=== PATIENT | female | born 1950 | race Caucasian/White ===

== ENCOUNTER → 2016-09-04 | Outpatient (CLI) | payer BC ==
[~2016-09-04] MED LIST: ALBUAER2 INH; CALC500C3 PO; CLR10 PO; EFFSR150 PO; GABA-113 PO; GFNSR600 PO; LEVO200T PO; LISI-725 PO; MOME50SP5; MULT-506 PO; OMEG10007 PO; PRLSR20 PO; SIMV40TA2 PO; SNG10 PO; SODI5OIN4 OPB; ZNTT/150 PO
[2016-09-04 17:42] LABS: ALT/SGPT 29 U/L (12-78); BLOOD UREA NITROGEN 18 mg/dl (7-18); BUN/CREATININE RATIO 23.3 (10-20); CALCIUM 9.5 mg/dl (8.5-10.1); CARBON DIOXIDE 31 mmol/L (21-32); CHLORIDE 100 mmol/L (98-107); CHOLESTEROL 162 mg/dl (0-200); CREATININE 0.75 mg/dl (0.60-1.20); GLUCOSE 96 mg/dl (70-99); POTASSIUM 3.8 mmol/L (3.5-5.1); SODIUM 140 mmol/L (136-145)
[2016-09-04 17:53] LABS: ALB/GLOB RATIO 0.9 (0.9-2); ALKALINE PHOSPHATASE 110 U/L (45-117); AST/SGOT 24 U/L (15-37); CHOLESTEROL/HDL RATIO 3.3; HDL CHOLESTEROL 49 mg/dl; LDL CHOLESTEROL CALCULATED 93 mg/dl; THYROID STIMULATING HORMONE 0.149 uIu/ml (0.300-4.500); TRIGLYCERIDES 102 mg/dl (0-150); VERY LOW DENSITY LIPOPROT CALC 20 mg/dl
== END | disposition home or self-care (01) ==
LOC: C.LABPVFM 10:53
PROVIDERS: ATTEND Family Medicine
DX: I10 Essential (primary) hypertension (principal); E78.00 Pure hypercholesterolemia, unspecified; E03.9 Hypothyroidism, unspecified; F32.9 Major depressive disorder, single episode, unspecified; R74.8 Abnormal levels of other serum enzymes; R73.9 Hyperglycemia, unspecified

== ENCOUNTER → 2017-04-23 | Outpatient (CLI) | payer BC ==
[2017-04-23 17:54] LABS: ALT/SGPT 31 U/L (12-78); AST/SGOT 26 U/L (15-37); BLOOD UREA NITROGEN 15 mg/dl (7-18); BUN/CREATININE RATIO 19.4 (10-20); CARBON DIOXIDE 35 mmol/L (21-32); CHLORIDE 99 mmol/L (98-107); CREATININE 0.75 mg/dl (0.60-1.20); GLUCOSE 96 mg/dl (70-99); POTASSIUM 3.9 mmol/L (3.5-5.1); SODIUM 137 mmol/L (136-145)
[2017-04-23 18:05] LABS: ALB/GLOB RATIO 0.9 (0.9-2); ALKALINE PHOSPHATASE 107 U/L (45-117); CHOLESTEROL 169 mg/dl (0-200); CHOLESTEROL/HDL RATIO 3.4; HDL CHOLESTEROL 49 mg/dl; LDL CHOLESTEROL CALCULATED 96 mg/dl; TRIGLYCERIDES 121 mg/dl (0-150); VERY LOW DENSITY LIPOPROT CALC 24 mg/dl
[2017-04-23 18:44] LABS: ESTIMATED AVERAGE GLUCOSE 128 mg/dl; HA1C FLAG Normal (Normal)
== END | disposition home or self-care (01) ==
LOC: C.LABPVFM 11:46
PROVIDERS: ATTEND Family Medicine
DX: I10 Essential (primary) hypertension (principal); R73.01 Impaired fasting glucose; E78.00 Pure hypercholesterolemia, unspecified; E03.9 Hypothyroidism, unspecified

== ENCOUNTER → 2017-05-19 | Outpatient (CLI) | payer BC ==
--- NOTE | 2017-05-19 10:49 | DIAGNOSTIC IMAGING REPORT ---
R RIBS UNILATERAL WITH PA CHEST CLINICAL HISTORY: 66 years-old Female presenting with RIB PAIN ON RT SIDE. TECHNIQUE: Frontal and oblique views of the right ribs and PA view of the chest were obtained. COMPARISON: None. FINDINGS: Atherosclerosis of aortic arch. Cardiac silhouette normal in size. Lungs and pleural spaces clear. Degenerative changes of the spine. Minimal cortical discontinuity of the lateral right seventh rib suggesting acute fracture. IMPRESSION: Findings concerning for acute fracture of the right lateral seventh rib. Electronically signed by: Mario Rubio M.D. 05/19/2017 10:48 AM Dictated Date/Time: 05/19/2017 10:46 AM
== END | disposition home or self-care (01) ==
LOC: C.RADPV 10:16
PROVIDERS: ATTEND Family Medicine
DX: R07.81 Pleurodynia (principal)

== ENCOUNTER → 2017-07-16 | Outpatient (CLI) | payer BC ==
--- NOTE | 2017-07-16 14:35 | MAMMOGRAPHY REPORT ---
BILATERAL DIGITAL SCREENING MAMMOGRAM WITH CAD: 07/16/2017 CLINICAL HISTORY: Routine screening. Patient has no complaints. TECHNIQUE: Current study was also evaluated with a Computer Aided Detection (CAD) system. Bilateral CC and MLO views were obtained. COMPARISON: Comparison is made to exams dated: 07/15/2016 mammogram, 07/10/2015 mammogram, 4 mammogram, 07/05/2013 mammogram, 07/01/2012 mammogram, and 06/17/2011 mammogram - [facility]. BREAST COMPOSITION: There are scattered areas of fibroglandular density in both breasts. FINDINGS: No suspicious masses, calcifications, or areas of architectural distortion are noted in ei ther breast. There has been no significant interval change compared to prior exams. IMPRESSION: ACR BI-RADS CATEGORY 1: NEGATIVE There is no mammographic evidence of malignancy. A 1 year screening mammogram is recommended. The pa tient will receive written notification of the results. Approximately 10% of breast cancers are not detected with mammography. A negative mammographic report should not delay biopsy if a clinically suggestive mass is present. Subha Ruiz M.D. /:07/16/2017 11:38:39 Forging Operator: Mary WAHL)(Jeff), [facility] letter sent: Normal 1/2 BI-RADS Code: ACR BI-RADS Category 1: Negative
== END | disposition home or self-care (01) ==
LOC: C.MAMM 10:50
PROVIDERS: ATTEND Obstetrics & Gynecology
DX: Z12.31 Encounter for screening mammogram for malignant neoplasm of breast (principal)

== ENCOUNTER 2019-01-31 08:19 | Inpatient (IN) ==
--- NOTE | 2019-01-28 08:46 | Anesthesiology Consultation ---
Date of Service January 28, 2019 Assessment & Plan (1) Encounter for pre-operative examination: Wound clinic clearance 01/20/2019: Regarding venous stasis ulcers of both lower extremities: "The patient's wound has remained healed...She has been cleared to have her shoulder surgery." CHECK BSG AM DOS CHECK BMP AM DOS Chart Review Chart Review: Acceptable Risk for Surgery (pending BMP results AM DOS) and Patient NOT seen in Pre Admission Testing History Surgery Operation Date: 01/31/19 12:40 Proposed Procedures p Left Shoulder Arthroscopy with Rotator Cuff Repair, Subacromial Decompression, Distal Clavicle Excision - Raoul Trevizo MD Height/Weight Height: 5 ft 2 in Weight: 120.202 kg Allergies Allergy/AdvReac Type Severity Reaction Status Date / Time acetaminophen Allergy Mild RASH Verified 01/28/19 07:01 codeine Allergy Mild RASH Verified 01/28/19 07:01 Sulfa (Sulfonamide Allergy Mild RASH Verified 01/28/19 07:01 Antibiotics) sulfamethoxazole Allergy Mild RASH Verified 01/28/19 07:01 trimethoprim Allergy Mild RASH Verified 01/28/19 07:01 Medications Home Medications Medication Instructions Recorded Confirmed Last Taken albuterol sulfate HFA 90 2 puffs INH QID PRN 10/25/18 01/28/19 Unknown mcg/actuation aerosol inhaler calcium carbonate 200 mg calcium 1,000 mg PO QAM tab 10/25/18 01/28/19 Unknown (500 mg) chewable tablet geriatric multivit with iron and 1 tab PO QAM 10/25/18 01/28/19 Unknown minerals tablet levothyroxine 200 mcg tablet 200 mcg PO QAM 10/25/18 01/28/19 Unknown lisinopril 20 mg tablet 10 mg PO QAM 10/25/18 01/28/19 Unknown loratadine 10 mg tablet 10 mg PO QAM 10/25/18 01/28/19 Unknown mometasone 50 mcg/actuation nasal 2 sprays INTNAS DAILY 10/25/18 01/28/19 Unknown spray montelukast 10 mg tablet 10 mg PO QPM 10/25/18 01/28/19 Unknown omega-3 fatty acids 1,000 mg 1,000 mg PO QAM 10/25/18 01/28/19 Unknown capsule omeprazole 20 mg capsule,delayed 20 mg PO QPM 10/25/18 01/28/19 Unknown release ranitidine 150 mg tablet 150 mg PO 10/25/18 01/28/19 Unknown simvastatin 40 mg tablet 40 mg PO 10/25/18 01/28/19 Unknown sodium chloride 5 % eye ointment 1 appln OP 10/25/18 01/28/19 Unknown venlafaxine ER 150 mg 150 mg PO QA 10/25/18 01/28/19 Unknown capsule,extended release 24 hr calcium carbonate [Tums] 200 mg PO QA 01/28/19 01/28/19 Unknown hydrochlorothiazide 25 mg PO QA 01/28/19 01/28/19 Unknown metoprolol succinate 25 mg PO QA 01/28/19 01/28/19 Unknown solifenacin [Vesicare] 5 mg PO QPM 01/28/19 01/28/19 Unknown Past Medical History Medical History HTN (hypertension) (Acute) Hypothyroidism (Acute) Idiopathic peripheral neuropathy (Acute) Chronic venous insufficiency Depression Diabetes mellitus, type 2 diet controlled Fatty liver GERD (gastroesophageal reflux disease) History of left breast cancer s/p lumpectomy + tamoxifen x 5 years Hyperlipidemia Macular degeneration Osteoarthritis Seasonal allergies TMJ click Urinary incontinence Past Family History Family History Brother Family history of diabetes mellitus Past Surgical History Surgical History History of colonoscopy History of lumpectomy of left breast History of nasal surgery History of partial hysterectomy Social History Smoking Status: Never smoker Do You Dip or Chew Tobacco: No Hx Alcohol Use: No Hx Substance Use: No substance use type: does not use Testing Laboratory Results 01/25/19 WBC: 9.11 H/H: 14.3/41.6 PLATELETS: 302 A1C: 6.5% Electrocardiogram Date: 01/25/19 Findings: + ST @ (106) Left axis deviation. Minimal voltage criteria for LVH, maybe normal variant. Cannot rule out anterior infarct, age undetermined. Compared with EKG of 04/14/2008, nonspecific T wave abnormality has replaced inverted T waves in inferior leads. Chest X-Ray Date: 01/25/19 Findings: + NAD FINDINGS: Cardiomediastinal and hilar silhouettes are unchanged. Mild right hemidiaphragm elevation appears stable. Calcification the thoracic aortic arch. No pneumothorax, pleural effusion, focal airspace consolidation or overt pulmonary edema. Degenerative changes are seen about the shoulders and spine. IMPRESSION: No acute process. Stress Test Date: 12/24/17 Type: exercise Resting EF: 55-60% Negative exercise stress echocardiogram for ischemia at greater than 100% MPHR. The patient complained of no exercise-induced chest pain. Baseline ec hocardiogram notes normal left ventricular function. Mild tricuspid regurgitation.
--- NOTE | 2019-01-30 20:16 | History and Physical Report ---
DATE OF ADMISSION: 01/31/2019 CHIEF COMPLAINT: Left shoulder pain and weakness after a fall. HISTORY OF PRESENT ILLNESS: This is a 68-year-old female patient of Dr. Gomes who sustained a fall at home and injured her left shoulder. After failure of conservative treatment. An MRI confirmed that she had a rotator cuff tear, impingement and bursitis. The patient elected to proceed with a left shoulder arthroscopic rotator cuff repair and subacromial decompression. PAST MEDICAL HISTORY: Hypertension, hypercholesterolemia, irregular heartbeat, asthma, hypothyroidism, rheumatoid arthritis, TMJ, sciatica, acid reflux and obesity. SOCIAL HISTORY: Nonsmoker, nondrinker. PAST SURGICAL HISTORY: Nasal surgery, partial hysterectomy. FAMILY HISTORY: Noncontributory. REVIEW OF SYSTEMS: Chronic left shoulder pain and weakness, status post a fall; otherwise, denies any shortness of breath, chest pain, nausea, vomiting or any other joint complaints. MEDICATIONS: 1. Centrum Silver daily. 2. Claritin 10 mg daily. 3. Fish oil daily. 4. Hydrochlorothiazide 25 mg daily. 5. Levoxyl 150 mcg daily. 6. Metoprolol 25 mg daily. 7. Nasonex 2 sprays in each nostril twice daily. 8. Singulair 10 mg daily. 9. Iftikhar ophthalmic ointment to eyes at bedtime daily. 10. Omeprazole 20 mg daily. 11. ProAir HFA 108 mcg inhalation 2 puffs by mouth every 4 hours as needed. 12. Ranitidine 150 mg daily. 13. Simvastatin 40 mg daily. 14. Tums daily. 15. Venlafaxine 150 mg daily. 16. VESIcare 5 mg daily. ALLERGIES: TYLENOL WITH CODEINE, SEPTRA, AND SEASONAL ALLERGIES. PHYSICAL EXAMINATION: GENERAL: Well-developed, well-nourished 58-year-old female in no acute distress. She is alert and oriented x3 and pleasant. HEENT: Normocephalic, atraumatic. Extraocular motions are intact. Pupils are equal and reactive to light. HEART: Tachycardic at 100 today in the office. No murmurs. LUNGS: Clear. ABDOMEN: Soft, nontender, bowel sounds are present. EXTREMITIES: Left shoulder reveals active range of motion of 0-110, passively to 180. She has crepitation with range of motioning. She has 3/5 strength globally with pain. NEUROLOGIC: Neurovascularly, she is intact in her left upper extremity. DIAGNOSES: Left shoulder rotator cuff tear and impingement. She has a history of hypertension, hypercholesterolemia, irregular heartbeat, asthma, hypothyroidism, rheumatoid arthritis, temporomandibular joint sciatica, acid reflux, obesity. PLAN: The patient was advised of her diagnosis. Indications, risks, benefits, postop course have all been reviewed. The patient wished to proceed with a left shoulder arthroscopic rotator cuff repair and subacromial decompression. Necessary consent forms, preoperative testing and clearances will be obtained.
[~2019-01-31 08:19] MED LIST changes: -ALBUAER2 INH; -CALC500C3 PO; +CEFAZOLIN 3000MG 65 ML IV SCH; -CLR10 PO; +DEXAMETHASONE SOD INJ 4 MG/ML VIAL ONE; -EFFSR150 PO; +EPINEPHrine INJ 1 MG/ML AMP ONE; -GABA-113 PO; -GFNSR600 PO; -LEVO200T PO; +LIDOCAINE HCL 2% 2 ML VIAL/AMP(20MG/ML) INFIL ONE; -LISI-725 PO; +LR 15ML/HR IV SCH; +MIDAZOLAM HCL 1 MG/ML 2ML VIAL ONE; -MOME50SP5; -MULT-506 PO; -OMEG10007 PO; -PRLSR20 PO; +PROPOFOL IV EMULSION 10 MG/ML 20 ML VIAL IV ONE; +ROPIVACAINE 0.5% 5 MG/ML 30 ML VIAL ONE; -SIMV40TA2 PO; -SNG10 PO; -SODI5OIN4 OPB; +SUCCINYLCHOLINE CHLORIDE 20 MG/ML 10 ML VIAL ONE; -ZNTT/150 PO; +fentaNYL citrate 100 MCG/2 ML VIAL ONE
[2019-01-31] MEDS ORDERED: EpINEphrine HCL INJ 1 MG/ML 1ML SYRINGE ONE ×2 (08:50→12:28)
[2019-01-31 09:36] LABS: BUN Creatinine Ratio 20.6 (10-20); Calcium 9.8 mg/dl (8.5-10.1); Creatinine Clr Calc Pharmacy 77.5 ml/min; Est GFR (African American) 77.2; Est GFR (Non-African American) 66.6; Potassium 3.7 mmol/L (3.5-5.1)
--- NOTE | 2019-01-31 09:49 | History & Physical Bridge Note ---
Date of Service January 31, 2019 History & Physical Bridge Note I have examined the patient, reviewed the History & Physical and in the interval since the performance of the History & Physical I have noted the following changes of clinical significance: no changes noted
[2019-01-31] MEDS ORDERED: PHENYLEPHRINE HCL 10 MG/ML VIAL ONE ×2 (10:30→10:46)
[2019-01-31] MEDS ORDERED: ePHEDrine sulfate 50 MG/ML AMP ONE (10:30)
[2019-01-31] MEDS ORDERED: PROPOFOL IV EMULSION 10 MG/ML 20 ML VIAL IV ONE ×2 (11:34)
[2019-01-31] MEDS ORDERED: OXYCODONE/ACETAMINOPHEN 5mg/325mg TAB PO PRN ×2 (13:27)
--- NOTE | 2019-01-31 13:31 | Post Operative Brief Note ---
Immediate Post Op Note v1 Date of Surgery January 31, 2019 Pre & Post Diagnosis Operation Date: 01/31/19 11:00 Pre-Op Diagnosis: Chronic posttraumatic rotator cuff tear subacromial impingement and AC joint arthritis morbid obesity BMI 50.1 Post-Op Diagnosis: Chronic posttraumatic rotator cuff tear subacromial impingement AC joint arthritis and glenohumeral arthritis and subsynovial biceps tendon morbid obesity BMI 50.1 Procedure Operation Date: 01/31/19 11:00 Actual Procedures p Left Shoulder Arthroscopy with Rotator Cuff Repair, Rotator Cuff glenohumeral joint and bursal debridement, Subacromial Decompression, Distal Clavicle Excision(Left) - Raoul Trevizo MD Surgeon Raoul Trevizo MD Apartment Leasing Consultant Dickson WHITFIELD Estimated Blood Loss 15 Findings See Below Same as postop diagnosis with weight 5 foot 2 inch 124.3 kg with BMI 50.1 Specimens None Anesthesia Type General Regional Complications none Disposition Accompanied Patient To Recovery: No Disposition: Recovery Room Overlapping Procedure I was immediately available: during the entire case.
[2019-01-31] MEDS ORDERED: HYDROmorphone INJ 1 MG/ML SYRINGE IV PRN (13:48)
[2019-01-31] MEDS ORDERED: ePHEDrine sulfate 50 MG/ML AMP IV PRN (13:48)
[2019-01-31] MEDS ORDERED: LABETALOL HCL IV 5 MG/ML 20ML IV PRN (13:48)
[2019-01-31] MEDS ORDERED: FLUMAZENIL 0.1 MG/1 ML 10 ML VIAL IV PRN (13:48)
[2019-01-31] MEDS ORDERED: ATROPINE SULFATE 0.1 MG/ML 10ML SYR IV PRN (13:48)
[2019-01-31] MEDS ORDERED: ONDANSETRON INJ 2 MG/ML 2 ML VIAL IV PRN ×2 (13:48→17:59)
[2019-01-31] MEDS ORDERED: NALOXONE HCL 0.4 MG/1 ML VIAL/CARP IV PRN (13:48)
[2019-01-31] MEDS ORDERED: PROMETHAZINE HCL 12.5 MG in SODIUM CHLORIDE 0.9% 50 ML IV PRN (13:48)
--- NOTE | 2019-01-31 14:17 | Anesthesiology Progress Note ---
Date of Service January 31, 2019 Anesthesia Post Procedure Vital Signs Vital Signs: Temp Pulse Resp BP Pulse Ox 01/31/19 14:10 36.4 C L 105 H 18 136/73 98 01/31/19 14:00 36.4 C L 107 H 24 113/77 95 01/31/19 13:50 36.2 C L 107 H 20 110/76 99 01/31/19 13:40 36.2 C L 108 H 26 H 134/85 92 01/31/19 13:30 36.2 C L 112 H 14 122/87 96 01/31/19 09:01 37.1 C 102 H 20 170/71 H 95 Transfer of Care Handoff Completed per policy Notes Mental Status: alert / awake / arousable Patient Amnestic to Procedure: Yes Nausea / Vomiting: adequately controlled Pain: adequately controlled Airway Patency, RR, SpO2: stable & adequate BP & HR: stable & adequate Hydration State: stable & adequate Anesthetic Complications: no major complications apparent
--- NOTE | 2019-01-31 15:53 | Operative Report ---
Post Operative Report Pre & Post Diagnosis Operation Date: 01/31/19 11:00 Pre-Op Diagnosis: Posttraumatic rotator cuff tear, subacromial impingement, AC joint arthritis, morbid obesity BMI 50.1 Post-Op Diagnosis: Same, glenohumeral osteoarthritis, chronic subacromial bursitis, impingement from AC joint with advanced AC joint arthritis. Procedure Operation Date: 01/31/19 11:00 Actual Procedures p Left Shoulder Arthroscopy with Rotator Cuff Repair, Rotator Cuff ,glenohumeral joint and bursal debridement, Subacromial Decompression, Distal Clavicle Excision(Left), increased difficulty secondary to morbid obesity BMI 50.1- Raoul Trevizo MD Surgeon Raoul Trevizo MD Yard Goods Salesperson Dickson WHITFIELD Estimated Blood Loss 15 Findings Consistent with Post-Op Diagnosis Specimens None Drains None Anesthesia Type General Regional Complications none Disposition Accompanied Patient To Recovery: No Disposition: Recovery Room Indications 68-year-old female with history of a fall chronic pain weakness disability no relief over time with conservative measures x-rays and MRI demonstrates she is hypertrophic AC joint arthritis with a subchondral cyst in the superior lateral AC joint. She probably has impingement. She has type II acromion on outlet view. There is small anterior acromial spur extending into the CA ligament. There is a very large rotator cuff tear with rotator cuff tendinopathy including supraspinatus and infraspinatus tendons. Description of Procedure The patient was to the operating room anesthetized under regional block and general anesthesia. The patient was positioned on the operating table in the 70 beachchair position. All of the other extremities were well-padded. The left upper extremity was prepped and draped in the usual sterile fashion. Examination demonstrated she had an obese arm obese shoulder body in general was obese. But some increased difficulty positioning her due to her obesity. she did have a flexible shoulder with good range of motion. Arthroscopy of the left shoulder was performed via anterior and posterior arthroscopy portals. Posterior portal was placed in the soft spot and the anterior portal was placed in the rotator interval. Subsequent portals included lateral subacromial working portal superior lateral anterior and posterior placed incisions for suture anchor placement. The following findings were noted: In the glenoid joint she had a central area of wear with grade 3 wear and delamination of the superficial articular surface. Is also grade 3 fraying of the articular surface underlying the anterior rotator cuff and biceps superiorly. The subscapularis tendon was intact the biceps tendon was partially subsynovial. The rotator cuff and a large U-shaped tear with about 50% to 70% retraction to the glenoid at least. The tear extended into the infraspinatus and there was some thin bursal tissue bridging the infraspinatus to the posterior humeral head but there is no attachment of this to the bone and this was consistent with chronic scarred bursal tissue. Patient had a complete supraspinatus and infraspinatus tear off bone. The teres minor was intact. There was chronic thickened subacromial bursitis and clearly the patient had grade 4 osteoarthritis in the AC joint with low-lying distal clavicle and spurs at the acromial facet causing impingement. Biceps anchor was still intact and biceps tendon itself looked normal. The labrum was intact circumferentially without tears. The glenoid articular surface was normal. Attention was first taken to debriding the humeral articular surface of the glenoid removing all delaminated flaps and shaving down the frayed area of grade 3 wear on the superior aspect of the head. He is a radio frequency ablator to release the synovium so that we could do a capsule release underlying the rotator cuff and off the base of the coracoid rotator interval area. This helped mobilize the retracted rotator cuff tear well. The edge of the rotator cuff undersurface of the rotator cuff was debrided with a resector blade. The footprint of the supraspinatus and infraspinous debrided down to bone taking care not to decorticate any bone. The thickened bursa was resected with the 4.5 resector blade. The bursa and periosteum on the undersurface of the acromion was ablated with the radiofrequency ablator and the CA ligament was released off the anterior acromion. The CA ligament was debrided back. A 5.5 bur was used to plane down the acromion to type I flat shape. A radio frequency ablator was used to ablate the undersurface of 1 cm of the distal clavicle ablating the inferior capsule. This exposed the spurs on the undersurface of the clavicle. A 5.5 bur was used to resect 1 cm distal clavicle using the ken through both the lateral and anterior portal. The superior and posterior capsule was preserved for stability. The rotator cuff was then repaired using 2 ultra braid tapes as ripstop suture technique 1 through the supraspinatus 1 through the infraspinatus placed in inverted mattress fashion. And 2 triple loaded Helicoil [employer]hew suture anchors were placed in the lateral footprint of the supraspinatus and infraspinatus and a 3 sutures were placed in simple fashion around the ripstop technique suture using Expresso suture passer. Sutures were tied with A [place] sliding locking knot with 3 reversed half hitches and alternating posts. The tails of the tapes were placed into 5.5 footprint anchors anteriorly and posteriorly laterally. The repair was secure with the arm to side with rotation no impingement. The portal sites were closed with interrupted nylon sutures. Sterile dressings were applied and a sling immobilizer. There was clearly increased level difficulty throughout the procedure due to her morbid obesity BMI 50.1 with patient being 5foot to 124.33 kg. The patient tolerated the procedure well. My physician food and beverage assistant Dickson WHITFIELD, assisted in arm positioning, instrument management, suture management when indicated, incision closure, sling application, and will participate in the postoperative care of the patient. I attest to the content of the Intraoperative Record and any orders documented therein. Any exceptions are noted below.
--- NOTE | 2019-01-31 17:49 | Anesthesiology Progress Note ---
Date of Service January 31, 2019 Subjective Called by nurse for pt in SDS c/o right sided chest pain. Decision was made earlier to admit pt for observation and supplemental oxygen because of marginal SaO2 level. SaO2 currently mid 90's on 2 l/m NC. Mild tachycardia noted, vital signs otherwise wnl. At this time pt c/o pain at right breast. Moderate in severity, tender to touch. 12-lead EKG done, unchanged from previous. Symptom is likely related to positioning and can be expected to improve spontaneously. Reassurance offered. Physical Exam Vital Signs: Last Vital Signs Temp 36.3 C L 01/31/19 17:11 Pulse 108 H 01/31/19 17:11 Resp 16 01/31/19 17:11 BP 127/84 01/31/19 17:11 Pulse Ox 94 01/31/19 17:11 Results & Data Medications Administered Lactated Ringer's (Lr) 1,000 mls @ 15 mls/hr IV .Q24H NURYS Stop: 02/01/19 05:59 Last Infusion: 01/31/19 10:09 Dose: 0 mls/hr Documented by: [id number] Admin: 01/31/19 09:20 Dose: 15 mls/hr Documented by: [id number] Cefazolin Sodium (Ancef 3000mg) 65 mls @ 130 mls/hr IV PREOP NURYS; Protocol Stop: 01/31/19 18:00 Last Admin: 01/31/19 10:22 Dose: 130 mls/hr Documented by: [id number] Oxycodone/Acetaminophen (Percocet 5mg/325mg) 1 tab PO Q4H PRN PRN Reason: Pain(scale 1-5) Stop: 02/01/19 13:26 Last Admin: 01/31/19 14:49 Dose: 1 tab Documented by: [id number]
[2019-01-31] MEDS ORDERED: ALBUTEROL HFA 8 GM INHALER INH PRN (17:59)
[2019-01-31] MEDS ORDERED: ZOLPIDEM TARTRATE 5 MG TAB PO PRN (17:59)
[2019-01-31] MEDS ORDERED: SODIUM CHLORIDE 0.9% 1000ML 1,000 ML IV SCH (17:59)
[2019-01-31] MEDS ORDERED: ACETAMINOPHEN 325 MG TAB PO PRN (17:59)
[2019-01-31] MEDS: SIMVASTATIN 40 MG TAB PO SCH (20:56)
[2019-01-31] MEDS: SODIUM CHLORIDE 5% (MURO) OP OINT 3.5 GM TUBE OP SCH (20:56)
[2019-01-31] MEDS: PANTOprazole 40 MG TAB PO SCH (20:57)
[2019-01-31] MEDS: MONTELUKAST SODIUM 10 MG TABLET PO SCH (20:57)
[2019-01-31] MEDS ORDERED: SOLIFENACIN 5 MG PO SCH (21:00)
[2019-02-01] MEDS: OXYCODONE/ACETAMINOPHEN 5mg/325mg TAB PO PRN ×3 (00:42→22:53)
[2019-02-01] MEDS: LEVOTHYROXINE SODIUM 150 MCG TABLET PO SCH (05:40)
[2019-02-01] MEDS: HYDROmorphone INJ 0.5 MG/0.5 ML SYR IV PRN ×3 (06:08→16:29)
[2019-02-01] MEDS: FLUTICASONE PROPIONATE NA SPR 16 GM BTL NAE SCH (08:18)
[2019-02-01] MEDS: LORATADINE 10 MG TAB PO SCH (08:19)
[2019-02-01] MEDS: METOPROLOL SUCC 25MG EXT REL TAB PO SCH (08:19)
[2019-02-01] MEDS: LISINOPRIL 10 MG TAB PO SCH (08:20)
[2019-02-01] MEDS: CALCIUM CARBONATE 500 MG CHEWABLE TAB PO SCH ×2 (08:20→08:21)
[2019-02-01] MEDS: VENLAFAXINE HCL XR 150 MG CAPXR PO SCH (08:21)
[2019-02-01] MEDS: CEROVITE ADV FORMULA TAB PO SCH (08:21)
[2019-02-01] MEDS: hydroCHLOROthiazide 25 MG TAB PO SCH (08:21)
--- NOTE | 2019-02-01 08:59 | XRay Report ---
XR chest 1V portable CLINICAL HISTORY: Hypoxia. COMPARISON STUDY: Chest radiograph January 25, 2019. FINDINGS: There is no pneumothorax or pleural effusion. Linear bilateral opacities favor atelectasis. There is no evidence for pulmonary edema. Cardiac size is within normal limits. IMPRESSION: 1. No acute cardiopulmonary findings. 2. Linear bilateral opacities suggestive of atelectasis. Electronically signed by: Seun Whitley M.D. 02/01/2019 8:58 AM
[2019-02-01] MEDS: ALBUT/IPRATROP 3MG/0.5MG NEB 3 ML VIAL NEB SCH ×4 (09:00→19:32)
--- NOTE | 2019-02-01 09:06 | Anesthesiology Progress Note ---
Date of Service February 01, 2019 Patient is stable;sitting up in bed, receiving a nebulizer breathing TX.Pt states she has been up and ambulating; She is expecting to be discharged today. Physical Exam Vital Signs: Last Vital Signs Temp 36.6 C 02/01/19 07:28 Pulse 106 H 02/01/19 09:00 Resp 20 02/01/19 09:00 BP 129/76 02/01/19 07:28 Pulse Ox 96 02/01/19 09:00 Results & Data Medications Administered Albuterol (Duoneb) 3 ml NEB QIDR [facility] Stop: 03/03/19 08:44 Last Admin: 02/01/19 09:00 Dose: 3 ml Documented by: [id number] Calcium Carbonate (Tums) 500 mg PO [facility] Stop: 03/03/19 08:59 Last Admin: 02/01/19 08:21 Dose: 500 mg Documented by: [id number] Calcium Carbonate (Tums) 1,000 mg PO [facility] Stop: 03/03/19 08:59 Last Admin: 02/01/19 08:20 Dose: 1,000 mg Documented by: [id number] Fluticasone Propionate (Flonase) 2 sprays [place]ON DAILY [facility] Stop: 03/03/19 08:59 Last Admin: 02/01/19 08:18 Dose: 2 sprays Documented by: [id number] Hydrochlorothiazide (Hctz) 25 mg PO [facility] Stop: 03/03/19 08:59 Last Admin: 02/01/19 08:21 Dose: 25 mg Documented by: [id number] Hydromorphone HCl (Dilaudid) 0.5 mg IV Q3H PRN PRN Reason: Pain Stop: 02/14/19 17:58 Last Admin: 02/01/19 06:29 Dose: 0.5 mg Documented by: [id number] [facility] Stop: 03/03/19 06:29 Last Admin: 02/01/19 05:40 Dose: 150 mcg Documented by: [id number] Lisinopril (Zestril) 10 mg PO [facility] Stop: 03/03/19 08:59 Last Admin: 02/01/19 08:20 Dose: 10 mg Documented by: [id number] Loratadine (Claritin) 10 mg PO [facility] Stop: 03/03/19 08:59 Last Admin: 02/01/19 08:19 Dose: 10 mg Documented by: [id number] Metoprolol Succinate (Toprol Xl) [facility] Stop: 03/03/19 08:59 Last Admin: 02/01/19 08:19 Dose: 25 mg Documented by: [id number] Miscellaneous (Order Awaiting Action) 1 ea N/A QS [facility] Stop: 03/03/19 00:00 Last Admin: 02/01/19 08:17 Dose: Not Given Documented by: [id number] Admin: 01/31/19 23:39 Dose: Not Given Documented by: [id number] Montelukast Sodium (Singulair) 10 mg PO QPM [facility] Stop: 03/02/19 20:59 Last Admin: 01/31/19 20:57 Dose: 10 mg Documented by: [id number] Multivitamins/Minerals (Multivitamin W/ Minerals Tab) 1 tab PO [facility] Stop: 03/03/19 08:59 Last Admin: 02/01/19 08:21 Dose: 1 tab Documented by: [id number] Oxycodone/Acetaminophen (Percocet 5mg/325mg) 1 - 2 tab PO Q4H PRN PRN Reason: Pain Stop: 02/14/19 17:58 Last Admin: 02/01/19 05:40 Dose: 2 tab Documented by: [id number] Admin: 02/01/19 00:42 Dose: 2 tab Documented by: [id number] Pantoprazole Sodium (Protonix) 40 mg PO QPM [facility] Stop: 03/02/19 20:59 Last Admin: 01/31/19 20:57 Dose: 40 mg Documented by: [id number] Ranitidine HCl (Zantac) 150 mg PO [facility] Stop: 03/02/19 20:59 Last Admin: 01/31/19 20:56 Dose: 150 mg Documented by: [id number] Simvastatin (Zocor) 40 mg PO [facility] Stop: 03/02/19 20:59 Last Admin: 01/31/19 20:56 Dose: 40 mg Documented by: [id number] Sodium Chloride (Iftikhar 128 Oph) 1 appln OP [facility] Stop: 03/02/19 20:59 Last Admin: 01/31/19 20:56 Dose: 1 appln Documented by: [id number] Venlafaxine HCl (Effexor Extended Release) 150 mg PO QAM [facility] Stop: 03/03/19 08:59 Last Admin: 02/01/19 08:21 Dose: 150 mg Documented by: [id number]
--- NOTE | 2019-02-01 09:08 | Anesthesiology Progress Note ---
Date of Service February 01, 2019 Anesthesia Post Procedure Vital Signs Vital Signs: Temp Pulse Pulse Pulse Resp BP Pulse Ox 02/01/19 09:00 106 H 20 96 02/01/19 07:29 105 H 20 93 02/01/19 07:28 36.6 C 107 H 22 129/76 77 L 02/01/19 06:06 92 02/01/19 03:01 36.7 C 102 H 18 133/68 95 01/31/19 23:26 36.6 C 100 H 18 112/62 91 01/31/19 19:41 36.6 C 111 H 18 112/68 92 01/31/19 17:45 36.6 C 110 H 16 164/96 H 93 01/31/19 17:11 36.3 C L 108 H 16 127/84 94 01/31/19 16:25 93 01/31/19 16:15 36.2 C L 109 H 14 114/82 88 L 01/31/19 15:42 94 01/31/19 15:40 86 L 01/31/19 15:24 107 H 16 120/61 93 01/31/19 14:54 110 H 16 130/75 93 01/31/19 14:24 36.4 C L 108 H 16 141/90 H 93 01/31/19 14:10 36.4 C L 105 H 18 136/73 98 01/31/19 14:00 36.4 C L 107 H 24 113/77 95 01/31/19 13:50 36.2 C L 107 H 20 110/76 99 01/31/19 13:40 36.2 C L 108 H 26 H 134/85 92 01/31/19 13:30 36.2 C L 112 H 14 122/87 96 Pain Intensity Left Shoulder: Pain Intensity: 8 Notes Mental Status: alert / awake / arousable Patient Amnestic to Procedure: Yes Nausea / Vomiting: adequately controlled Pain: improving with treatment Airway Patency, RR, SpO2: stable & adequate BP & HR: stable & adequate Hydration State: stable & adequate Anesthetic Complications: no major complications apparent
[2019-02-01 09:32] LABS: Eosinophils # (auto) 0.01 K/uL (0-0.5); Eosinophils % (auto) 0.1 %; Hematocrit (blood only) 36.1 % (37-47); Immature Granulocytes # (auto) 0.02 K/uL (0.00-0.02); Immature Granulocytes % (auto) 0.2 %; Lymphocytes # (auto) 1.42 K/uL (1.2-3.4); Lymphocytes % (auto) 14.4 %; Mean Corpuscular Hgb Conc 33.2 g/dL (32-36); Mean Corpuscular Volume 91.9 fL (80-100); Mean Platelet Volume 9.1 fL (7.4-10.4); Monocytes % (auto) 8.1 %; Neutrophils % (auto) 77.2 %; Platelet Count 222 K/uL (130-400); RDW Coefficient of Variation 12.9 % (11.5-14.5); RDW Standard Deviation 43.1 fL (36.4-46.3); Red Blood Count 3.93 M/uL (4.2-5.4); White Blood Count 9.85 K/uL (4.8-10.8)
[2019-02-01 10:08] LABS: Est GFR (African American) 90.4; Potassium 3.7 mmol/L (3.5-5.1)
[2019-02-01 10:09] LABS: Albumin Globulin Ratio 0.8 (0.9-2); Albumin Level 2.9 gm/dl (3.4-5.0); BUN Creatinine Ratio 14.8 (10-20); Bilirubin,Total 0.3 mg/dl (0.2-1); Calcium 7.7 mg/dl (8.5-10.1); Creatinine Clr Calc Pharmacy 88.2 ml/min; Globulin 3.6 gm/dl (2.5-4.0); Total Protein 6.5 gm/dl (6.4-8.2)
--- NOTE | 2019-02-01 12:32 | Orthopedic Progress Note ---
Date of Service February 01, 2019 Assessment & Plan (1) Rotator cuff tear arthropathy of left shoulder: POD #1, Left shoulder RCR. No PT, may loosen sling to move elbow ONLY. Continue O2 protocol, improving. Encourage ambulation, improving. Pain control. Subjective POD #1, Still has not walked more than to the bathroom, has been improving per nursing, occas needs O2. States she lives alone but not interested in rehab. Denies, SOB, CP, N/V. States she is still very painful. Physical Exam Physical Exam: Left shoulder dressings c/d/i, no drainage. Sling in tact. Fingers mobile. A&Ox3 Results & Data Vital Signs (Past 12 Hours) Vital Signs Temp Pulse Resp BP Pulse Ox 02/01/19 11:19 36.7 C 94 H 18 138/73 99 02/01/19 11:11 93 H 18 91 02/01/19 11:08 95 H 91 02/01/19 10:19 92 H 93 02/01/19 10:00 94 H 95 02/01/19 09:00 106 H 20 96 02/01/19 07:29 105 H 20 93 02/01/19 07:28 36.6 C 107 H 22 129/76 77 L 02/01/19 06:06 92 02/01/19 03:01 36.7 C 102 H 18 133/68 95
[2019-02-01] MEDS ORDERED: GLUCAGON FOR INJ 1 MG VIAL SQ PRN (15:48)
[2019-02-01] MEDS ORDERED: CARBOHYDRATES FOR HYPOGLYCEMIA PO PRN (15:48)
[2019-02-01] MEDS ORDERED: GLUCOSE 40% GEL 15 GM TUBE PO PRN (15:48)
[2019-02-01] MEDS ORDERED: DEXTROSE 50% 50 ML SYRINGE IV PRN (15:48)
[2019-02-01] MEDS ORDERED: GLUCOSE 10 TABS/TUBE PO PRN (15:48)
[2019-02-01] MEDS ORDERED: POLYETHYLENE (MIRALAX) 17 GM PACK PO PRN (15:48)
--- NOTE | 2019-02-01 16:00 | Consultation ---
Date of Consultation February 01, 2019 Assessment & Plan (1) Acute respiratory failure with hypoxia: Patient with postoperative hypoxia likely related to atelectasis and morbid obesity. She has a long history of snoring and may also have a component of obstructive sleep apnea. She also does have a diagnosis of asthma and seems to have improved with her hypoxia after the addition of duo nebs and incentive spirometry. She is now weaned to room air -Continue duo nebs [id number] and as needed wheezing or shortness of breath -Check overnight pulse oximetry to see if will need nocturnal oxygen upon discharge -Continue aggressive incentive spirometry-reviewed with the patient today -Continue checking pulse ox routinely with vital signs -Encouraged weight loss (2) Rotator cuff tear arthropathy of left shoulder: Postoperative plan as per orthopedic surgery -Continue pain control with acetaminophen, IV Dilaudid as needed, and oxycodone/APAP as needed -Needs bowel regimen-added docusate 100 mg p.o. twice daily and MiraLAX 17 g once daily as needed (3) Hypothyroidism: There is no recent TSH in our laboratory system -Continue home dose of levothyroxine 150 mcg daily -Add TSH to morning labs today -Follow-up with PCP (4) HTN (hypertension): Blood pressures here are well controlled -Continue home HCTZ, lisinopril, and metoprolol succinate (5) Idiopathic peripheral neuropathy: Noted (6) Seasonal allergies: Continue nasal fluticasone, Claritin, and Singulair (7) Hyperlipidemia: Continue home simvastatin (8) Depression: Continue home venlafaxine (9) Diabetes mellitus, type 2: The patient was unaware of this diagnosis. Her preoperative hemoglobin A1c was 6.5% -Recommend starting on metformin upon discharge at 500 mg p.o. twice daily -Start Accu-Cheks with NovoLog supplemental insulin here -Consult diabetic nurse educator for counseling and to provide glucometer with teaching (10) GERD (gastroesophageal reflux disease): Continue ranitidine, pantoprazole (11) Urinary incontinence: Continue Vesicare upon return home (12) Fatty liver: Needs weight loss -Metformin will help with this (13) Chronic venous insufficiency: Has planned procedure with interventional cardiology for venous insufficiency (14) Obesity: BMI 50.1 -Highly recommended weight loss (15) Asthma: No wheezing or acute exacerbation currently, but was hypoxic earlier as above -Continue duo nebs [id number] -Return to home PRN albuterol inhaler as needed upon discharge -Continue Tahir (16) DVT prophylaxis: SCDs, ambulation Disposition-remain overnight for improved pain control Hospitalist service will continue to follow along-she may need nocturnal oxygen upon discharge depending on outcome of overnight oximetry test History of Present Illness Requesting Physician: Dr. Trevizo Reason for Consultation: Postop hypoxia Attending Physician: Raoul Trevizo MD History of Present Illness This patient is a 68-year-old female with a history of morbid obesity, OA, asthma, RA, TMJ, sciatica, GERD, HTN, HL, hypothyroidism who is here for a left rotator cuff repair that was performed on 01/31. After the procedure, she remained mildly hypoxic and was requiring 2 L of oxygen via nasal cannula. There is also a brief episode of right-sided chest pain that was felt to be musculoskeletal in nature and is now resolved. A repeat ECG performed by the anesthesiologist at that time was unchanged from prior. The patient has never required oxygen before. She is morbidly obese and says that her used to tell her that she snored all night long; she currently lives alone. She has never been tested for sleep apnea. After receiving duo nebs today and using her incentive spirometer, she has now been weaned off of oxygen and is on room air with adequate oxygenation. She denies any other symptoms at this time other than left-sided shoulder pain and constipation. Allergies Allergy/AdvReac Type Severity Reaction Status Date / Time codeine Allergy Mild RASH Verified 01/31/19 08:43 Sulfa (Sulfonamide Allergy Mild RASH Verified 01/31/19 08:43 Antibiotics) sulfamethoxazole Allergy Mild RASH Verified 01/31/19 08:43 trimethoprim Allergy Mild RASH Verified 01/31/19 08:43 Home Medications Home Medications Medication Instructions Recorded Confirmed Type albuterol sulfate HFA 90 2 puffs INH QID PRN 10/25/18 01/31/19 History mcg/actuation aerosol inhaler calcium carbonate 200 mg calcium 1,000 mg PO QAM tab 10/25/18 01/31/19 History (500 mg) chewable tablet geriatric multivit with iron and 1 tab PO QAM 10/25/18 01/31/19 History minerals tablet levothyroxine 200 mcg tablet 200 mcg PO QAM 10/25/18 01/31/19 History lisinopril 20 mg tablet 10 mg PO QAM 10/25/18 01/31/19 History loratadine 10 mg tablet 10 mg PO QAM 10/25/18 01/31/19 History mometasone 50 mcg/actuation nasal 2 sprays INTNAS DAILY 10/25/18 01/31/19 His tory spray montelukast 10 mg tablet 10 mg PO QPM 10/25/18 01/31/19 History omega-3 fatty acids 1,000 mg 1,000 mg PO QAM 10/25/18 01/31/19 History capsule omeprazole 20 mg capsule,delayed 20 mg PO QPM 10/25/18 01/31/19 History release ranitidine 150 mg tablet 150 mg PO HS 10/25/18 01/31/19 History simvastatin 40 mg tablet 40 mg PO HS 10/25/18 01/31/19 History sodium chloride 5 % eye ointment 1 appln OP HS 10/25/18 01/31/19 History venlafaxine ER 150 mg 150 mg PO QAM 10/25/18 01/31/19 History capsule,extended release 24 hr calcium carbonate [Tums] 200 mg PO QAM 01/28/19 01/31/19 History hydrochlorothiazide 25 mg PO QAM 01/28/19 01/31/19 History metoprolol succinate 25 mg PO QAM 01/28/19 01/31/19 History solifenacin [Vesicare] 5 mg PO QPM 01/28/19 01/31/19 History oxycodone-acetaminophen [Percocet] 1 - 2 tab PO Q46H PRN #30 tab 01/31/19 Rx Patient History Medical History Obesity HTN (hypertension) (Chronic) Hypothyroidism (Chronic) Idiopathic peripheral neuropathy (Chronic) Chronic venous insufficiency Depression Diabetes mellitus, type 2 diet controlled Fatty liver GERD (gastroesophageal reflux disease) History of left breast cancer s/p lumpectomy + tamoxifen x 5 years Hyperlipidemia Macular degeneration Osteoarthritis Seasonal allergies TMJ click Urinary incontinence Surgical History History of colonoscopy History of lumpectomy of left breast History of nasal surgery History of partial hysterectomy Family History Brother Family history of diabetes mellitus Social History Preferred Language: Irish Communication Ability: Effective Scrap Breaker Required: No Beliefs That Will Affect Care: None Current Living Situation: Alone Other Information That Helps Us Care for You: No Feels Safe at Home: Yes Safety Concerns: Feels Safe At This Time Smoking Status: Never smoker Do You Dip or Chew Tobacco: No Second Hand Exposure: No Hx Alcohol Use: No Hx Substance Use: No Review of Systems Review of Systems: All systems reviewed & are unremarkable except as noted in HPI & below Physical Exam Constitutional: WD/WN, vitals as above + morbidly obese Eyes: PERRL, conjunctivae normal, anicteric sclerae ENMT: external ear and nose normal, oropharynx normal Neck: trachea midline, no thyromegaly Respiratory: normal respiratory effort, lungs clear to auscultation Cardiovascular: RRR, no murmur, no edema Gastrointestinal (Abdomen): normal bowel sounds, soft, nontender, no hepatosplenomegaly Musculoskeletal: Extremities: + extremities abnormal to inspection (Left upper extremity in shoulder brace and sling with dressing in place clean dry and intact), no cyanosis and no clubbing Skin: no rashes, warm and dry + wound (Left distal anterior leg closed with OPTi foam in place) Neurologic: moves all extremities and awake; no focal motor deficits Psychiatric: A+Ox3, euthymic affect Results & Data Vital Signs (Past 12 Hours) Vital Signs Temp Pulse Resp BP Pulse Ox 02/01/19 15:25 36.9 C 98 H 20 137/80 96 02/01/19 13:18 93 02/01/19 11:19 36.7 C 94 H 18 138/73 99 02/01/19 11:11 93 H 18 91 02/01/19 11:08 95 H 91 02/01/19 10:19 92 H 93 02/01/19 10:00 94 H 95 02/01/19 09:00 106 H 20 96 02/01/19 07:29 105 H 20 93 02/01/19 07:28 36.6 C 107 H 22 129/76 77 L 02/01/19 06:06 92 Laboratory Results 02/01/19 02/01/19 02/01/19 Range/Units 12:09 09:15 09:15 WBC 9.85 (4.8-10.8) K/uL RBC 3.93 L (4.2-5.4) M/uL Hgb 12.0 (12.0-16.0) g/dL Hct 36.1 L (37-47) % MCV 91.9 (80-100) fL MCH 30.5 (25-34) pg MCHC 33.2 (32-36) g/dL RDW Std Deviation 43.1 (36.4-46.3) fL RDW Coeff of Shantelle 12.9 (11.5-14.5) % Plt Count 222 (130-400) K/uL MPV 9.1 (7.4-10.4) fL Immature Gran % (Auto) 0.2 % Neut % (Auto) 77.2 % Lymph % (Auto) 14.4 % [place] % (Auto) 8.1 % Eos % (Auto) 0.1 % Baso % (Auto) 0.0 % Immature Gran # (Auto) 0.02 (0.00-0.02) K/uL Neut # (Auto) 7.60 H (1.4-6.5) K/uL Lymph # (Auto) 1.42 (1.2-3.4) K/uL [place] # (Auto) 0.80 H (0.11-0.59) K/uL Eos # (Auto) 0.01 (0-0.5) K/uL Baso # (Auto) 0.00 (0-0.2) K/uL Sodium 139 (136-145) mmol/L Potassium 3.7 (3.5-5.1) mmol/L Chloride 106 (98-107) mmol/L Carbon Dioxide 29 (21-32) mmol/L Anion Gap 4.0 (3-11) BUN 12 (7-18) mg/dl Creatinine 0.79 (0.6-1.2) mg/dl Est Cr Clr Drug Dosing 88.2 ml/min Est GFR ( Amer) 90.4 Est GFR (Non-Af Amer) 78.0 BUN/Creatinine Ratio 14.8 (10-20) Glucose 140 H (70-99) mg/dl POC Glucose 122 H (70-99) Calcium 7.7 L D (8.5-10.1) mg/dl Total Bilirubin 0.3 (0.2-1) mg/dl AST 24 (15-37) U/L ALT 27 (12-78) U/L Alkaline Phosphatase 82 (45-117) U/L Total Protein 6.5 (6.4-8.2) gm/dl Albumin 2.9 L (3.4-5.0) gm/dl Globulin 3.6 (2.5-4.0) gm/dl Albumin/Globulin Ratio 0.8 L (0.9-2) 02/01/19 01/31/19 01/31/19 Range/Units 08:11 21:18 17:50 WBC (4.8-10.8) K/uL RBC (4.2-5.4) M/uL Hgb (12.0-16.0) g/dL Hct (37-47) % MCV (80-100) fL MCH (25-34) pg MCHC (32-36) g/dL RDW Std Deviation (36.4-46.3) fL RDW Coeff of Shantelle (11.5-14.5) % Plt Count (130-400) K/uL MPV (7.4-10.4) fL Immature Gran % (Auto) % Neut % (Auto) % Lymph % (Auto) % [place] % (Auto) % Eos % (Auto) % Baso % (Auto) % Immature Gran # (Auto) (0.00-0.02) K/uL Neut # (Auto) (1.4-6.5) K/uL Lymph # (Auto) (1.2-3.4) K/uL [place] # (Auto) (0.11-0.59) K/uL Eos # (Auto) (0-0.5) K/uL Baso # (Auto) (0-0.2) K/uL Sodium (136-145) mmol/L Potassium (3.5-5.1) mmol/L Chloride (98-107) mmol/L Carbon Dioxide (21-32) mmol/L Anion Gap (3-11) BUN (7-18) mg/dl Creatinine (0.6-1.2) mg/dl Est Cr Clr Drug Dosing ml/min Est GFR ( Amer) Est GFR (Non-Af Amer) BUN/Creatinine Ratio (10-20) Glucose (70-99) mg/dl POC Glucose 111 H 186 H 168 H (70-99) Calcium (8.5-10.1) mg/dl Total Bilirubin (0.2-1) mg/dl AST (15-37) U/L ALT (12-78) U/L Alkaline Phosphatase (45-117) U/L Total Protein (6.4-8.2) gm/dl Albumin (3.4-5.0) gm/dl Globulin (2.5-4.0) gm/dl Albumin/Globulin Ratio (0.9-2) Diagnostic Findings Chest x-ray image personally reviewed by me and agree with the following report: XR chest 1V portable CLINICAL HISTORY: Hypoxia. COMPARISON STUDY: Chest radiograph January 25, 2019. FINDINGS: There is no pneumothorax or pleural effusion. Linear bilateral opacities favor atelectasis. There is no evidence for pulmonary edema. Cardiac size is within normal limits. IMPRESSION: 1. No acute cardiopulmonary findings. 2. Linear bilateral opacities suggestive of atelectasis. PG Care Time/CCT Total # of Minutes Spent Total Time Spent with Patient: Total time spent is greater than 50% in coordination of care (as documented) at patient's floor/unit and/or counseling patient:
[2019-02-01] MEDS: DOCUSATE SODIUM 100 MG CAP PO SCH ×2 (16:30→21:10)
[2019-02-01] MEDS: INSULIN ASPART 100 UNITS/ML 3 ML PEN SC SCH ×2 (18:52→21:26)
[2019-02-01] MEDS: MONTELUKAST SODIUM 10 MG TABLET PO SCH (21:09)
[2019-02-01] MEDS: SIMVASTATIN 40 MG TAB PO SCH (21:10)
[2019-02-01] MEDS: PANTOprazole 40 MG TAB PO SCH (21:11)
[2019-02-01] MEDS: SODIUM CHLORIDE 5% (MURO) OP OINT 3.5 GM TUBE OP SCH (21:12)
[2019-02-02] MEDS: OXYCODONE/ACETAMINOPHEN 5mg/325mg TAB PO PRN ×3 (03:07→12:51)
[2019-02-02] MEDS: LEVOTHYROXINE SODIUM 150 MCG TABLET PO SCH (06:05)
--- NOTE | 2019-02-02 07:16 | Orthopedic Progress Note ---
Date of Service February 02, 2019 Assessment & Plan (1) Rotator cuff tear arthropathy of left shoulder: POD #2, Left shoulder RCR. No PT, may loosen sling to move elbow ONLY. Continue O2 protocol, improving. Encourage ambulation, improving. Pain control. As per medicine recommendations. Subjective POD #2, Still has not walked more than to the bathroom, has been improving per nursing, occas needs O2. States she lives alone but not interested in rehab. Denies, SOB, CP, N/V. Cleared by anesthesia post op through EKG Continues nebs as needed. Physical Exam Physical Exam: Left shoulder dressings c/d/i, no drainage. Fingers mobile, sling in tact. Patient sitting comfortably in chair. O2 93 on room air. Results & Data Vital Signs (Past 12 Hours) Vital Signs Temp Pulse Pulse Pulse Pulse Resp BP 02/02/19 05:41 111 H 02/02/19 00:52 106 H 144/74 H 02/01/19 23:42 36.8 C 107 H 18 164/82 H 02/01/19 19:35 85 20 Pulse Ox Pulse Ox 02/02/19 05:41 93 02/02/19 00:52 02/01/19 23:42 87 L 02/01/19 19:35 94
[2019-02-02] MEDS: ALBUT/IPRATROP 3MG/0.5MG NEB 3 ML VIAL NEB SCH ×2 (07:36→14:39)
[2019-02-02] MEDS: INSULIN ASPART 100 UNITS/ML 3 ML PEN SC SCH ×2 (08:35→12:46)
[2019-02-02] MEDS: FLUTICASONE PROPIONATE NA SPR 16 GM BTL NAE SCH (08:36)
[2019-02-02] MEDS: LORATADINE 10 MG TAB PO SCH (08:36)
[2019-02-02] MEDS: CEROVITE ADV FORMULA TAB PO SCH (08:36)
[2019-02-02] MEDS: hydroCHLOROthiazide 25 MG TAB PO SCH (08:36)
[2019-02-02] MEDS: METOPROLOL SUCC 25MG EXT REL TAB PO SCH (08:36)
[2019-02-02] MEDS: VENLAFAXINE HCL XR 150 MG CAPXR PO SCH (08:37)
[2019-02-02] MEDS: LISINOPRIL 10 MG TAB PO SCH (08:37)
[2019-02-02] MEDS: CALCIUM CARBONATE 500 MG CHEWABLE TAB PO SCH ×2 (08:37→08:38)
[2019-02-02] MEDS: DOCUSATE SODIUM 100 MG CAP PO SCH (08:38)
--- NOTE | 2019-02-02 13:54 | Hospitalist Progress Note ---
Date of Service February 02, 2019 Assessment & Plan (1) Acute respiratory failure with hypoxia: Patient with postoperative hypoxia likely related to atelectasis and morbid obesity. She has a long history of snoring and now also diagnosed with obstructive sleep apnea based on overnight oximetry study done here She also does have a diagnosis of asthma and seems to have improved with her hypoxia after the addition of duo nebs and incentive spirometry. She is now weaned to room air during the day and did not need O2 with ambulation, however needs 2LNC qhs Home O2 is to be delivered after discharge today -Continue aggressive incentive spirometry-reviewed with the patient today -Encouraged weight loss (2) Rotator cuff tear arthropathy of left shoulder: Postoperative plan as per orthopedic surgery -Continue pain control with acetaminophen, and oxycodone/APAP as needed -continue bowel regimen- docusate 100 mg p.o. twice daily and MiraLAX 17 g once daily as needed (3) Hypothyroidism: TSH here normal -Continue home dose of levothyroxine 150 mcg daily (4) HTN (hypertension): Blood pressures here are well controlled -Continue home HCTZ, lisinopril, and metoprolol succinate (5) Idiopathic peripheral neuropathy: Noted (6) Seasonal allergies: Continue nasal fluticasone, Claritin, and Singulair (7) Hyperlipidemia: Continue home simvastatin (8) Depression: Continue home venlafaxine (9) Diabetes mellitus, type 2: The patient was unaware of this diagnosis. Her preoperative hemoglobin A1c was 6.5% -Recommend starting on metformin upon discharge at 500 mg p.o. twice daily -Consulted diabetic nurse educator for counseling and to provide glucometer with teaching (10) GERD (gastroesophageal reflux disease): Continue ranitidine, pantoprazole (11) Urinary incontinence: Continue Vesicare upon return home (12) Fatty liver: Needs weight loss -Metformin will help with this (13) Chronic venous insufficiency: Has planned procedure with interventional cardiology for venous insufficiency (14) Obesity: BMI 50.1 -Highly recommended weight loss (15) Asthma: No wheezing or acute exacerbation currently, but was hypoxic earlier as above Received duo nebs [id number] and had improvement in oxygenation -Return to home PRN albuterol inhaler as needed upon discharge -Continue Singulair (16) [place]TON (obstructive sleep apnea): as above, failed overnight POx study -ordered home O2 2LNC qhs and needs CPAP ordered as outpt -f/u with Sleep Medicine after discharge (17) DVT prophylaxis: SCDs, ambulation Disposition-stable from medical perspective for discharge Subjective Still having pain in left shoulder. Was up all night with urinary urgency as she does not have her Vesicare here as is non-formulary. Otherwise has no CP, no SOB. Mildly tachycardic today but is sinus and likely from pain. Still constipated. Overnight oximetry reviewed and does indeed need home nocturnal O2, but does not qualify for daytime O2 Review of Systems Review of Systems: All systems reviewed & are unremarkable except as noted in HPI & below Physical Exam Constitutional: WD/WN, vitals as above + morbidly obese Eyes: PERRL, conjunctivae normal, anicteric sclerae Neck: trachea midline, no thyromegaly Respiratory: normal respiratory effort, lungs clear to auscultation Cardiovascular: RRR, no murmur, no edema Gastrointestinal (Abdomen): normal bowel sounds, soft, nontender, no hepatosplenomegaly Musculoskeletal: Extremities: + extremities abnormal to inspection (Left upper extremity in shoulder brace and sling with dressing in place clean dry and intact), no cyanosis and no clubbing Skin: no rashes, warm and dry + wound (Left distal anterior leg closed with OPTi foam in place) Neurologic: moves all extremities and awake; no focal motor deficits Psychiatric: A+Ox3, euthymic affect Results & Data Vital Signs (Past 12 Hours) Vital Signs Temp Pulse Pulse Pulse Pulse Pulse Pulse 02/02/19 11:49 120 H 116 H 110 H 02/02/19 11:48 115 H 02/02/19 08:10 36.5 C 85 106 H 93 H 02/02/19 07:56 02/02/19 07:36 93 H 02/02/19 07:00 36.5 C 101 H 02/02/19 05:41 111 H Pulse Resp Resp Resp Resp BP Pulse Ox 02/02/19 11:49 18 16 16 02/02/19 11:48 18 90 02/02/19 08:10 111 H 18 155/76 H 94 02/02/19 07:56 155/76 H 02/02/19 07:36 18 94 02/02/19 07:00 20 170/97 H 93 02/02/19 05:41 Pulse Ox Pulse Ox Pulse Ox 02/02/19 11:49 89 L 90 93 02/02/19 11:48 02/02/19 08:10 02/02/19 07:56 02/02/19 07:36 02/02/19 07:00 02/02/19 05:41 93 Laboratory Results 02/02/19 02/02/19 02/02/19 Range/Units 12:03 08:14 06:12 POC Glucose 117 H 119 H (70-99) TSH 2.890 (0.300-4.500) uIu/ml 02/01/19 02/01/19 Range/Units 20:57 17:34 POC Glucose 126 H 114 H (70-99) TSH (0.300-4.500) uIu/ml PG Care Time/CCT Total # of Minutes Spent Total Time Spent with Patient: Total time spent is greater than 50% in coordina tion of care (as documented) at patient's floor/unit and/or counseling patient:
--- NOTE | 2019-02-16 02:01 | Discharge Summary ---
DATE OF ADMISSION: 01/31/2019 DATE OF DISCHARGE: 02/02/2019 HISTORY OF PRESENT ILLNESS: This is a 68-year-old female patient of Dr. Trevizo'cely who sustained a fall at home and injured her left shoulder. She failed conservative treatment. An MRI confirmed she had a rotator cuff tear, impingement and bursitis. The patient elected to proceed with a left shoulder arthroscopic rotator cuff repair and subacromial decompression. PAST MEDICAL HISTORY: Hypertension, hypercholesterolemia, irregular heartbeat, asthma, hypothyroidism, rheumatoid arthritis, TMJ, sciatica, acid reflux, and obesity. POSTOPERATIVE COURSE: The patient underwent a right shoulder RCR. She had some hypoxia postoperatively in the PACU. Anesthesiology ordered an EKG which was negative. She was admitted overnight for observation. She was put on oxygen protocol. Medicine put her on nebulizers regularly. She eventually over the next 48 hours was able to wean on room air during the day. She is able to ambulate without any shortness of breath, but she did still require oxygen at night. On postoperative day #2, she was discharged. She was ordered home oxygen for nighttime and educated on aggressive spirometry. The patient was stable on room air during the day and was discharged on postoperative day #2. PHYSICAL EXAMINATION: On discharge, left shoulder portals were clean, dry and intact. There was no redness or drainage. Sutures are intact and skin edges were approximated well. Elbow was mobile. Fingers were mobile. Sling was intact. DIAGNOSES: Status post left shoulder arthroscopic rotator cuff repair, subacromial decompression, distal clavicle excision. She also had postoperative hypoxia which was resolved with regular use of nebulizers. She was able to wean off of oxygen during the day, but she will continue oxygen at night when she goes home and this has been ordered by medicine. She also has a history of hypertension, hypercholesterolemia, irregular heartbeat, asthma, hypothyroidism, rheumatoid arthritis, TMJ, sciatica, acid reflux, and obesity. PLAN: The patient was discharged home. No physical therapy. She will continue her preadmission medications with the addition of pain medications and home oxygen at night as needed. She will follow up with her family physician for her oxygen need. The patient will follow up with Dr. Trevizo as scheduled as an outpatient. EMETERIO
== END 2019-02-02 15:19 | disposition home or self-care (01) | DRG 511 ==
LOC: ASU 08:19 → 3E 16:41

== ENCOUNTER 2020-12-10 08:55 | Observation (INO) ==
--- NOTE | 2020-12-05 08:42 | Anesthesiology Consultation ---
Date of Service December 05, 2020 Assessment & Plan (1) Encounter for pre-operative examination: Chart Review Chart Review: Acceptable Risk for Surgery and Patient NOT seen in Pre Admission Testing - Check BSG AM DOS Per nursing assessment November 29, 2020, patient denies any recent travel. No known Covid infection past 90 days. No known Covid positive contacts or Covid related symptoms. Covid test 12/04/20= negative Left shoulder arthroscopy with RCR; distal clavicle excision 01/26/2019 = done under [facility] with grade 2 view with MAC #3. ETT #7.5. History Surgery Operation Date: 12/10/20 10:05 Proposed Procedures p Left Breast Lumpectomy with [place] Lymph Node Biopsy(Left) - Philip March MD, FACS Height/Weight Height: 5 ft 4 in Weight: 127.006 kg Allergies Allergy/AdvReac Type Severity Reaction Status Date / Time codeine Allergy Mild RASH Verified 11/29/20 09:18 Sulfa (Sulfonamide Allergy Mild RASH Verified 11/29/20 09:18 Antibiotics) sulfamethoxazole Allergy Mild RASH Verified 11/29/20 09:18 trimethoprim Allergy Mild RASH Verified 11/29/20 09:18 Medications Home Medications Medication Instructions Recorded Confirmed Last Taken albuterol sulfate 90 mcg/actuation 2 puffs INH QID PRN 10/25/18 11/29/20 01/31/19 07:30 aerosol inhaler omega-3 fatty acids 1,000 mg 1,000 mg PO QAM 10/25/18 11/29/20 01/24/19 08:00 capsule sodium chloride 5 % eye ointment 1 appln OP HS 10/25/18 11/29/20 01/30/19 23:00 loratadine 10 mg tablet 10 mg PO QAM #90 tab 02/05/19 11/29/20 Unknown mometasone 50 mcg/actuation nasal 2 sprays INTNAS DAILY #17 gm 02/05/19 11/29/20 Unknown spray ksiwnlcm-igm-uhdrb acid 0.4 1 tab PO QAM 02/05/19 11/29/20 Unknown mg-lycopene 300 mcg-lutein 250 mcg tablet levothyroxine 150 mcg tablet 150 mcg PO DAILY #90 tab 01/19/20 11/29/20 Unknown omeprazole 20 mg capsule,delayed 40 mg PO DAILY #180 cap 04/09/20 11/29/20 Unknown release simvastatin 40 mg tablet 40 mg PO HS #90 tab 05/25/20 11/29/20 Unknown blood sugar diagnostic #100 ea 07/06/20 11/29/20 Unknown lancets #200 ea 07/06/20 11/29/20 Unknown metformin 500 mg tablet 250 mg PO BID #90 tab 07/06/20 11/29/20 Unknown hydrochlorothiazide 25 mg tablet 25 mg PO QAM #90 tab 08/22/20 11/29/20 Unknown lisinopril 20 mg tablet 10 mg PO DAILY #45 tab 08/22/20 11/29/20 Unknown metoprolol succinate 25 mg 25 mg PO DAILY #90 tab 08/22/20 11/29/20 Unknown tablet,extended release 24 hr solifenacin 5 mg tablet 5 mg PO DAILY #90 tab 09/21/20 11/29/20 Unknown lorazepam 0.5 mg tablet 0.5 mg PO BID PRN #25 tab 10/10/20 11/29/20 Unknown montelukast 10 mg tablet 10 mg PO QPM #90 tab 10/31/20 11/29/20 Unknown venlafaxine 150 mg 150 mg PO DAILY #90 cap 10/31/20 11/29/20 Unknown capsule,extended release 24 hr calcium 500 mg PO QAM 11/29/20 11/29/20 Unknown Past Medical History Medical History Asthma HAS NOT USED RESCUE INHALER FOR A WHILE Depression Fatty liver GERD (gastroesophageal reflux disease) History of left breast cancer s/p lumpectomy + tamoxifen x 5 years Hypercholesterolemia Hypertension Hypothyroidism Idiopathic peripheral neuropathy Macular degeneration MILTON (obstructive sleep apnea) Per records - not on CPAP Osteoarthritis Type 2 diabetes mellitus Urge incontinence of urine Past Family History Family History Brother Hodgkins disease Diabetes Family history of diabetes mellitus Cancer Father Heart disease Melanoma Myocardial infarction Acute Mother Hepatitis Hepatic cirrhosis Sister Hypertension Other No family history of adverse response to anesthesia Denies family history of Ovarian cancer Prostate cancer Breast cancer Colorectal cancer Past Surgical History Surgical History History of colonoscopy History of lumpectomy of left breast History of nasal surgery History of partial hysterectomy History of tooth extraction S/P arthroscopy of left shoulder Rotator cuff repair Social History Smoking Status: Never smoker Hx Alcohol Use: Yes alcohol intake frequency: holidays/special occasions only Hx Substance Use: No substance use type: does not use Lab Results Anesthesia Preop Results Results Anesthesia Widget: WBC 7.71 K/uL (4.8-10.8) 12/04/20 Hgb 13.8 g/dL (12.0-16.0) 12/04/20 Hct 41.0 % (37-47) 12/04/20 Plt 312 K/uL (130-400) 12/04/20 Na 137 mmol/L (136-145) 12/04/20 K 3.8 mmol/L (3.5-5.1) 12/04/20 Cl 101 mmol/L (98-107) 12/04/20 CO2 32 mmol/L (21-32) 12/04/20 BUN 17 mg/dl (7-18) 12/04/20 Creat 0.96 mg/dl (0.6-1.2) 12/04/20 Glucose Level 127 mg/dl (70-99) H 12/04/20 Testing Laboratory Results 07/18/20= HGB A1C: 6.4 Electrocardiogram Date: 12/04/20 Findings: + NSR @ (99bpm ) Left axis deviation. Minimal voltage criteria for LVH, may be normal variant. Poor R wave progression, consider anterior TN vs. lead placement vs. LVH. Nonspecific ST and T wave abnormality. (Anterior infarct dating back to 2018 when patient had exercise ECHO- see below). (EKG does have significant artifact) Stress Test Date: 12/24/17 Type: exercise (ECHO) Negative exercise stress echocardiogram and EKG for ischemia at >100% MPHR. No exercise-induced chest pain. Baseline echocardiogram notes normal LV function. LVEF 55-60%. Baseline EKG shows NSR with old anterior TN. Mild concentric LVH. Mild TR.
--- NOTE | 2020-12-10 05:25 | History & Physical Bridge Note ---
Date of Service December 10, 2020 History & Physical Bridge Note I have examined the patient, reviewed the History & Physical and in the interval since the performance of the History & Physical I have noted the following changes of clinical significance: no changes noted
[~2020-12-10 08:55] MED LIST changes: -CEFAZOLIN 3000MG 65 ML IV SCH; -DEXAMETHASONE SOD INJ 4 MG/ML VIAL ONE; -EPINEPHrine INJ 1 MG/ML AMP ONE; -LIDOCAINE HCL 2% 2 ML VIAL/AMP(20MG/ML) INFIL ONE; -MIDAZOLAM HCL 1 MG/ML 2ML VIAL ONE; -PROPOFOL IV EMULSION 10 MG/ML 20 ML VIAL IV ONE; -ROPIVACAINE 0.5% 5 MG/ML 30 ML VIAL ONE; -SUCCINYLCHOLINE CHLORIDE 20 MG/ML 10 ML VIAL ONE; -fentaNYL citrate 100 MCG/2 ML VIAL ONE
[2020-12-10] MEDS ORDERED: PROPOFOL IV EMULSION 10 MG/ML 20 ML VIAL IV ONE ×2 (09:45→12:02)
[2020-12-10] MEDS ORDERED: ONDANSETRON INJ 2 MG/ML 2 ML VIAL ONE ×2 (09:45→12:01)
[2020-12-10] MEDS ORDERED: LIDOCAINE HCL 2% 2 ML VIAL/AMP(20MG/ML) INFIL ONE (09:45)
[2020-12-10] MEDS ORDERED: DEXAMETHASONE SOD INJ 4 MG/ML VIAL ONE (09:45)
[2020-12-10] MEDS ORDERED: fentaNYL citrate 100 MCG/2 ML VIAL ONE (09:45)
[2020-12-10] MEDS ORDERED: METHYLENE BLUE 0.5% 10 ML VIAL ONE (10:44)
[2020-12-10] MEDS ORDERED: BUPIVACAINE 0.5 % 5 MG/1 ML MPF 30ML VIAL ONE (10:44)
[2020-12-10] MEDS: ceFAZolin 2000MG 2,000 MG/15 ML SYR IV SCH ×2 (11:30→12:48)
[2020-12-10] MEDS ORDERED: ePHEDrine sulfate 50 MG/ML AMP IV PRN (12:01)
[2020-12-10] MEDS ORDERED: ATROPINE SULFATE 0.1 MG/ML 10ML SYR IV PRN (12:01)
[2020-12-10] MEDS ORDERED: ONDANSETRON INJ 2 MG/ML 2 ML VIAL IV PRN ×3 (12:01→15:33)
[2020-12-10] MEDS ORDERED: SUCCINYLCHOLINE 100MG/5ML SYR IV ONE (12:02)
[2020-12-10] MEDS ORDERED: PHENYLEPHRINE 100MCG/ML 5ML SYR ONE (12:06)
[2020-12-10] MEDS ORDERED: ePHEDrine sulfate 50 MG/ML AMP ONE (12:06)
[2020-12-10] MEDS ORDERED: ceFAZolin 1000MG 1,000 MG/7.5 ML SYR IV ONE (12:28)
[2020-12-10] MEDS ORDERED: ACETAMINOPHEN 1,000 MG/100 ML VIAL IV ONE (12:58)
[2020-12-10] MEDS ORDERED: PROMETHAZINE HCL 12.5 MG in SODIUM CHLORIDE 0.9% 50 ML IV PRN (12:58)
--- NOTE | 2020-12-10 12:58 | Post Operative Brief Note ---
PG Immediate Post Op with CF Date of Surgery December 10, 2020 Pre & Post Diagnosis Operation Date: 12/10/20 10:25 Pre-Op Diagnosis: Ductal Carcinoma in SITU (DCIS) of Left Breast Post-Op Diagnosis: Ductal Carcinoma in SITU (DCIS) of Left Breast I identified the patient and participated in the time-out.: Yes Procedure Operation Date: 12/10/20 10:25 Actual Procedures p Left Breast Lumpectomy with left sentinel node biopsy using Bethanie overnight houseperson and neoprobe(Left) - Philip March MD, FACS Surgeon Philip March MD, FACS Dye Reel Operator Andres Downs Estimated Blood Loss 15 Findings Consistent with Post-Op Diagnosis Specimens Specimen Description: A. left sentinel lymph node B. Left breast tissue long silk lateral, short silk medial, plain suture anterior, methylene blue deep/posterior C. Additional left breast tissue deep/posterior long silk lateral, short silk medial, methylene blue new deep/posterior margin
[2020-12-10] MEDS ORDERED: traMADol HCL 50 MG TABLET PO PRN (13:00)
[2020-12-10] MEDS ORDERED: SODIUM CHLORIDE 0.9% 1000ML 1,000 ML IV SCH (13:00)
[2020-12-10] MEDS ORDERED: ALBUTEROL HFA INHALER 8.5 GM ONE (13:14)
[2020-12-10] MEDS ORDERED: ACETAMINOPHEN 1000 MG/100 ML IV IV ONE (13:34)
[2020-12-10] MEDS: fentaNYL citrate 100 MCG/2 ML VIAL IV PRN ×2 (13:49→13:59)
[2020-12-10] MEDS ORDERED: METOPROLOL TARTRATE 1 MG/ML VIAL IV ONE (14:09)
[2020-12-10] MEDS ORDERED: METOPROLOL TARTRATE 1 MG/ML VIAL IV STA (14:09)
--- NOTE | 2020-12-10 15:09 | Anesthesiology Progress Note ---
Date of Service December 10, 2020 Anesthesia Post Procedure Vital Signs Vital Signs: Temp Pulse Pulse Resp BP BP Pulse Ox 12/10/20 14:35 36.9 C 82 19 131/74 98 12/10/20 14:25 91 H 16 146/78 H 96 12/10/20 14:15 89 16 130/68 96 12/10/20 14:14 100 H 163/84 H 12/10/20 14:05 102 H 15 146/78 H 82 L 12/10/20 13:55 100 H 16 128/67 96 12/10/20 13:45 98 H 20 134/66 95 12/10/20 13:35 100 H 20 153/81 H 100 12/10/20 13:25 97 H 22 161/80 H 100 12/10/20 13:18 36.7 C 96 H 21 140/85 94 12/10/20 09:53 36.9 C 104 H 18 141/77 H 94 Pain Intensity Left Breast: Pain Intensity: 3 Transfer of Care Handoff Completed per policy Notes Mental Status: alert / awake / arousable and participated in evaluation Patient Amnestic to Procedure: Yes Nausea / Vomiting: adequately controlled Pain: adequately controlled Airway Patency, RR, SpO2: stable & adequate BP & HR: stable & adequate Hydration State: stable & adequate Anesthetic Complications: no major complications apparent and Pt Satisfied with anesthetic care Notes: The patient is status post breast lumpectomy with Dr. March. The patient is morbidly obese with a history of obstructive sleep apnea. She does not wear a CPAP. The patient was noted in PACU to desaturate to the 70s when sleeping after only 50mcg IV fentanyl given in PACU. Dr. March agreed that due to the patient's comorbidities and need for adequate pain control overnight, the patient should be admitted for pain control and closer monitoring. The patient does not have anyone at home to help or watch her. The patient was agreeable. Continuous pulse oximetry and incentive spirometry were ordered.
[2020-12-10] MEDS ORDERED: ALBUTEROL HFA 8 GM INHALER INH PRN (15:33)
[2020-12-10] MEDS ORDERED: MoRPHine SULFATE 2 MG/ML CARP IV PRN (15:33)
[2020-12-10] MEDS ORDERED: LACTATED RINGER'S 1,000 ML IV SCH (15:33)
[2020-12-10] MEDS ORDERED: PROMETHAZINE HCL 25 MG in SODIUM CHLORIDE 0.9% 50 ML IV PRN (15:33)
[2020-12-10] MEDS ORDERED: DEXTROSE 50% 50 ML SYRINGE IV PRN (15:44)
[2020-12-10] MEDS ORDERED: GLUCOSE 10 TABS/TUBE PO PRN (15:44)
[2020-12-10] MEDS ORDERED: GLUCAGON FOR INJ 1 MG VIAL SQ PRN (15:44)
[2020-12-10] MEDS ORDERED: GLUCOSE 40% GEL 15 GM TUBE PO PRN (15:44)
[2020-12-10] MEDS ORDERED: CARBOHYDRATES FOR HYPOGLYCEMIA PO PRN (15:44)
--- NOTE | 2020-12-10 16:22 | Operative Report (OR) ---
DATE OF OPERATION: 12/10/2020 NAME OF OPERATION: Left lumpectomy with sentinel lymph node biopsy. PREOPERATIVE DIAGNOSIS: Ductal carcinoma in situ, left breast. POSTOPERATIVE DIAGNOSIS: Ductal carcinoma in situ, left breast. STAFF SURGEON: Philip March MD. POLYGRAPH TECHNICIAN: Nick Downs PA-C. ANESTHESIA: General. DESCRIPTION OF PROCEDURE: The patient was brought in the operating room and placed on the operating table in supine position. Her left breast and axilla were prepped and draped in usual fashion. 0.5% plain Marcaine was used to anesthetize the skin and subcutaneous tissue at both sites. Incision was made in the axilla, carrying dissection down very deep identifying 2 lymph nodes, one was sentinel node, the other was minimal activity, but in the area. These were both sent for permanent section. Additional tissue was also sent. At this point, a lumpectomy was performed, making incision in the lateral breast on the left, excising an eschar and then carrying dissection down deep using the KRISTEN marker taken relatively large segment of left breast tissue. It was marked as left breast tissue, long silk lateral, short silk medial, plain suture anterior, methylene blue deep/posterior. I then could feel what is felt to be a lump deep in the center of the specimen. I did take additional deep/posterior tissue with a long silk lateral, short silk medial, methylene blue, new deep/posterior margin. All deep tissue reapproximated using 2-0 plain suture. The skin reapproximated using 4-0 nylon suture. Skin in the breast reapproximated using subcuticular 4-0 Monocryl and Steri-Strips. Dressing applied and patient transferred to recovery room in stable condition. I attest to the content of the Intraoperative Record and any orders documented therein. Any exception s are noted below.
[2020-12-10] MEDS: traMADol HCL 50 MG TABLET PO PRN ×3 (16:23→21:14)
[2020-12-10] MEDS: INSULIN ASPART 100 UNITS/ML 3 ML PEN SC SCH ×2 (16:56→21:27)
--- NOTE | 2020-12-10 17:22 | Hospitalist Consultation ---
Date of Consultation December 10, 2020 Assessment & Plan (1) Hypoxemia: Post-operative. Already weaning down to 1L in the ASU. Likely MILTON unmasked by anesthesia & pain medication, worsened by post-operative atelectasis from pain. - Wean O2 as able - If she is back to room air in the morning, feel free to discharge prior to hospitalist rounding. If she is still on some O2, can get her up, have her move/walk/use IS. If still needs O2 at that point, can do some further work-up. (2) DCIS (ductal carcinoma in situ) of breast: S/p left lumpectomy with sentinel lymph node biopsy by Dr. March on 12/10. - Post-op care and follow-up per primary team (3) Asthma: Mild, intermittent. Do not feel this is playing much of a role in hypoxemia. - Continue home montelukast & loratadine - Albuterol PRN (4) Type 2 diabetes mellitus: A1c of 6.4% in 07/2020. - Hold metformin - Sliding scale insulin (5) Hypertension: BP today is 145/95. - Continue home meds (6) Hypothyroidism: - Continue home Synthroid (7) Hypercholesterolemia: - Continue home statin (8) Depression: - Continue home venlafaxine (9) GERD (gastroesophageal reflux disease): (10) DVT prophylaxis: SCDs - Low DVT risk per admission calculator History of Present Illness Attending Physician: Philip March MD, FACS History of Present Illness Very pleasant 70yo F w/ hx DM, HTN who presents as a semi-urgent medical consult for post-operative hypoxemia. I interviewed the patient in the ASU. She was alert and oriented. Still in some pain from the surgical site, but otherwise states she is at her baseline state of health. She reports that when she had a rotator cuff surgery, she now remembers she also had a period of low SpO2. Presently, she does not feel any particular shortness of breath and is somewhat surprised by the low oxygen levels when I mention them to her. Allergies Allergy/AdvReac Type Severity Reaction Status Date / Time codeine Allergy Mild RASH Verified 12/10/20 09:47 Sulfa (Sulfonamide Allergy Mild RASH Verified 12/10/20 09:47 Antibiotics) sulfamethoxazole Allergy Mild RASH Verified 12/10/20 09:47 trimethoprim Allergy Mild RASH Verified 12/10/20 09:47 Home Medications Medication Instructions Recorded Confirmed Type albuterol sulfate 90 mcg/actuation 2 puffs INH QID PRN 10/25/18 12/10/20 History aerosol inhaler omega-3 fatty acids 1,000 mg 1,000 mg PO QAM 10/25/18 12/10/20 History capsule sodium chloride 5 % eye ointment 1 appln OP HS 10/25/18 12/10/20 History loratadine 10 mg tablet 10 mg PO QAM #90 tab 02/05/19 12/10/20 Rx mometasone 50 mcg/actuation nasal 2 sprays INTNAS DAILY #17 gm 02/05/19 12/10/20 Rx spray zlwsfleb-hyy-yseof acid 0.4 1 tab PO QAM 02/05/19 12/10/20 History mg-lycopene 300 mcg-lutein 250 mcg tablet levothyroxine 150 mcg tablet 150 mcg PO DAILY #90 tab 01/19/20 12/10/20 Rx omeprazole 20 mg capsule,delayed 40 mg PO DAILY #180 cap 04/09/20 12/10/20 Rx release simvastatin 40 mg tablet 40 mg PO HS #90 tab 05/25/20 12/10/20 Rx blood sugar diagnostic #100 ea 07/06/20 11/29/20 Rx lancets #200 ea 07/06/20 11/29/20 Rx metformin 500 mg tablet 250 mg PO BID #90 tab 07/06/20 12/10/20 Rx hydrochlorothiazide 25 mg tablet 25 mg PO QAM #90 tab 08/22/20 12/10/20 Rx lisinopril 20 mg tablet 10 mg PO DAILY #45 tab 08/22/20 12/10/20 Rx metoprolol succinate 25 mg 25 mg PO DAILY #90 tab 08/22/20 12/10/20 Rx tablet,extended release 24 hr solifenacin 5 mg tablet 5 mg PO DAILY #90 tab 09/21/20 12/10/20 Rx montelukast 10 mg tablet 10 mg PO QPM #90 tab 10/31/20 12/10/20 Rx venlafaxine 150 mg 150 mg PO DAILY #90 cap 10/31/20 12/10/20 Rx capsule,extended release 24 hr calcium 500 mg PO QAM 11/29/20 12/10/20 History tramadol 50 - 100 mg PO Q6H #30 tab 12/10/20 Rx Patient History Medical History Asthma HAS NOT USED RESCUE INHALER FOR A WHILE Depression Fatty liver GERD (gastroesophageal reflux disease) History of left breast cancer s/p lumpectomy + tamoxifen x 5 years Hypercholesterolemia Hypertension Hypothyroidism Idiopathic peripheral neuropathy Macular degeneration MILTON (obstructive sleep apnea) Per records - not on CPAP Osteoarthritis Type 2 diabetes mellitus Urge incontinence of urine Surgical History History of colonoscopy History of lumpectomy of left breast History of nasal surgery History of partial hysterectomy History of tooth extraction S/P arthroscopy of left shoulder Rotator cuff repair S/P lumpectomy, left breast (12/10/20) Left Breast Lumpectomy with left sentinel node biopsy using Bethanie [employer] technical lead senior developer and neoprobe(Left) - Philip March MD, FACS Family History Brother Hodgkins disease Diabetes Family history of diabetes mellitus Cancer Father Heart disease Melanoma Myocardial infarction Acute Mother Hepatitis Hepatic cirrhosis Sister Hypertension Other No family history of adverse response to anesthesia Denies family history of Ovarian cancer Prostate cancer Breast cancer Colorectal cancer Social History Smoking Status: Never smoker Second Hand Exposure: No; Hx Alcohol Use: Yes Hx Substance Use: No Preferred Language: [place] Communication Ability: Effective Adult Literacy Instructor Required: No Beliefs That Will Affect Care: None marital status: / Current Living Situation: Alone current occupational status: retired Feels Safe at Home: Yes Dental Care, Regularly: Yes Seatbelt Use: always Assistive Devices: Glasses Review of Systems Review of Systems: All systems reviewed & are unremarkable except as noted in HPI & below Physical Exam Constitutional: WD/WN, vitals as above + overweight Eyes: EOM intact bilaterally; no conjunctival abnormality ENMT: external ear and nose normal, oropharynx normal Neck: trachea midline, no thyromegaly normal visual inspection Respiratory: normal respiratory effort, lungs clear to auscultation no respiratory distress Cardiovascular: RRR, no murmur, no edema Chest (Breasts): Breast: + abnormal inspection of breast (Left breast with bandaging) Gastrointestinal (Abdomen): Inspection/Auscultation: abdomen normal to inspection; abdomen not distended Musculoskeletal: no cyanosis or clubbing, extremities motor strength 5/5 Skin: no rashes, warm and dry Neurologic: moves all extremities and awake Psychiatric: Orientation: alert, oriented to person and cooperative Results & Data Results & Data ([facility]) Vital Signs (Past 12 Hours) Vital Signs Temp Pulse Pulse Resp BP BP Pulse Ox 12/10/20 16:30 89 18 146/93 H 98 12/10/20 16:00 83 18 154/81 H 98 12/10/20 15:30 36.9 C 85 16 126/74 98 12/10/20 14:50 83 18 129/74 97 12/10/20 14:35 36.9 C 82 19 131/74 98 12/10/20 14:25 91 H 16 146/78 H 96 12/10/20 14:15 89 16 130/68 96 12/10/20 14:14 100 H 163/84 H 12/10/20 14:05 102 H 15 146/78 H 82 L 12/10/20 13:55 100 H 16 128/67 96 12/10/20 13:45 98 H 20 134/66 95 12/10/20 13:35 100 H 20 153/81 H 100 12/10/20 13:25 97 H 22 161/80 H 100 12/10/20 13:18 36.7 C 96 H 21 140/85 94 12/10/20 09:53 36.9 C 104 H 18 141/77 H 94 PG Care Time/CCT Total # of Minutes Spent Total Time Spent with Patient: Total time spent is greater than 50% in coordination of care (as documented) at patient's floor/unit and/or counseling patient: Coding Level of Care Code 69849 Inpt Consult Level 4 Diagnoses Hypoxemia R09.02 DCIS (ductal carcinoma in situ) of breast D05.10 Asthma J45.909 Type 2 diabetes mellitus E11.9 Diabetes mellitus shelter insulin use: without termite control technician use Diabetes mellitus complication status: without complication Hypertension I10 Hypertension type: essential hypertension Hypothyroidism E03.8; E06.3 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 Hypercholesterolemia E78.00 Depression F33.41 Depression Type: major depressive disorder Major depression recurrence: recurrent Active/Remission status: in partial remission GERD (gastroesophageal reflux disease) K21.9 Esophagitis presence: without esophagitis DVT prophylaxis Z29.9 (1) Type 2 diabetes mellitus Diabetes mellitus shelter insulin use: without shelter use Diabetes mellitus complication status: without complication Qualified Code(s): E11.9 - Type 2 diabetes mellitus without complications (2) Hypertension Hypertension type: essential hypertension Qualified Code(s): I10 - Essential (primary) hypertension (3) Hypothyroidism 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
[2020-12-10] MEDS: ceFAZolin 1000MG 1,000 MG/7.5 ML SYR IV SCH (20:03)
[2020-12-10] MEDS ORDERED: MONTELUKAST SODIUM 10 MG TABLET PO SCH (21:00)
[2020-12-10] MEDS ORDERED: SIMVASTATIN 40 MG TAB PO SCH (21:00)
[2020-12-10] MEDS: ACETAMINOPHEN 325 MG TAB PO PRN (21:13)
[2020-12-11] MEDS: traMADol HCL 50 MG TABLET PO PRN ×3 (01:25→12:22)
[2020-12-11] MEDS: ACETAMINOPHEN 325 MG TAB PO PRN (02:42)
[2020-12-11] MEDS: ceFAZolin 1000MG 1,000 MG/7.5 ML SYR IV SCH ×2 (03:09→12:25)
--- NOTE | 2020-12-11 06:10 | Surgery Progress Note ---
Date of Service December 11, 2020 Assessment & Plan (1) Hypoxemia: Patient status post left lumpectomy with sentinel lymph node biopsy She is currently awake and alert in bed on 1 L of nasal cannula with O2 sat of 95% Her dressings are intact without significant drainage Plan for dressing change Would like to discharge her home if felt medically stable on room air, otherwise Patient may need home O2 which she does not currently utilize We will see how she does once she is up and around Admission and Anticipated Discharge Date Admission Date: December 10, 2020 Results & Data ([facility]) Vital Signs (Past 12 Hours) Vital Signs Temp Pulse Resp BP BP Pulse Ox 12/11/20 05:48 87 L 12/11/20 05:40 19 95 12/11/20 03:07 36.7 C 88 18 144/77 H 96 12/11/20 03:00 96 12/11/20 02:42 83 L 12/11/20 01:53 94 12/11/20 00:06 94 12/11/20 00:05 37.3 C 89 18 127/73 87 L 12/10/20 21:28 36.7 C 91 H 16 114/66 94 12/10/20 20:32 36.6 C 88 16 129/70 90 12/10/20 19:50 36.5 C 94 H 16 117/70 90 12/10/20 18:38 36.6 C 90 16 91/49 L 93 PG Care Time/CCT Total # of Minutes Spent Total Time Spent with Patient: Total time spent is greater than 50% in coordination of care (as documented) at patient's floor/unit and/or counseling patient: Coding Level of Care Code None Diagnoses Hypoxemia R09.02
[2020-12-11] MEDS ORDERED: LEVOTHYROXINE SODIUM 150 MCG TABLET PO SCH (06:30)
[2020-12-11 06:49] LABS: Estimated Average Glucose 134 mg/dl; Hemoglobin A1C 6.3 % (4.5-5.6)
[2020-12-11] MEDS ORDERED: VESICARE~ORDER AWAITING ACTION SCH (08:00)
[2020-12-11] MEDS ORDERED: lisinopril 10 MG TAB PO SCH (09:00)
[2020-12-11] MEDS ORDERED: hydroCHLOROthiazide 25 MG TAB PO SCH (09:00)
[2020-12-11] MEDS ORDERED: LORATADINE 10 MG TAB PO SCH (09:00)
[2020-12-11] MEDS ORDERED: METOPROLOL SUCC 25MG EXT REL TAB PO SCH (09:00)
[2020-12-11] MEDS ORDERED: VENLAFAXINE HCL XR 150 MG CAPXR PO SCH (09:00)
[2020-12-11] MEDS ORDERED: PANTOprazole 40 MG TAB PO SCH (09:00)
[2020-12-11] MEDS: INSULIN ASPART 100 UNITS/ML 3 ML PEN SC SCH ×2 (10:08→12:16)
--- NOTE | 2020-12-11 15:16 | Mammography Report ---
SPECIMEN LEFT BREAST: 12/10/2020 CLINICAL HISTORY: 70-year-old woman with a history of left breast DCIS presents at time of lumpectomy . Preoperative localization with Bethanie Public Relations Professional was performed 12/04/2020. COMPARISON: Comparison is made to exams dated: 12/04/2020 localization, 11/22/2020 stereotactic biopsy, 11/22/2020 mammogram, 11/12/2020 mammogram, 11/06/2020 mammogram, and 07/27/2019 mammogram - [facility]. FINDINGS: A radiograph was performed of the left breast surgical excision specimen, which demonstrate s the hourglass-shaped biopsy marker and Bethanie Public Relations Professional reflector within the tissue specimen. There is a tubular density near the biopsy marker representing postbiopsy hematoma. Residual punctate calcific ations noted between the Bethanie Public Relations Professional and postbiopsy hematoma, approximately E10 on the grid. IMPRESSION: SPECIMEN Left breast surgical specimen radiograph, as above. Shea Dempsey M.D. ay/:12/10/2020 14:30:04 Supervisor Of Officials: OR Technologist, [facility]
[2020-12-11] MEDS ORDERED: IBUPROFEN 600 MG TAB PO PRN (15:25)
--- NOTE | 2020-12-13 06:04 | Discharge Summary (DS) ---
PRINCIPAL DIAGNOSIS: Left breast cancer. PROCEDURE: The patient underwent left breast lumpectomy with sentinel lymph node biopsy. HISTORY OF PRESENT ILLNESS: The patient is a 70-year-old female with biopsy proven left breast cancer for lumpectomy. HOSPITAL COURSE: She was brought into the hospital on 12/10/2020 where she underwent left breast lumpectomy with sentinel lymph node biopsy. Postoperatively, she did have some problems with oxygenation and was kept in the hospital overnight. She did relatively well and was felt stable and back to her baseline the next day. To be followed in the surgical clinic within 1-2 weeks.
== END 2020-12-11 16:45 | disposition home health service (06) ==
LOC: ASU 08:55 → 3N 14:18 → INTOOBSV 14:18

== ENCOUNTER 2024-03-08 11:29 | Inpatient (IN) ==
--- NOTE | 2024-03-08 12:04 | Emergency Department Note ---
Impression & Plan AMS (altered mental status), Anemia, Hypokalemia, UTI (urinary tract infection) ED Provider Note NAME: SREEKANTH RAMIREZ AGE: 73 SEX: F : 1950 ARRIVES VIA: Walk-In INFORMANT: Patient ED PROVIDER(S): Sam Youssef DO CHIEF COMPLAINT: AMS and falls HPI: Patient is a 73-year-old female who presents to the ER following a fall. She notes that she feels unbalanced. She denies any headache or neck pain. No chest pain or shortness of breath. No nausea vomiting or diarrhea. No dysuria, urgency or frequency. No focal weakness in the arms or legs. Additional history obtained from sister who notes that patient was sitting outside her daughter's house at 2 AM waiting to babysit. She sat there for 3 hours. She has been much more confused recently. ADDITIONAL HISTORY OBTAINED: Per HPI Chronic Medical/Social Conditions Affecting Care: Per HPI PAST MEDICAL HISTORY:See Below PAST SURGICAL HISTORY:See Below FAMILY HISTORY:See Below SOCIAL HISTORY:See Below HOME MEDICATIONS:See Below ALLERGIES:See Below VITALS:See Below PHYSICAL EXAMINATION: GENERAL: Sitting up in bed, alert, well appearing, well nourished, no distress, non-toxic HEAD: NC/AT EYE EXAM: normal conjunctiva. PERRL and EOM's grossly intact. OROPHARYNX: no exudate, no erythema, lips, buccal mucosa, and tongue normal and mucous membranes are moist NECK: supple, no nuchal rigidity, no adenopathy, non-tender LUNGS: Clear to auscultation. Normal chest wall mechanics HEART: no murmurs, S1 normal and S2 normal ABDOMEN: abdomen soft, non-tender, normo-active bowel sounds, no masses, no rebound or guarding. UPPER EXTREMITIES: upper extremities are grossly normal. LOWER EXTREMITIES: No pitting edema. NEURO EXAM: Normal sensorium, cranial nerves II-XII intact, normal speech, no weakness of arms, no weakness of legs. No drift. Finger to nose intact. Gross sensation intact. MEDICAL DECISION MAKING: Patient is a 73-year-old female who presents to the ER for above-stated complaint. IV was established blood work was obtained. Labs show no significant leukocytosis and a mild anemia 11.9. BMP with mild hypokalemia 3.3. LFTs bilirubin was unremarkable. Troponin was negative. UA does suggest a UTI. CT of the head angios head and neck were negative. Patient was updated bedside. Discussed case with the hospitalist for further evaluation management treatment. She was given IV Rocephin. Consults/Care Managements Discussions: Per [facility] Triage Nursing notes reviewed. Limited review of prior medical records performed Vital Signs: reviewed and remarkable for no significant abnormalities Differential diagnosis: Differential diagnoses includes but is not limited to toxic, metabolic, infectious, traumatic, cardiac, neurologic, hematologic, psychiatric and inflammatory etiologies. ER treatment provided: See below Diagnostics interpreted by me include EKG and cardiac monitoring as listed below: -Cardiac Monitoring: An order was placed for continuous cardiac monitoring. The monitor shows a rate of 80 with sinus rhythm. -ECG: Sinus rate of 94 left axis no PVCs Qtc 450 -Laboratory studies:Interpreted by me as stated above in MDM and shown below. Imaging studies: Xrays: As interpreted by me:Portable AP upright 1 view chest shows no focal infiltrate CTs show: CT of the head and neck was negative per radiology Procedures:none Critical Care: None Past Med/Surg History Problem List (Updated 03/08/24 @ 18:12 by Sam Youssef DO) UTI (urinary tract infection) (Acute) Hypokalemia (Acute) Anemia (Acute) AMS (altered mental status) (Acute) Confusion Encounter for examination following treatment at hospital Acute sinusitis Lower extremity venous stasis Cellulitis of right leg Dysphagia Finger joint swelling Cellulitis of left lower extremity Elbow injury Cough Constipation Chest pressure 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) Urinary incontinence Postmenopausal Type 2 diabetes mellitus S/P lumpectomy, left breast (12/10/20) Left Breast Lumpectomy with left sentinel node biopsy using Bethanie grocery clerk checking and neoprobe(Left) - Philip March MD, FACS History of left breast cancer s/p lumpectomy + tamoxifen x 5 years Original Dx 1997 recurrence in 11/2020, taking tamoxifen currently Medical History Hx of falling reports recently falling x 2 and having to call ambulance to help get off of floor, no major injuries Cellulitis both lower legs Urinary incontinence Postmenopausal Allergic rhinitis Cervical somatic dysfunction Cranial somatic dysfunction Hypercholesterolemia Hypertension Hypothyroidism Idiopathic peripheral neuropathy Obesity MILTON (obstructive sleep apnea) Per records - not on CPAP Asthma HAS NOT USED RESCUE INHALER FOR A WHILE Macular degeneration Osteoarthritis Fatty liver GERD (gastroesophageal reflux disease) History of left breast cancer s/p lumpectomy + tamoxifen x 5 years Original Dx 1997 recurrence in 11/2020, taking tamoxifen currently Depression Chronic venous insufficiency Type 2 diabetes mellitus Bilateral lower extremity edema Surgical History S/P lumpectomy, left breast (12/10/20) Left Breast Lumpectomy with left sentinel node biopsy using Bethanie grocery clerk checking and neoprobe(Left) - Philip March MD, FACS History of tooth extraction S/P arthroscopy of left shoulder Rotator cuff repair History of nasal surgery History of partial hysterectomy History of colonoscopy History of lumpectomy of left breast x 2 Family History Brother Diabetes Non-Hodgkins lymphoma Waldenstrom's disease Father , 80yo Heart disease Melanoma Myocardial infarction Acute Diabetes Mother , 59yo Hepatitis Hepatic cirrhosis Sister No problems noted. Sister Fibromyalgia Arthritis Daughter No problems noted. Other No family history of adverse response to anesthesia Denies family history of Ovarian cancer Prostate cancer Breast cancer Colorectal cancer Social History Smoking Status: Never smoker Second Hand Exposure: No; Do You Dip or Chew Tobacco: No; Hx Alcohol Use: No Hx Substance Use: No Preferred Language: Urdu Communication Ability: Effective Visual Impairment: Limited Hearing Ability: Normal Commercial Interior Designer Required: No Beliefs That Will Affect Care: None marital status: / Current Living Situation: Alone current occupational status: retired How many Children do You have: 1 Feels Safe at Home: Yes Childhood Exposure to Second-Hand Smoke: No Diet: regular caffeine: Yes (Soda) during the past year weight has: remained stable Dental Care, Regularly: Yes Physical Activity Frequency: 1-2 Times per Week Seatbelt Use: always Sunscreen Use: No Assistive Devices: Glasses Allergies Allergies Allergy/AdvReac Type Severity Reaction Status Date / Time codeine Allergy Mild RASH Verified 03/08/24 16:34 Sulfa (Sulfonamide Allergy Mild RASH Verified 03/08/24 16:34 Antibiotics) sulfamethoxazole Allergy Mild RASH Verified 03/08/24 16:34 trimethoprim Allergy Mild RASH Verified 03/08/24 16:34 Home Meds Home Medications Medication Instructions Recorded Confirmed ibvkvbxl-fux-vfcjh acid 0.4 1 tab PO QAM 02/05/19 03/08/24 mg-lycopene 300 mcg-lutein 250 mcg tablet (Centrum Silver) omega 4-qkb-the-fish oil 1,000 mg 1 cap PO QAM 11/18/23 03/08/24 (120 mg-180 mg) capsule (Fish Oil) lisinopril 20 mg tablet 10 mg PO QAM 12/04/23 03/08/24 metoprolol succinate 25 mg 25 mg PO QAM 12/04/23 03/08/24 tablet,extended release 24 hr mometasone 50 mcg/actuation nasal 2 spray intranasal DAILY 12/04/23 03/08/24 spray solifenacin 10 mg tablet (Vesicare) 10 mg PO QPM 12/04/23 03/08/24 tamoxifen 20 mg tablet 20 mg PO QAM 12/04/23 03/08/24 venlafaxine 150 mg 150 mg PO QAM 12/04/23 03/08/24 capsule,extended release 24 hr (Effexor XR) calcium carbonate (Tums Ultra) 400 mg PO DAILY 03/08/24 03/08/24 sodium chloride 5 % eye ointment 1 applic ophthalmic (eye) DAILY 03/08/24 03/08/24 (Iftikhar 128) vitamin E 268 mg (400 unit) capsule 268 mg PO DAILY 03/08/24 03/08/24 Previous Rx's Medication Instructions Recorded loratadine 10 mg tablet (Claritin) 10 mg PO QAM #90 tabs 10/01/21 lancing device with lancets kit #1 ea 01/14/22 (Accu-Chek FastClix Lancing Device kit) lancets (Accu-Chek Fastclix Lancet #200 ea 02/03/22 Drum) albuterol sulfate 90 mcg/actuation 2 puff inhalation QID PRN sob #18 02/16/23 aerosol inhaler (Ventolin HFA) grams blood sugar diagnostic (Accu-Chek #100 ea 04/21/23 Guide test strips) metformin 500 mg tablet 250 mg (1/2 x 500 mg) PO BID #90 08/24/23 tabs omeprazole 20 mg capsule,delayed 40 mg (2 x 20 mg) PO DAILY #180 09/22/23 release caps montelukast 10 mg tablet 10 mg PO QPM #90 tabs 10/19/23 (Singulair) hydrochlorothiazide 25 mg tablet 25 mg PO QAM #90 tabs 11/16/23 simvastatin 40 mg tablet (Zocor) 40 mg PO HS hypercholesterolemia 11/16/23 #90 tabs tirzepatide 2.5 mg/0.5 mL 2.5 mg (0.5 mL) subcut Q7D #2 mL 11/30/23 subcutaneous pen injector (Rupert) levothyroxine 200 mcg tablet 200 mcg PO QAM #90 tabs 02/16/24 Results & Data (ED) Vital Signs Vital Signs - 24 hr 03/08/24 11:40 03/08/24 12:30 03/08/24 14:24 Temperature 36.4 C L Temperature Source Temporal Artery Scan Pulse Rate 79 91 H 95 H Respiratory Rate 20 20 22 Respiratory Effort / Characteristics Non-Labored Spontaneous Respiratory Depth Normal Blood Pressure 136/75 143/71 H 142/82 H Blood Pressure Mean 95 113 102 Pulse Oximetry 96 94 95 Oxygen Delivery Method Room Air Room Air Room Air Sepsis Recent Fever Within 48 Hours No Sepsis New/Unexplained Change in Mental Status No Sepsis Action Taken by Nursing No Action Required Laboratory Data 03/08/24 11:59 03/08/24 11:59 Lab Results 03/08/24 03/08/24 Range/Units 11:59 Unknown WBC 7.76 (4.8-10.8) K/ul RBC 4.03 L (4.20-5.40) M/uL Hgb 11.9 L (12.0-16.0) g/dl Hct 36.1 L (37.0-47.0) % MCV 89.6 (80.0-100.0) fL MCH 29.5 (25.0-34.0) pg MCHC 33.0 (32.0-36.0) g/dL RDW Std Deviation 41.6 (36.4-46.3) fL RDW Coeff of Shantelle 12.6 (11.5-14.5) % Plt Count 285 (130-400) K/uL MPV 9.2 L (9.4-12.4) fL Immature Gran % (Auto) 0.3 % Neut % (Auto) 64.4 % Lymph % (Auto) 18.2 % [place] % (Auto) 9.8 % Eos % (Auto) 7.0 % Baso % (Auto) 0.3 % Neut # (Auto) 5.01 (1.40-6.50) K/uL Lymph # (Auto) 1.41 (1.20-3.40) K/uL [place] # (Auto) 0.76 H (0.11-0.59) K/uL Eos # (Auto) 0.54 H (0.00-0.50) K/uL Baso # (Auto) 0.02 (0.00-0.20) K/uL Immature Gran # (Auto) 0.02 (0.01-0.20) K/uL Sodium 136 (136-145) mmol/L Potassium 3.3 L (3.5-5.1) mmol/L Chloride 96 L (98-107) mmol/L Carbon Dioxide 33 H (21-32) mmol/L Anion Gap 7 (3-11) BUN 16 (6-23) mg/dl Creatinine 0.90 (0.6-1.2) mg/dl Est Cr Clr Drug Dosing Not Reportable Est GFR ( Amer) 74.6 ml/min Est GFR (Non-Af Amer) 64.3 ml/min BUN/Creatinine Ratio 17.8 (10-20) Glucose 123 H (70-99(Fasting)) mg/dl Calcium 9.1 (8.6-10.3) mg/dl Magnesium 1.5 L (1.7-2.4) mg/dl Total Bilirubin 0.5 (0.2-1.0) mg/dl AST 23 (13-39) U/L ALT 20 (7-52) U/L Alkaline Phosphatase 74 (34-104) U/L Troponin I High Sens 5.1 (0-14) pg/ml Total Protein 7.4 (6.0-8.3) gm/dl Albumin 4.0 (3.4-5.0) gm/dl Globulin 3.4 (2.5-4.0) gm/dl Albumin/Globulin Ratio 1.2 (0.9-2) Urine Color Yellow Urine Appearance Cloudy A (Clear) Urine pH 6.5 (4.5-7.5) Ur Specific [place] 1.011 (1.000-1.030) Urine Protein Negative (Negative) Urine Glucose (UA) Negative (Negative) Urine Ketones Negative (Negative) Urine Blood Negative (Negative) Urine Nitrite Negative (Negative) Urine Bilirubin Negative (Negative) Urine Urobilinogen Negative (Negative) Ur Leukocyte Esterase 3+ H (Negative) Urine WBC (Auto) >50 H (0-5) /hpf Urine RBC (Auto) 0-2 (0-2) /hpf U Hyaline Cast (Auto) 0-2 (0-2) /lpf U Epithel Cells (Auto) 3-5 H (0-2) /hpf Urine Bacteria (Auto) None Seen (None Seen) Administered Medications Discontinued Medications Sodium Chloride (Nss) 1,000 mls @ 999 mls/hr IV .Q1H1M ONE Stop: 03/08/24 12:59 Last Infusion: 03/08/24 14:16 Dose: Infused Documented By: Admin: 03/08/24 12:17 Dose: 999 mls/hr Documented By: PATO Ceftriaxone Sodium (Rocephin) 2,000 mg in 50 mls @ 100 mls/hr IV NOW STA Stop: 03/08/24 14:32 Last Infusion: 03/08/24 15:46 Dose: Infused Documented By: Admin: 03/08/24 14:22 Dose: 100 mls/hr Documented By: PATO Sodium Chloride (Nss) 1,000 mls @ 999 mls/hr IV .Q1H1M ONE Stop: 03/08/24 15:03 Last Admin: 03/08/24 14:22 Dose: 999 mls/hr Documented By: PATO Ioversol (Optiray 320 125ml) 112 ml IV ONCE ONE Stop: 03/08/24 13:08 Last Admin: 03/08/24 13:08 Dose: 112 ml Documented By: SARAHI Imaging Data Radiologist's Impression: Head CTA 03/08/24 11:57 HEAD CTA HISTORY: dizzy TECHNIQUE: Multiaxial CT images of the head were performed both before and after the intravenous administration of contrast to evaluate the major cerebral vessels. 3D/MIP images were also obtained. Sagittal and coronal reformats were reviewed. A dose lowering technique was utilized adhering to the principles of ALARA. COMPARISON: Head CT 11/18/2023. FINDINGS: Mild mucosal thickening and a trace fluid level within the left maxillary sinus. The remaining paranasal sinuses and mastoid air cells are clear. The calvarium and skull base are intact. There is no mass, hematoma, midline shift, or acute infarct. The ventricles and sulci are within normal limits. The major dural venous sinuses appear patent. Mild calcified plaque within the bilateral carotid siphons. Visualized intracranial internal carotid arteries, distal vertebral arteries, and basilar artery are widely patent. There is no significant stenosis, occlusion, or aneurysm seen within the bilateral ACAs, MCAs, or swatch maker. IMPRESSION: 1. No acute intracranial abnormality. 2. No significant stenosis, occlusion, or aneurysm within the [place]. ACT 112: Negative or not required by law. Electronically signed by: Ranjith Monae M.D. 03/08/2024 1:45 PM Neck CTA 03/08/24 11:57 CT angio neck with con CLINICAL HISTORY: 73 years-old Female with dizzy. Acute dizziness COMPARISON STUDY: CTA had of same day TECHNIQUE: Following the IV administration of 112 mL of Optiray, CT angiogram of the neck was performed from the aortic arch to the skull base. Images are reviewed in the axial, sagittal, and coronal planes. 3-D MIPS images are created and assessed. IV contrast was administered without complication. All measurements were calculated based on NASCET criteria. A dose lowering technique was utilized adhering to the principles of ALARA. FINDINGS: Three-vessel morphology of the thoracic aortic arch. Patency of the innominate and image subclavian arteries. The common carotid arteries are patent. Atherosclerosis of the carotid bulbs and proximal internal carotid arteries without high-grade stenosis. The vertebral arteries are codominant and widely patent. No aneurysm, dissection, high-grade stenosis or arterial occlusion. Lung apices are clear without pneumothorax. No acute fracture. Mild mucosal thickening of the maxillary sinuses. Degenerative changes of the cervical spine. IMPRESSION:Unremarkable CTA of the neck. ACT 112: Negative or not required by law. The above report was generated using voice recognition software. It may contain grammatical, syntax or spelling errors. Electronically signed by: Romario Paez M.D. 03/08/2024 1:37 PM Chest X-Ray 03/08/24 11:58 XR chest 1V portable HISTORY: 73 years-old Female weakness acute weakness COMPARISON: 11/18/2023 TECHNIQUE: AP view of the chest FINDINGS: Cardiac silhouette is enlarged. Atherosclerosis of the aorta. Mild right hemidiaphragmatic elevation. No pneumothorax or pleural effusion. The lungs are clear. Spondylotic spurring of the spine. IMPRESSION: No acute process of the chest. ACT 112: Negative or not required by law. The above report was generated using voice recognition software. It may contain grammatical, syntax or spelling errors. Electronically signed by: Romario Paez M.D. 03/08/2024 12:58 PM Venous Doppler Study 03/08/24 15:56 BILATERAL LOWER EXTREMITY VENOUS DOPPLER CLINICAL HISTORY: b/l calf swelling and pain COMPARISON STUDY: No previous studies for comparison. TECHNIQUE: Sonography of the deep venous system of the bilateral lower extremities was performed. Compression and augmentation were evaluated. FINDINGS: There is deep venous thrombus within one of 2 paired right peroneal veins. No additional sites of deep venous thrombus within the right lower extremity are present. There is no deep venous thrombus within the left lower extremity. IMPRESSION: Deep venous thrombus within one of two paired right peroneal veins. No additional sites of deep venous thrombus within the lower extremities. ACT 112: Negative or not required by law. Electronically signed by: Seun Whitley M.D. 03/08/2024 5:20 PM Discharge Plan Visit Data Chief Complaint: Vertigo Stated Complaint: VERTIGO AND FALLS, CHEST PAIN FROM FALL ED Provider: Sam Youssef Discharge Problem: AMS (altered mental status), Anemia, Hypokalemia, UTI (urinary tract infection) Patient Disposition: Admitted As Inpatient Discharge Instructions Interventions: ED Discharge Assessment Last Done: 03/08/24 17:29 Forms Stand Alone Forms: [facility] [employer] Prescriptions Prescriptions: No Action loratadine [Claritin] 10 mg tablet 10 mg PO QAM Qty: 90 0RF (DME) lancing device with lancets [Accu-Chek FastClix Lancing Dev] Kit See Rx Instructions .Route Qty: 1 3RF Rx Instructions: TEST ONCE WEEKLY (DME) lancets [Accu-Chek Fastclix Lancet Drum] Misc See Dose Instructions .ROUTE .MEDSUPPLY Qty: 200 1RF Dose Instruction: As directed Rx Instructions: test one time per week; dx code- E11.9 albuterol sulfate [Ventolin HFA] 90 mcg/actuation HFA aerosol inhaler 2 puff INH QID PRN (Reason: sob) Qty: 18 1RF (DME) Accu-Chek Guide test strips Strip See Dose Instructions .ROUTE .MEDSUPPLY Qty: 100 1RF Dose Instruction: As directed Rx Instructions: check blood sugar 1 time per week; dx code- E11.9 metformin 500 mg tablet 250 mg PO BID Qty: 90 1RF omeprazole 20 mg capsule,delayed release(DR/EC) 40 mg PO DAILY Qty: 180 3RF hydrochlorothiazide 25 mg tablet 25 mg PO QAM Qty: 90 1RF Patient Comments: QAM simvastatin [Zocor] 40 mg tablet 40 mg PO HS Qty: 90 1RF levothyroxine 200 mcg tablet 200 mcg PO QAM Qty: 90 3RF montelukast [Singulair] 10 mg tablet 10 mg PO QPM Qty: 90 1RF Patient Comments: HS Centrum Silver 0.4-300-250 mg-mcg-mcg tablet 1 tab PO QAM Mounjaro 2.5 mg/0.5 mL pen injector 2.5 mg subcut Q7D Qty: 2 3RF Rx Instructions: Take on thur mometasone [Nasonex] 50 mcg/actuation [place],Non-Aerosol 2 spray INTRANASAL DAILY lisinopril 20 mg tablet 10 mg PO QAM Patient Comments: QAM venlafaxine [Effexor XR] 150 mg capsule,extended release 24hr 150 mg PO QAM Patient Comments: QAM metoprolol succinate 25 mg tablet extended release 24 hr 25 mg PO QAM Patient Comments: QAM tamoxifen 20 mg tablet 20 mg PO QAM solifenacin [Vesicare] 10 mg tablet 10 mg PO QPM sodium chloride [Iftikhar 128] 5 % Ointment 1 applic OPHTHALMIC (EYE) DAILY vitamin E [Vitamin E-400] 268 mg (400 unit) Capsule 268 mg PO DAILY calcium carbonate [Tums Ultra] 400 mg calcium (1,000 mg) Tablet,Chewable 400 mg PO DAILY omega 6-rts-fja-fish oil [Fish Oil] 1,000 mg (120 mg-180 mg) Capsule 1 cap PO QAM Referrals Referrals: Hailey Munoz MD [Primary Care Provider] - Discharge Problem: AMS (altered mental status) Qualifiers: Altered mental status type: unspecified Qualified Code(s): R41.82 - Altered mental status, unspecified Anemia Qualifiers: Anemia type: unspecified type Qualified Code(s): D64.9 - Anemia, unspecified UTI (urinary tract infection) Qualifiers: Urinary tract infection type: acute cystitis Hematuria presence: without hematuria Qualified Code(s): N30.00 - Acute cystitis without hematuria
[2024-03-08 12:15] LABS: Basophils # (auto) 0.02 K/uL (0.00-0.20); Basophils % (auto) 0.3 %; Eosinophils # (auto) 0.54 K/uL (0.00-0.50); Hematocrit (blood only) 36.1 % (37.0-47.0); Hemoglobin 11.9 g/dl (12.0-16.0); Immature Granulocytes # (auto) 0.02 K/uL (0.01-0.20); Immature Granulocytes % (auto) 0.3 %; Lymphocytes # (auto) 1.41 K/uL (1.20-3.40); Lymphocytes % (auto) 18.2 %; Mean Corpuscular Hemoglobin 29.5 pg (25.0-34.0); Mean Corpuscular Volume 89.6 fL (80.0-100.0); Mean Platelet Volume 9.2 fL (9.4-12.4); Monocytes # (auto) 0.76 K/uL (0.11-0.59); Monocytes % (auto) 9.8 %; Neutrophils # (auto) 5.01 K/uL (1.40-6.50); Neutrophils % (auto) 64.4 %; Platelet Count 285 K/uL (130-400); RDW Coefficient of Variation 12.6 % (11.5-14.5); RDW Standard Deviation 41.6 fL (36.4-46.3); Red Blood Count 4.03 M/uL (4.20-5.40); White Blood Count 7.76 K/ul (4.8-10.8)
[2024-03-08 12:16] LABS: Appearance Urine Cloudy (Clear); Bacteria Urine Automated None Seen (None Seen); Bilirubin Urine Negative (Negative); Blood Urine Negative (Negative); Cast Urine Automated 0-2 /lpf (0-2); Color Urine Yellow; Glucose Urine UA Negative (Negative); Ketones Urine Negative (Negative); Leukocyte Esterase Urine 3+ (Negative); Nitrite Urine Negative (Negative); Protein Urine Negative (Negative); RBC Urine Automated 0-2 /hpf (0-2); Specific Gravity Urine 1.011 (1.000-1.030); Urobilinogen Urine Negative (Negative); WBC Urine Automated >50 /hpf (0-5); pH Urine 6.5 (4.5-7.5)
[2024-03-08] MEDS: SODIUM CHLORIDE 0.9% 1,000 ML IV ONE ×2 (12:17→14:22)
[2024-03-08 12:40] LABS: Alanine Aminotransferase 20 U/L (7-52); Albumin Globulin Ratio 1.2 (0.9-2); Alkaline Phosphatase 74 U/L (34-104); Anion Gap 7 (3-11); Aspartate Aminotransferase 23 U/L (13-39); BUN Creatinine Ratio 17.8 (10-20); Bilirubin,Total 0.5 mg/dl (0.2-1.0); Blood Urea Nitrogen 16 mg/dl (6-23); Calcium 9.1 mg/dl (8.6-10.3); Carbon Dioxide 33 mmol/L (21-32); Chloride 96 mmol/L (98-107); Est GFR (African American) 74.6 ml/min; Est GFR (Non-African American) 64.3 ml/min; Globulin 3.4 gm/dl (2.5-4.0); Glucose 123 mg/dl (70-99(Fasting)); Potassium 3.3 mmol/L (3.5-5.1); Sodium 136 mmol/L (136-145); Total Protein 7.4 gm/dl (6.0-8.3)
[2024-03-08 12:46] LABS: Troponin I High Sensitivity 5.1 pg/ml (0-14)
--- NOTE | 2024-03-08 12:59 | XRay Report ---
XR chest 1V portable HISTORY: 73 years-old Female weakness acute weakness COMPARISON: 11/18/2023 TECHNIQUE: AP view of the chest FINDINGS: Cardiac silhouette is enlarged. Atherosclerosis of the aorta. Mild right hemidiaphragmatic elevation. No pneumothorax or pleural effusion. The lungs are clear. Spondylotic spurring of the spine. IMPRESSION: No acute process of the chest. ACT 112: Negative or not required by law. The above report was generated using voice recognition software. It may contain grammatical, syntax o r spelling errors. Electronically signed by: Romario Paez M.D. 03/08/2024 12:58 PM
[2024-03-08] MEDS: OPTIRAY 320 125ml IV ONE (13:08)
--- NOTE | 2024-03-08 13:38 | CT Scan Report ---
CT angio neck with con CLINICAL HISTORY: 73 years-old Female with dizzy. Acute dizziness COMPARISON STUDY: CTA had of same day TECHNIQUE: Following the IV administration of 112 mL of Optiray, CT angiogram of the neck was perform ed from the aortic arch to the skull base. Images are reviewed in the axial, sagittal, and coronal pl anes. 3-D MIPS images are created and assessed. IV contrast was administered without complication. Al l measurements were calculated based on NASCET criteria. A dose lowering technique was utilized adhe ring to the principles of ALARA. FINDINGS: Three-vessel morphology of the thoracic aortic arch. Patency of the innominate and image subclavian a rteries. The common carotid arteries are patent. Atherosclerosis of the carotid bulbs and proximal in ternal carotid arteries without high-grade stenosis. The vertebral arteries are codominant and widely patent. No aneurysm, dissection, high-grade stenosis or arterial occlusion. Lung apices are clear without pneumothorax. No acute fracture. Mild mucosal thickening of the maxilla ry sinuses. Degenerative changes of the cervical spine. IMPRESSION:Unremarkable CTA of the neck. ACT 112: Negative or not required by law. The above report was generated using voice recognition software. It may contain grammatical, syntax o r spelling errors. Electronically signed by: Romario Paez M.D. 03/08/2024 1:37 PM
--- NOTE | 2024-03-08 13:47 | CT Scan Report ---
HEAD CTA HISTORY: dizzy TECHNIQUE: Multiaxial CT images of the head were performed both before and after the intravenous admi nistration of contrast to evaluate the major cerebral vessels. 3D/MIP images were also obtained. Sag ittal and coronal reformats were reviewed. A dose lowering technique was utilized adhering to the ness Ingram. COMPARISON: Head CT 11/18/2023. FINDINGS: Mild mucosal thickening and a trace fluid level within the left maxillary sinus. The remain ing paranasal sinuses and mastoid air cells are clear. The calvarium and skull base are intact. There is no mass, hematoma, midline shift, or acute infarct. The ventricles and sulci are within normal li mits. The major dural venous sinuses appear patent. Mild calcified plaque within the bilateral caroti d siphons. Visualized intracranial internal carotid arteries, distal vertebral arteries, and basilar artery are widely patent. There is no significant stenosis, occlusion, or aneurysm seen within the bi lateral ACAs, MCAs, or applied behavior specialist. IMPRESSION: 1. No acute intracranial abnormality. 2. No significant stenosis, occlusion, or aneurysm within the [place]. ACT 112: Negative or not required by law. Electronically signed by: Ranjith Monae M.D. 03/08/2024 1:45 PM
[2024-03-08] MEDS: cefTRIAXone SODIUM 2,000 MG/50 ML BAG IV STA (14:22)
--- NOTE | 2024-03-08 14:35 | Electrocardiogram Report ---
Test Reason : Blood Pressure : / mmHG Vent. Rate : 094 BPM Atrial Rate : 094 BPM P-R Int : 162 ms QRS Dur : 084 ms QT Int : 360 ms P-R-T Axes : 032 -29 044 degrees QTc Int : 450 ms Normal sinus rhythm Left ventricular hypertrophy with repolarization abnormality Possible Old Anterolateral infarct (cited on or before 25-JAN-2019) Abnormal ECG When compared with ECG of 18-NOV-2023 20:28, Premature ventricular complexes are no longer Present Confirmed by Mikhail Reagan ([id number]) on 03/08/2024 2:35:34 PM Referred By: Confirmed By:Mikhail Reagan
[2024-03-08 15:46] LABS: Magnesium 1.5 mg/dl (1.7-2.4)
--- NOTE | 2024-03-08 15:54 | History & Physical Report ---
Date of Service March 08, 2024 Assessment & Plan (1) Confusion: Plan: This is a 73 year old female with past medical history of type 2 diabetes, lower extremity venous stasis, urinary incontinence who presented to the ED on 03/08 with chief complaint of confusion. -Urinalysis positive for UTI -Given 2g Rocephin in ED -plan to continue 03/09 -await urine cultures -CXR reviewed, negative -head/neck CTA reviewed, negative -CBC reviewed, WBC WNL -BMP reviewed, Potassium mildly low 3.3, magnesium 1.5 AM labs include CBC, BMP, Magnesium, B12, TSH (2) Hx of falling: Plan: PT/OT consulted, appreciate recommendations (3) Lower extremity venous stasis: Plan: Patient endorses chronic history of venous stasis and episodes of cellulitis. Denies recent abx use. -b/l doppler US pending (4) Type 2 diabetes mellitus: Plan: -Pharmacy consulted, appreciate recommendations -on home Tirzepatide injections and metformin -hold while inpatient AM Hgb A1c (5) UTI (urinary tract infection): (6) Hypomagnesemia: Plan Chronic conditions: Hypertension: HCTZ, lisinopril, metoprolol Hypothyroidism: Levothyroxine Asthma/allergies: montelukast, loratadine, albuterol prn hyperlipidemia: simvastatin GERD: Omeprazole Anxiety/depression: venlafaxine Disposition: admit to med/tele Diet: heart heathy, carb consistent Code status: full DVT prophylaxis: SCD's Admission and Anticipated Discharge Date Admission Date: March 08, 2024 History of Present Illness Chief Complaint: confusion Primary Care Provider: Hailey Munoz MD This is a 73 year old female with past medical history of type 2 diabetes, lower extremity venous stasis, urinary incontinence who presented to the ED on 03/08 with chief complaint of confusion. Patient was relatively poor historian. Sister was present at bedside. Patient reports she has sustained several falls over the last month. She states that she has called the ambulance twice for help off the floor but does not believe she was evaluated. she struck her head on a fall about 1-2 weeks ago. She also reports about a month ago she fell and has been experiencing right arm numbness since. She reports no pain in her upper extremities. She has chronic venous stasis of her lower extremities and a history of cellulitis. She has also had worsening confusion over the last month. She states the other day she reported to her daughters at 2am to babysit instead of 2pm. she was confused why lights were off in the house so she sat in her car for 3 hours and cleaned out her purse. She reports occasional headaches. She reports constipation as well and states her stools are like ihsan. She denies nausea or vomiting. She denied any urinary complaints. She states she has chronic frequent urination but attributes this to medication she is on. She states she takes "a lot" of medications daily but could not recall what they were. She denied chest pain or shortness of breath. Denied any hearing or visual deficits. She denies recent illness or antibiotic use. Allergies Allergy/AdvReac Type Severity Reaction Status Date / Time codeine Allergy Mild RASH Verified 03/08/24 16:34 Sulfa (Sulfonamide Allergy Mild RASH Verified 03/08/24 16:34 Antibiotics) sulfamethoxazole Allergy Mild RASH Verified 03/08/24 16:34 trimethoprim Allergy Mild RASH Verified 03/08/24 16:34 Home Medications Medication Instructions Recorded Confirmed Type bizuhxph-uxk-ictig acid 0.4 1 tab PO QAM 02/05/19 03/08/24 History mg-lycopene 300 mcg-lutein 250 mcg tablet (Centrum Silver) loratadine 10 mg tablet (Claritin) 10 mg PO QAM #90 tabs 10/01/21 03/08/24 Rx lancing device with lancets kit #1 ea 01/14/22 03/08/24 Rx (Accu-Chek FastClix Lancing Device kit) lancets (Accu-Chek Fastclix Lancet #200 ea 02/03/22 03/08/24 Rx Drum) albuterol sulfate 90 mcg/actuation 2 puff inhalation QID PRN sob #18 02/16/23 03/08/24 Rx aerosol inhaler (Ventolin HFA) grams blood sugar diagnostic (Accu-Chek #100 ea 04/21/23 03/08/24 Rx Guide test strips) metformin 500 mg tablet 250 mg (1/2 x 500 mg) PO BID #90 08/24/23 03/08/24 Rx tabs omeprazole 20 mg capsule,delayed 40 mg (2 x 20 mg) PO DAILY #180 02/06/24 07/23/24 Rx release caps montelukast 10 mg tablet 10 mg PO QPM #90 tabs 10/19/23 03/08/24 Rx (Singulair) hydrochlorothiazide 25 mg tablet 25 mg PO QAM #90 tabs 11/16/23 03/08/24 Rx simvastatin 40 mg tablet (Zocor) 40 mg PO HS hypercholesterolemia 11/16/23 03/08/24 Rx #90 tabs omega 4-sok-elj-fish oil 1,000 mg 1 cap PO QAM 11/18/23 03/08/24 History (120 mg-180 mg) capsule (Fish Oil) tirzepatide 2.5 mg/0.5 mL 2.5 mg (0.5 mL) subcut Q7D #2 mL 11/30/23 03/08/24 Rx subcutaneous pen injector (Mounjaro) lisinopril 20 mg tablet 10 mg PO QAM 12/04/23 03/08/24 History metoprolol succinate 25 mg 25 mg PO QAM 12/04/23 03/08/24 History tablet,extended release 24 hr mometasone 50 mcg/actuation nasal 2 spray intranasal DAILY 12/04/23 03/08/24 History spray solifenacin 10 mg tablet (Vesicare) 10 mg PO QPM 12/04/23 03/08/24 History tamoxifen 20 mg tablet 20 mg PO QAM 12/04/23 03/08/24 History venlafaxine 150 mg 150 mg PO QAM 12/04/23 03/08/24 History capsule,extended release 24 hr (Effexor XR) levothyroxine 200 mcg tablet 200 mcg PO QAM #90 tabs 02/16/24 03/08/24 Rx calcium carbonate (Tums Ultra) 400 mg PO DAILY 03/08/24 03/08/24 History sodium chloride 5 % eye ointment 1 applic ophthalmic (eye) DAILY 03/08/24 03/08/24 History (Iftikhar 128) vitamin E 268 mg (400 unit) capsule 268 mg PO DAILY 03/08/24 03/08/24 History Past Med/Surg History Problem List (Updated 03/09/24 @ 08:11 by Lon Dempsey MD) Hypomagnesemia UTI (urinary tract infection) (Acute) Hypokalemia (Acute) Anemia (Acute) AMS (altered mental status) (Acute) Confusion Lower extremity venous stasis Cellulitis of right leg Dysphagia Finger joint swelling Cellulitis of left lower extremity Elbow injury Cough Constipation Chest pressure 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) Urinary incontinence Postmenopausal Type 2 diabetes mellitus S/P lumpectomy, left breast (12/10/20) Left Breast Lumpectomy with left sentinel node biopsy using Bethanie streetcar starter and neoprobe(Left) - Philip March MD, FACS History of left breast cancer s/p lumpectomy + tamoxifen x 5 years Original Dx 1997 recurrence in 11/2020, taking tamoxifen currently Medical History Hx of falling reports recently falling x 2 and having to call ambulance to help get off of floor, no major injuries Cellulitis both lower legs Urinary incontinence Postmenopausal Allergic rhinitis Cervical somatic dysfunction Cranial somatic dysfunction Hypercholesterolemia Hypertension Hypothyroidism Idiopathic peripheral neuropathy Obesity MILTON (obstructive sleep apnea) Per records - not on CPAP Asthma HAS NOT USED RESCUE INHALER FOR A WHILE Macular degeneration Osteoarthritis Fatty liver GERD (gastroesophageal reflux disease) History of left breast cancer s/p lumpectomy + tamoxifen x 5 years Original Dx 1997 recurrence in 11/2020, taking tamoxifen currently Depression Chronic venous insufficiency Type 2 diabetes mellitus Bilateral lower extremity edema Surgical History S/P lumpectomy, left breast (12/10/20) Left Breast Lumpectomy with left sentinel node biopsy using Bethanie streetcar starter and neoprobe(Left) - Philip March MD, FACS History of tooth extraction S/P arthroscopy of left shoulder Rotator cuff repair History of nasal surgery History of partial hysterectomy History of colonoscopy History of lumpectomy of left breast x 2 Family History Brother Diabetes Non-Hodgkins lymphoma Waldenstrom's disease Father , 80yo Heart disease Melanoma Myocardial infarction Acute Diabetes Mother , 59yo Hepatitis Hepatic cirrhosis Sister No problems noted. Sister Fibromyalgia Arthritis Daughter No problems noted. Other No family history of adverse response to anesthesia Denies family history of Ovarian cancer Prostate cancer Breast cancer Colorectal cancer Social History Smoking Status: Never smoker Second Hand Exposure: No; Do You Dip or Chew Tobacco: No; Hx Alcohol Use: No Hx Substance Use: No Preferred Language: Palestinian Communication Ability: Effective Visual Impairment: Limited Hearing Ability: Normal Machine Boss Required: No Beliefs That Will Affect Care: None marital status: / Current Living Situation: Alone Current Living Situation Comment: lives alone current occupational status: retired How many Children do You have: 1 Feels Safe at Home: Yes Childhood Exposure to Second-Hand Smoke: No Diet: regular caffeine: Yes (Soda) during the past year weight has: remained stable Dental Care, Regularly: Yes Physical Activity Frequency: 1-2 Times per Week Seatbelt Use: always Sunscreen Use: No Assistive Devices: Glasses Review of Systems 2 Review of Systems: see HPI Physical Exam 2 Constitutional: WD/WN, vitals as above Eyes: PERRL, conjunctivae normal, anicteric sclerae Respiratory: normal respiratory effort, lungs clear to auscultation Cardiovascular: tachycardic, regular rhythm. b/l venous stasis Gastrointestinal (Abdomen): normal bowel sounds, soft, nontender, no hepatosplenomegaly Skin: no rashes, warm and dry Psychiatric: A+Ox3, euthymic affect Results & Data Results & Data Vital Signs (Past 12 Hours) Vital Signs Temp Pulse Resp BP Pulse Ox O2 Del Method 03/08/24 14:24 95 H 22 142/82 H 95 Room Air 03/08/24 12:30 91 H 20 143/71 H 94 Room Air 03/08/24 11:40 36.4 C L 79 20 136/75 96 Room Air Laboratory Results 03/08/24 11:59 03/08/24 11:59 Diagnostic Findings Head CTA 03/08/24 11:57 IMPRESSION: 1. No acute intracranial abnormality. 2. No significant stenosis, occlusion, or aneurysm within the [place]. Electronically signed by: Ranjith Monae M.D. 03/08/2024 1:45 PM Neck CTA 03/08/24 11:57 IMPRESSION:Unremarkable CTA of the neck. Electronically signed by: Romario Paez M.D. 03/08/2024 1:37 PM Chest X-Ray 03/08/24 11:58 IMPRESSION: No acute process of the chest. Electronically signed by: Romario Paez M.D. 03/08/2024 12:58 PM Supervising Physician Co-Signing Physician Notes I personally saw and examined the patient. I independently reviewed the labs, EKG, imaging, problem list, medication list, past medical history and family history. I verified all tony points and agree with Arlen Alfaro PA-C with the following exceptions and/or additions: 73 year old female presents to the ER following a fall. Ongoing worsening ambulatory dysfunction over the last year but dramatically worse over the last week. No chest pain, shortness of breath, abdominal pain, urinary, respiratory or GI symptoms. Turned up at 2am to babysit rather than 2pm. She did not take any of her usual medications today. O/E A&Ox2, not orientated to time, HS RRR, no murmurs, Chest CTAB, Abdo SNT, no CVA tenderness, CN 2-> 12 intact, b/l UE dysdiadochokinesia, B/l extremity strength 5/5 UE, 4/5 LE, bilateral calf pain and swelling, 1+ pedal edema b/l with venous stasis changes A/P Possible UTI - would explain the acute worsening ambulatory dysfunction with confusion although no specific urinary symptoms and UA not overly convincing for UTI. Elect to empirically treat pending urine culture Ambulatory dysfunction with dysdiadochokinesia - this appears longer standing and progressive. Will get brain MRI and complete stroke wokrup only if positive. B12 level and TSH with AM labs. Possibly just related to her chronic venous insufficiency and deconditioning DVT - Lovenox 1mg/kg BID, can switch to insurance preferred DOAC tomorrow HTN - hold HCTZ as not taken her usual medications today therefore plan to re- introduce slowly to avoid hypotension Otherwise as above PG Care Time/CCT Total # of Minutes Spent Total Time Spent with Patient: Total time spent is greater than 50% in coordination of care (as documented) at patient's floor/unit and/or counseling patient: Coding Level of Care Code 96959 INT INP/OBS CARE 2/55MIN Diagnoses Confusion R41.0 Hx of falling Z91.81 Lower extremity venous stasis I87.8 Type 2 diabetes mellitus without complication, without long-term current use of insulin E11.9 Diabetes mellitus complication status: without complication Diabetes mellitus intermediate insulin use: without intermediate use UTI (urinary tract infection) N30.00 Hematuria presence: without hematuria Urinary tract infection type: acute cystitis Hypomagnesemia E83.42 (4) Type 2 diabetes mellitus Diabetes mellitus complication status: without complication Diabetes mellitus intermission coordinator insulin use: without intermission coordinator use Qualified Code(s): E11.9 - Type 2 diabetes mellitus without complications (5) UTI (urinary tract infection) Hematuria presence: without hematuria Urinary tract infection type: acute cystitis Qualified Code(s): N30.00 - Acute cystitis without hematuria
--- NOTE | 2024-03-08 17:21 | Ultrasound Report ---
BILATERAL LOWER EXTREMITY VENOUS DOPPLER CLINICAL HISTORY: b/l calf swelling and pain COMPARISON STUDY: No previous studies for comparison. TECHNIQUE: Sonography of the deep venous system of the bilateral lower extremities was performed. Co mpression and augmentation were evaluated. FINDINGS: There is deep venous thrombus within one of 2 paired right peroneal veins. No additional si ivette of deep venous thrombus within the right lower extremity are present. There is no deep venous thr ombus within the left lower extremity. IMPRESSION: Deep venous thrombus within one of two paired right peroneal veins. No additional sites o f deep venous thrombus within the lower extremities. ACT 112: Negative or not required by law. Electronically signed by: Seun Whitley M.D. 03/08/2024 5:20 PM
[2024-03-08] MEDS ORDERED: ALBUTEROL HFA 8 GM INHALER INH PRN (18:25)
[2024-03-08] MEDS ORDERED: ACETAMINOPHEN 325 MG TAB PO PRN (18:25)
[2024-03-08] MEDS ORDERED: ONDANSETRON INJ 2 MG/ML 2 ML VIAL IV PRN (18:25)
[2024-03-08] MEDS ORDERED: POLYETHYLENE (MIRALAX) 17 GM PACK PO PRN (18:25)
[2024-03-08] MEDS ORDERED: PHARMACY GLYCEMIC MGMT CONSULT PRN (18:25)
[2024-03-08] MEDS ORDERED: Patient's HEIGHT &/or WEIGHT Needed SCH (19:00)
[2024-03-08] MEDS: MAGNESIUM SULFATE / D5W 1 GM/100 ML BAG IV SCH (19:32)
[2024-03-08] MEDS: POTASSIUM CHLORIDE CRTAB 20 MEQ TABCR PO STA (19:36)
[2024-03-08] MEDS: SODIUM CHLORIDE 0.9% 1,000 ML IV SCH (19:38)
[2024-03-08] MEDS ORDERED: ENOXAPARIN 1 MG/KG SQ SCH (20:00)
[2024-03-08] MEDS ORDERED: CARBOHYDRATES FOR HYPOGLYCEMIA PO PRN (20:15)
[2024-03-08] MEDS ORDERED: GLUCOSE 40% GEL 15 GM TUBE PO PRN (20:15)
[2024-03-08] MEDS ORDERED: GLUCAGON FOR INJ 1 MG VIAL IM PRN (20:15)
[2024-03-08] MEDS ORDERED: GLUCOSE 10 TAB/TUBE PO PRN (20:15)
[2024-03-08] MEDS ORDERED: DEXTROSE 50% 50 ML SYRINGE IV PRN (20:15)
[2024-03-08] MEDS: OXYBUTYNIN CHLORIDE XL 5 MG TABCR PO SCH (21:17)
[2024-03-08] MEDS: SIMVASTATIN 40 MG TAB PO SCH (21:17)
[2024-03-08] MEDS: MONTELUKAST SODIUM 10 MG TABLET PO SCH (21:18)
[2024-03-08] MEDS: METOPROLOL SUCC 25MG EXT REL TAB PO STA (21:19)
[2024-03-08] MEDS: ENOXAPARIN INJ 120 MG/0.8 ML SYR SQ SCH (21:43)
--- NOTE | 2024-03-08 22:00 | Communication Note ---
Date of Service: March 08, 2024 Patient developed a left subconjunctival hemorrhage not present on admission but present when she arrived to her room on 2 . Does not think she rubbed her eye. She has not taken her BP medications today but also her BP has not been overtly elevated. Although a relatively benign diagnosis and should self resolve - given this has just occurred and no concerns for PE despite DVT present will defer starting anticoagulation until re-examination by provider tomorrow.
[2024-03-08] MEDS: INSULIN ASPART PER UNIT CHARGE SC SCH (22:22)
--- NOTE | 2024-03-09 02:07 | Magnetic Resonance Report ---
Exam(s): MRI HEAD Without Contrast EXAM: MR Head Without Intravenous Contrast CLINICAL HISTORY: Reason for exam: dysdiadochokinesia ?CVA. TECHNIQUE: Magnetic resonance images of the head/brain without intravenous contrast in multiple planes. COMPARISON: Prior head CT from March 08, 2024. FINDINGS: Brain: Minimal nonspecific white matter changes. No mass. No hemorrhage. No acute infarct. The flow voids of the base of the brain are intact. Ventricles: Unremarkable. No ventriculomegaly. Bones/joints: Unremarkable. No acute fracture. Sinuses: Chronic maxillary and ethmoid sinusitis. No acute sinusitis. Mastoid air cells: Unremarkable as visualized. No mastoid effusion. Orbits: Unremarkable as visualized. IMPRESSION: No evidence of acute intracranial pathology. Electronically signed by: Amy Angelo MD 03/09/24 02:06 AM
[2024-03-09] MEDS: LEVOTHYROXINE SODIUM 200 MCG TABLET PO SCH (06:08)
[2024-03-09 06:29] LABS: Basophils # (auto) 0.03 K/uL (0.00-0.20); Basophils % (auto) 0.5 %; Eosinophils # (auto) 0.61 K/uL (0.00-0.50); Eosinophils % (auto) 10.5 %; Hematocrit (blood only) 31.4 % (37.0-47.0); Hemoglobin 10.2 g/dl (12.0-16.0); Immature Granulocytes # (auto) 0.01 K/uL (0.01-0.20); Immature Granulocytes % (auto) 0.2 %; Lymphocytes # (auto) 1.64 K/uL (1.20-3.40); Lymphocytes % (auto) 28.3 %; Mean Corpuscular Hemoglobin 29.1 pg (25.0-34.0); Mean Corpuscular Hgb Conc 32.5 g/dL (32.0-36.0); Mean Corpuscular Volume 89.5 fL (80.0-100.0); Mean Platelet Volume 9.4 fL (9.4-12.4); Monocytes # (auto) 0.68 K/uL (0.11-0.59); Monocytes % (auto) 11.7 %; Neutrophils # (auto) 2.82 K/uL (1.40-6.50); Neutrophils % (auto) 48.8 %; Platelet Count 246 K/uL (130-400); RDW Coefficient of Variation 13.1 % (11.5-14.5); RDW Standard Deviation 42.6 fL (36.4-46.3); Red Blood Count 3.51 M/uL (4.20-5.40); White Blood Count 5.79 K/ul (4.8-10.8)
[2024-03-09 06:47] LABS: Calcium 8.1 mg/dl (8.6-10.3); Creatinine Clr Calc Pharmacy 82.8 ml/min; Est GFR (Non-African American) 77.7 ml/min; Potassium 3.5 mmol/L (3.5-5.1)
[2024-03-09 06:53] LABS: Estimated Average Glucose 131 mg/dl; Hemoglobin A1C 6.2 % (4.5-5.6)
[2024-03-09 07:02] LABS: Thyroid Stimulating Hormone 5.618 uIu/ml (0.300-4.500)
[2024-03-09 07:37] LABS: T4 Free Thyroxine 0.92 ng/dl (0.61-1.60)
[2024-03-09] MEDS: VENLAFAXINE HCL XR 150 MG CAPXR PO SCH (08:10)
[2024-03-09] MEDS: PANTOprazole 40 MG TAB PO SCH (08:10)
[2024-03-09] MEDS: TAMOXIFEN CITRATE 10 MG TABLET PO SCH (08:10)
[2024-03-09] MEDS: CALCIUM CARBONATE 500 MG CHEWABLE TAB PO SCH (08:10)
[2024-03-09] MEDS: LORATADINE 10 MG TAB PO SCH (08:11)
[2024-03-09] MEDS: lisinopril 10 MG TAB PO SCH (08:11)
[2024-03-09] MEDS: METOPROLOL SUCC 25MG EXT REL TAB PO SCH (08:12)
[2024-03-09] MEDS: FLUTICASONE PROPIONATE NA SPR 16 GM BTL SCH (08:13)
[2024-03-09] MEDS ORDERED: hydroCHLOROthiazide 25 MG TAB PO SCH (09:00)
--- NOTE | 2024-03-09 11:34 | Hospitalist Progress Note ---
Date of Service March 09, 2024 Assessment & Plan (1) Confusion: Plan: This is a 73 year old female with past medical history of type 2 diabetes, lower extremity venous stasis, urinary incontinence who presented to the ED on 03/08 with chief complaint of confusion. 1.) Metabolic encephalopathy in setting of UTI and electrolyte deficiency (Hypokalemia and hypomagnesemia) -Urinalysis positive for UTI -Given 2g Rocephin in ED -plan to continue 03/09 -prelim urine cultures: gram negative bacilli -CXR reviewed, negative -head/neck CTA reviewed, negative -brain MRI reviewed 03/09: negative -CBC reviewed 03/09, WBC WNL, hgb 10.2 (drop likely diluational) -BMP reviewed 03/09,WNL -B12 reviewed 03/09: WNL -TSH reviewed : elevated at 5.618 with normal T4 of 0.92 AM labs include CBC, BMP, Magnesium (2) DVT (deep venous thrombosis): Plan: Patient endorses chronic history of venous stasis and episodes of cellulitis. Denies recent abx use. -b/l doppler positive for DVT in right lower extremity. -did not state chronic vs acute -patient asymptomatic -Heparin BID (3) Hx of falling: Plan: PT/OT consulted and reviewed 03/09 -recommended rehab (4) Type 2 diabetes mellitus: Plan: -Pharmacy consulted, appreciate recommendations -on home Tirzepatide injections and metformin -hold while inpatient -hemoglobin A1c 03/09: 6.2 (5) UTI (urinary tract infection): Plan: see confusion plan (6) Hypomagnesemia: Plan: Upon admission to ED magnesium found to be low at 1.5 -reviewed magnesium 03/09: WNL at 2. AM Magnesium Plan Pressure ulcer of right buttock, stage 2 POA wound nurse consulted Constipation: added 1 capful Miralax daily. -patient has bidirectional endoscopy set for May per patient. Chronic conditions: Hypertension: HCTZ, lisinopril, metoprolol Hypothyroidism: Levothyroxine Asthma/allergies: montelukast, loratadine, albuterol prn hyperlipidemia: simvastatin GERD: Omeprazole Anxiety/depression: venlafaxine Disposition: admit to med/tele Diet: heart heathy, carb consistent Code status: full DVT prophylaxis: Heparin BID Admission and Anticipated Discharge Date Admission Date: March 08, 2024 Supervising Physician Co-Signing Physician Notes The patient was not seen by me. The chart was reviewed. Case discussed with ROSEANN Estrella. Agree with assessment and plan Subjective Patient seen and examined this morning. Patient reports to be feeling well. She was AxOx3 at time of my encounter. She does admit to still experiencing constipation. She stated she feels less confused today. Denied chest pain, SOB, leg pain, urinary issues. Reports no trauma to her left eye. Physical Exam 2 Constitutional: WD/WN, vitals as above Eyes: PERRL, conjunctivae normal, anicteric sclerae Respiratory: normal respiratory effort, lungs clear to auscultation Cardiovascular: RRR, no murmur, no edema Skin: no rashes, warm and dry Psychiatric: A+Ox3, euthymic affect Results & Data Results & Data Vital Signs (Past 12 Hours) Vital Signs Temp Pulse Pulse Resp BP Pulse Ox O2 Del Method 03/09/24 11:22 88 03/09/24 10:50 36.4 C L 84 15 138/78 94 Room Air 03/09/24 07:28 36.5 C 86 20 146/80 H 90 Room Air 03/09/24 03:02 36.7 C 83 18 128/73 93 Room Air Laboratory Results 03/09/24 05:48 03/09/24 05:48 Diagnostic Findings Venous Doppler Study 03/08/24 15:56 BILATERAL LOWER EXTREMITY VENOUS DOPPLER CLINICAL HISTORY: b/l calf swelling and pain COMPARISON STUDY: No previous studies for comparison. TECHNIQUE: Sonography of the deep venous system of the bilateral lower extremities was performed. Compression and augmentation were evaluated. FINDINGS: There is deep venous thrombus within one of 2 paired right peroneal veins. No additional sites of deep venous thrombus within the right lower extremity are present. There is no deep venous thrombus within the left lower extremity. IMPRESSION: Deep venous thrombus within one of two paired right peroneal veins. No additional sites of deep venous thrombus within the lower extremities. ACT 112: Negative or not required by law. Electronically signed by: Seun Whitley M.D. 03/08/2024 5:20 PM Brain MRI 03/08/24 18:53 Exam(s): MRI HEAD Without Contrast EXAM: MR Head Without Intravenous Contrast CLINICAL HISTORY: Reason for exam: dysdiadochokinesia ?CVA. TECHNIQUE: Magnetic resonance images of the head/brain without intravenous contrast in multiple planes. COMPARISON: Prior head CT from March 08, 2024. FINDINGS: Brain: Minimal nonspecific white matter changes. No mass. No hemorrhage. No acute infarct. The flow voids of the base of the brain are intact. Ventricles: Unremarkable. No ventriculomegaly. Bones/joints: Unremarkable. No acute fracture. Sinuses: Chronic maxillary and ethmoid sinusitis. No acute sinusitis. Mastoid air cells: Unremarkable as visualized. No mastoid effusion. Orbits: Unremarkable as visualized. IMPRESSION: No evidence of acute intracranial pathology. Electronically signed by: Amy Angelo MD 03/09/24 02:06 AM PG Care Time/CCT Total # of Minutes Spent Total Time Spent with Patient: Total time spent is greater than 50% in coordination of care (as documented) at patient's floor/unit and/or counseling patient: Coding Level of Care Code 73714 SUB INP/OBS CARE 3/50MIN Diagnoses Confusion R41.0 Deep venous thrombosis (DVT) of right peroneal vein, unspecified chronicity I82.451 Affected thrombotic vein of extremity: peroneal Chronicity: unspecified DVT location: lower extremity Laterality: right Hx of falling Z91.81 Type 2 diabetes mellitus without complication, without long-term current use of insulin E11.9 Diabetes mellitus complication status: without complication Diabetes mellitus chcf insulin use: without chcf use UTI (urinary tract infection) N30.00 Hematuria presence: without hematuria Urinary tract infection type: acute cystitis Hypomagnesemia E83.42 (2) DVT (deep venous thrombosis) Affected thrombotic vein of extremity: peroneal Chronicity: unspecified DVT location: lower extremity Laterality: right Qualified Code(s): I82.451 - Acute embolism and thrombosis of right peroneal vein (4) Type 2 diabetes mellitus Diabetes mellitus complication status: without complication Diabetes mellitus predatory animal exterminator insulin use: without chcf use Qualified Code(s): E11.9 - Type 2 diabetes mellitus without complications (5) UTI (urinary tract infection) Hematuria presence: without hematuria Urinary tract infection type: acute cystitis Qualified Code(s): N30.00 - Acute cystitis without hematuria
[2024-03-09] MEDS: SODIUM CHLORIDE 5% (MURO) OP OINT 3.5 GM TUBE OP SCH (11:44)
[2024-03-09] MEDS: POLYETHYLENE (MIRALAX) 17 GM PACK PO SCH (11:45)
--- NOTE | 2024-03-09 12:26 | Pharmacy Report ---
Pharmacy Glycemic Short Note 2 - Date of Service March 09, 2024 - Glycemic Short BSG Results (Last 24 hours): 03/08/24 03/08/24 03/09/24 11:59 19:44 05:48 Glucose 123 H 93 POC Glucose 71 03/09/24 12:16 Glucose POC Glucose 109 H OUTPATIENT ANTIDIABETIC REGIMEN: * metformin 250 mg PO BIDM * Mounjaro 2.5 mg SC weekly HbA1c: 6.2% (03/09/24) ASSESSMENT: * is a 73 year old female who presented to [facility] ED on 03/08 following a fall * Well-controlled T2DM on metformin and Mounjaro * Blood sugars have been well-controlled thus far with minimal insulin * T2DM diet ordered PLAN FOR INPATIENT GLYCEMIC CONTROL: * Hold outpatient oral diabetes medications * Basal insulin * hold * Bolus insulin * NovoLog per scale ACHS or Q6hrs while NPO * Goal Range: Low 120 mg/dL - High 150 mg/dL * Correction Factor: 35 mg/dL/unit * Nutritional / Prandial insulin per carb ratio of 1 unit per 12 grams CHO consumed
[2024-03-09] MEDS: cefTRIAXone SODIUM 2,000 MG/50 ML BAG IV SCH (14:45)
[2024-03-09] MEDS: HEPARIN SOD 5,000 UNIT/0.5 ML VIAL SQ SCH (20:39)
[2024-03-10] MEDS ORDERED: MICONAZOLE NITRATE POWDER 85 GM EXT PRN (05:04)
[2024-03-10 07:18] LABS: Basophils # (auto) 0.03 K/uL (0.00-0.20); Basophils % (auto) 0.5 %; Eosinophils # (auto) 0.61 K/uL (0.00-0.50); Eosinophils % (auto) 9.2 %; Hematocrit (blood only) 33.9 % (37.0-47.0); Immature Granulocytes # (auto) 0.07 K/uL (0.01-0.20); Immature Granulocytes % (auto) 1.1 %; Lymphocytes # (auto) 1.63 K/uL (1.20-3.40); Lymphocytes % (auto) 24.5 %; Mean Corpuscular Hemoglobin 28.9 pg (25.0-34.0); Mean Corpuscular Hgb Conc 32.4 g/dL (32.0-36.0); Mean Corpuscular Volume 89.2 fL (80.0-100.0); Mean Platelet Volume 9.2 fL (9.4-12.4); Monocytes # (auto) 0.58 K/uL (0.11-0.59); Monocytes % (auto) 8.7 %; Neutrophils # (auto) 3.74 K/uL (1.40-6.50); Platelet Count 234 K/uL (130-400); RDW Coefficient of Variation 12.9 % (11.5-14.5); RDW Standard Deviation 42.1 fL (36.4-46.3); White Blood Count 6.66 K/ul (4.8-10.8)
[2024-03-10 07:40] LABS: Calcium 8.3 mg/dl (8.6-10.3); Creatinine Clr Calc Pharmacy 85.2 ml/min; Est GFR (African American) 92.9 ml/min; Est GFR (Non-African American) 80.2 ml/min; Potassium 3.9 mmol/L (3.5-5.1)
--- NOTE | 2024-03-10 12:28 | Pharmacy Report ---
Pharmacy Glycemic Sign Off Nt - Date of Service March 10, 2024 - Assessment & Plan ASSESSMENT: * Patient has a good outpatient A1c on two non-insulin agents as an outpatient. * Novolog monotherapy ordered here w relatively loose parameters. * Patient has received a total of 11 units of insulin w BSG's ranging from 93- 111 mg/dL over the last 24 hours. * Pharmacy is signing off now - Arlen Alfaro aware PLAN FOR INPATIENT GLYCEMIC CONTROL: No changes needed to current regimen. * Continue NovoLog per scale ACHS/Q6hrs while NPO * Goal range = 120 150 mg/dl * CF = 35 mg/dl/unit * CR = 1 unit for ever 12 g CHO consumed * Pharmacy is signing off of glycemic consult and will no longer be making adjustments to inpatient regimen. Please feel free to re-consult if needed. Thank you.
--- NOTE | 2024-03-10 12:31 | Hospitalist Progress Note ---
Date of Service March 10, 2024 Assessment & Plan (1) Confusion: Plan: This is a 73 year old female with past medical history of type 2 diabetes, lower extremity venous stasis, urinary incontinence who presented to the ED on 03/08 with chief complaint of confusion. 1.) Metabolic encephalopathy in setting of UTI and electrolyte deficiency (Hypokalemia and hypomagnesemia) -Urinalysis positive for UTI -Given 2g Rocephin in ED -plan to continue 03/09 - urine cultures: E. Coli -CXR reviewed, negative -head/neck CTA reviewed, negative -brain MRI reviewed 03/09: negative -CBC reviewed 03/10, WBC WNL, hgb 11 -BMP reviewed 03/10,WNL -B12 reviewed 03/09: WNL -TSH reviewed : elevated at 5.618 with normal T4 of 0.92 AM labs include CBC, BMP, Magnesium (2) DVT (deep venous thrombosis): Plan: Patient endorses chronic history of venous stasis and episodes of cellulitis. Denies recent abx use. -b/l doppler positive for DVT in right lower extremity. -did not state chronic vs acute -patient asymptomatic -Heparin BID (3) Hx of falling: Plan: PT/OT consulted and reviewed 03/09 -recommended rehab (4) Type 2 diabetes mellitus: Plan: -Pharmacy consulted, appreciate recommendations -on home Tirzepatide injections and metformin -hold while inpatient -hemoglobin A1c 03/09: 6.2 (5) UTI (urinary tract infection): Plan: see confusion plan (6) Hypomagnesemia: Plan: Upon admission to ED magnesium found to be low at 1.5 -reviewed magnesium 03/09: WNL at 2. AM Magnesium Plan Pressure ulcer of right buttock, stage 2 POA wound nurse consulted Constipation: added 1 capful Miralax daily. -patient has bidirectional endoscopy set for May per patient. Chronic conditions: Hypertension: HCTZ, lisinopril, metoprolol Hypothyroidism: Levothyroxine Asthma/allergies: montelukast, loratadine, albuterol prn hyperlipidemia: simvastatin GERD: Omeprazole Anxiety/depression: venlafaxine Disposition: medical, awaiting bed placement for inpatient rehab Diet: heart heathy, carb consistent Code status: full DVT prophylaxis: Heparin BID Admission and Anticipated Discharge Date Admission Date: March 08, 2024 Supervising Physician Co-Signing Physician Notes The patient was not seen by me. The chart was reviewed. Case discussed with ROSEANN Estrella. Agree with assessment and plan Subjective Patient seen and examined this morning. Patient AxOx3. Patient denies any complaints today. She denies chest pain, shortness of breath, and leg pain. Physical Exam 2 Constitutional: WD/WN, vitals as above Eyes: PERRL, conjunctivae normal, anicteric sclerae Respiratory: normal respiratory effort, lungs clear to auscultation Cardiovascular: RRR, no murmur, no edema Skin: no rashes, warm and dry Psychiatric: A+Ox3, euthymic affect Results & Data Results & Data Vital Signs (Past 12 Hours) Vital Signs Temp Pulse Pulse Resp BP Pulse Ox O2 Del Method 03/10/24 11:48 36.7 C 71 18 127/81 94 Room Air 03/10/24 10:50 Room Air 03/10/24 07:44 36.6 C 83 18 125/65 93 Room Air 03/10/24 07:24 83 03/10/24 02:59 36.9 C 87 16 123/63 94 Room Air Laboratory Results 03/10/24 06:35 03/10/24 06:35 PG Care Time/CCT Total # of Minutes Spent Total Time Spent with Patient: Total time spent is greater than 50% in coordination of care (as documented) at patient's floor/unit and/or counseling patient: Coding Level of Care Code 16182 SUB INP/OBS CARE 2/35MIN Diagnoses Confusion R41.0 Deep venous thrombosis (DVT) of right peroneal vein, unspecified chronicity I82.451 Affected thrombotic vein of extremity: peroneal Chronicity: unspecified DVT location: lower extremity Laterality: right Hx of falling Z91.81 Type 2 diabetes mellitus without complication, without long-term current use of insulin E11.9 Diabetes mellitus complication status: without complication Diabetes mellitus shelter insulin use: without shelter use UTI (urinary tract infection) N30.00 Hematuria presence: without hematuria Urinary tract infection type: acute cystitis Hypomagnesemia E83.42 (2) DVT (deep venous thrombosis) Affected thrombotic vein of extremity: peroneal Chronicity: unspecified DVT location: lower extremity Laterality: right Qualified Code(s): I82.451 - Acute embolism and thrombosis of right peroneal vein (4) Type 2 diabetes mellitus Diabetes mellitus complication status: without complication Diabetes mellitus equipment operator intermodal yard insulin use: without equipment operator intermodal yard use Qualified Code(s): E11.9 - Type 2 diabetes mellitus without complications (5) UTI (urinary tract infection) Hematuria presence: without hematuria Urinary tract infection type: acute cystitis Qualified Code(s): N30.00 - Acute cystitis without hematuria
[2024-03-11 06:48] LABS: Basophils # (auto) 0.03 K/uL (0.00-0.20); Basophils % (auto) 0.4 %; Eosinophils # (auto) 0.53 K/uL (0.00-0.50); Eosinophils % (auto) 7.9 %; Hematocrit (blood only) 33.2 % (37.0-47.0); Hemoglobin 10.8 g/dl (12.0-16.0); Immature Granulocytes # (auto) 0.04 K/uL (0.01-0.20); Immature Granulocytes % (auto) 0.6 %; Lymphocytes # (auto) 1.69 K/uL (1.20-3.40); Lymphocytes % (auto) 25.2 %; Mean Corpuscular Hemoglobin 29.2 pg (25.0-34.0); Mean Corpuscular Hgb Conc 32.5 g/dL (32.0-36.0); Mean Corpuscular Volume 89.7 fL (80.0-100.0); Mean Platelet Volume 9.1 fL (9.4-12.4); Neutrophils # (auto) 3.81 K/uL (1.40-6.50); Neutrophils % (auto) 56.9 %; Platelet Count 254 K/uL (130-400); RDW Coefficient of Variation 12.6 % (11.5-14.5)
[2024-03-11 07:07] LABS: BUN Creatinine Ratio 16.7 (10-20); Calcium 8.5 mg/dl (8.6-10.3); Creatinine Clr Calc Pharmacy 76.7 ml/min; Est GFR (Non-African American) 69.9 ml/min; Potassium 4.1 mmol/L (3.5-5.1)
--- NOTE | 2024-03-11 14:19 | Hospitalist Progress Note ---
Date of Service March 11, 2024 Assessment & Plan (1) Confusion: Plan: This is a 73 year old female with past medical history of type 2 diabetes, lower extremity venous stasis, urinary incontinence who presented to the ED on 03/08 with chief complaint of confusion. 1.) Metabolic encephalopathy in setting of UTI and electrolyte deficiency (Hypokalemia and hypomagnesemia) -Urinalysis positive for UTI -Given 2g Rocephin in ED -plan to continue 03/09 - urine cultures: E. Coli -CXR reviewed, negative -head/neck CTA reviewed, negative -brain MRI reviewed 03/09: negative -CBC reviewed 03/11, WBC WNL, hgb 10.8 -BMP reviewed 03/11,WNL -B12 reviewed 03/09: WNL -TSH reviewed : elevated at 5.618 with normal T4 of 0.92 AM labs include CBC, BMP (2) DVT (deep venous thrombosis): Plan: Patient endorses chronic history of venous stasis and episodes of cellulitis. Denies recent abx use. -b/l doppler positive for DVT in right lower extremity. -did not state chronic vs acute -patient did endorse right leg pain prior to hospitalization -Heparin BID (3) Hx of falling: Plan: PT/OT consulted and reviewed 03/09 -recommended rehab, awaiting insurance auth (4) Type 2 diabetes mellitus: Plan: -Pharmacy consulted, appreciate recommendations -on home Tirzepatide injections and metformin -hold while inpatient -hemoglobin A1c 03/09: 6.2 (5) UTI (urinary tract infection): Plan: see confusion plan (6) Hypomagnesemia: Plan: Upon admission to ED magnesium found to be low at 1.5 -reviewed magnesium 03/09: WNL at 2. AM Magnesium Plan Pressure ulcer of right buttock, stage 2 POA wound nurse consulted -stoma powder to open areas and cover with barrier cream BID or prn, shift weight every 30 minutes to offload pressure Constipation: added 1 capful Miralax daily. -patient has bidirectional endoscopy set for May per patient. Chronic conditions: Hypertension: HCTZ, lisinopril, metoprolol Hypothyroidism: Levothyroxine Asthma/allergies: montelukast, loratadine, albuterol prn hyperlipidemia: simvastatin GERD: Omeprazole Anxiety/depression: venlafaxine Disposition: medical, awaiting bed placement for inpatient rehab Diet: heart heathy, carb consistent Code status: full DVT prophylaxis: Heparin BID spoke with patient's sister on phone 03/11. Admission and Anticipated Discharge Date Admission Date: March 08, 2024 Supervising Physician Co-Signing Physician Notes The patient was not seen by me. The chart was reviewed. Case discussed with ROSEANN Estrella. Agree with assessment and plan Subjective Patient seen and examined this morning. Patient reported to be doing well today. Spoke with patients sister on the phone who states she was having right sided leg pain prior to her hospitalization. Patient also could recall this today. She denied any confusion. She was able to ambulate with PT today as well. Physical Exam 2 Constitutional: WD/WN, vitals as above Eyes: PERRL, conjunctivae normal, anicteric sclerae Respiratory: normal respiratory effort, lungs clear to auscultation Cardiovascular: RRR, no murmur, no edema (b/l venous stasis) Skin: no rashes, warm and dry Psychiatric: A+Ox3, euthymic affect Results & Data Results & Data Vital Signs (Past 12 Hours) Vital Signs Temp Pulse Resp BP Pulse Ox O2 Del Method 03/11/24 07:28 36.7 C 79 18 128/76 94 Room Air 03/11/24 03:08 36.8 C 81 16 122/68 92 Room Air Laboratory Results 03/11/24 06:04 03/11/24 06:04 PG Care Time/CCT Total # of Minutes Spent Total Time Spent with Patient: Total time spent is greater than 50% in coordination of care (as documented) at patient's floor/unit and/or counseling patient: Coding Level of Care Code 60591 SUB INP/OBS CARE 3/50MIN Diagnoses Confusion R41.0 Deep venous thrombosis (DVT) of right peroneal vein, unspecified chronicity I82.451 Affected thrombotic vein of extremity: peroneal Chronicity: unspecified DVT location: lower extremity Laterality: right Hx of falling Z91.81 Type 2 diabetes mellitus without complication, without long-term current use of insulin E11.9 Diabetes mellitus complication status: without complication Diabetes mellitus care home insulin use: without care home use UTI (urinary tract infection) N30.00 Hematuria presence: without hematuria Urinary tract infection type: acute cystitis Hypomagnesemia E83.42 (2) DVT (deep venous thrombosis) Affected thrombotic vein of extremity: peroneal Chronicity: unspecified DVT location: lower extremity Laterality: right Qualified Code(s): I82.451 - Acute embolism and thrombosis of right peroneal vein (4) Type 2 diabetes mellitus Diabetes mellitus complication status: without complication Diabetes mellitus petroleum terminal plant operator insulin use: without petroleum terminal plant operator use Qualified Code(s): E11.9 - Type 2 diabetes mellitus without complications (5) UTI (urinary tract infection) Hematuria presence: without hematuria Urinary tract infection type: acute cystitis Qualified Code(s): N30.00 - Acute cystitis without hematuria
[2024-03-12 01:43] LABS: Partial Thromboplastin Time 27 Seconds (21-31); Prothrombin Time 11.3 Seconds (9.0-12.0)
[2024-03-12] MEDS: Heparin IV Adult Wt-Based Standard *NO* INITIAL Bolus Protocol IV STA (02:01)
[2024-03-12] MEDS: HEPARIN SODIUM/DEXTROSE 25,000 UNITS/500 ML BAG IV SCH (02:05)
[2024-03-12 08:55] LABS: Basophils # (auto) 0.05 K/uL (0.00-0.20); Basophils % (auto) 0.6 %; Eosinophils # (auto) 0.36 K/uL (0.00-0.50); Eosinophils % (auto) 4.6 %; Hematocrit (blood only) 34.6 % (37.0-47.0); Hemoglobin 11.2 g/dl (12.0-16.0); Immature Granulocytes # (auto) 0.04 K/uL (0.01-0.20); Immature Granulocytes % (auto) 0.5 %; Lymphocytes # (auto) 1.24 K/uL (1.20-3.40); Mean Corpuscular Hemoglobin 28.7 pg (25.0-34.0); Mean Corpuscular Hgb Conc 32.4 g/dL (32.0-36.0); Mean Corpuscular Volume 88.7 fL (80.0-100.0); Mean Platelet Volume 8.8 fL (9.4-12.4); Monocytes # (auto) 0.56 K/uL (0.11-0.59); Monocytes % (auto) 7.2 %; Neutrophils % (auto) 71.1 %; Platelet Count 261 K/uL (130-400); RDW Coefficient of Variation 12.6 % (11.5-14.5); RDW Standard Deviation 40.6 fL (36.4-46.3); White Blood Count 7.75 K/ul (4.8-10.8)
[2024-03-12 09:09] LABS: BUN Creatinine Ratio 20.2 (10-20); Calcium 8.9 mg/dl (8.6-10.3); Creatinine Clr Calc Pharmacy 71.3 ml/min; Est GFR (African American) 75.6 ml/min; Est GFR (Non-African American) 65.2 ml/min; Potassium 4.1 mmol/L (3.5-5.1)
[2024-03-12 09:22] LABS: ANTI-Xa, UFH(UnfractionatedHep 0.26 IU/ml (0.3-0.7); INR 1.1 (0.9-1.1); Partial Thromboplastin Ratio 1.3; Partial Thromboplastin Time 36 Seconds (21-31); Prothrombin Time 11.4 Seconds (9.0-12.0)
--- NOTE | 2024-03-12 11:20 | Hospitalist Progress Note ---
Date of Service March 12, 2024 Assessment & Plan (1) Confusion: Plan: This is a 73 year old female with past medical history of type 2 diabetes, lower extremity venous stasis, urinary incontinence who presented to the ED on 03/08 with chief complaint of confusion. 1.) Metabolic encephalopathy in setting of UTI and electrolyte deficiency (Hypokalemia and hypomagnesemia) -Urinalysis positive for UTI -Given 2g Rocephin in ED -plan to continue 03/09 - 03/14 - urine cultures: E. Coli -CXR reviewed, negative -head/neck CTA reviewed, negative -brain MRI reviewed 03/09: negative -CBC reviewed 03/12, WBC WNL, hgb 11.2 -BMP reviewed 03/12,stable -B12 reviewed 03/09: WNL -TSH reviewed : elevated at 5.618 with normal T4 of 0.92 AM labs include CBC, BMP (2) DVT (deep venous thrombosis): Plan: Patient endorses chronic history of venous stasis and episodes of cellulitis. Denies recent abx use. -b/l doppler positive for DVT in right lower extremity. -did not state chronic vs acute -patient did complain of right leg pain prior to hospitalization but also has chronic leg pain and recent fall exacerbating it b/l -improved -heparin drip, plan to transition to PO anticoagulation (3) Hx of falling: Plan: PT/OT consulted and reviewed 03/09 -recommended rehab, awaiting insurance auth (4) Type 2 diabetes mellitus: Plan: -Pharmacy consulted, appreciate recommendations -on home Tirzepatide injections and metformin -hold while inpatient -hemoglobin A1c 03/09: 6.2 (5) UTI (urinary tract infection): Plan: see confusion plan (6) Hypomagnesemia: Plan: Upon admission to ED magnesium found to be low at 1.5 -reviewed magnesium 03/09: WNL at 2. AM Magnesium Plan Pressure ulcer of right buttock, stage 2 POA wound nurse consulted -stoma powder to open areas and cover with barrier cream BID or prn, shift weight every 30 minutes to offload pressure Constipation: added 1 capful Miralax daily. -patient has bidirectional endoscopy set for May per patient. Chronic conditions: Hypertension: lisinopril, metoprolol Hypothyroidism: Levothyroxine Asthma/allergies: montelukast, loratadine, albuterol prn hyperlipidemia: simvastatin GERD: Omeprazole Anxiety/depression: venlafaxine Disposition: medical, awaiting bed placement for inpatient rehab Diet: heart heathy, carb consistent Code status: full DVT prophylaxis: Heparin drip Admission and Anticipated Discharge Date Admission Date: March 08, 2024 Supervising Physician Co-Signing Physician Notes The patient was not seen by me. The chart was reviewed. Case discussed with ROSEANN Estrella. Agree with assessment and plan Subjective Patient seen and examined this morning. Patient reported to be feeling well today. She denied any complaints. She denied chest pain, SOB, or leg pain. Reports she did not sleep as well as she had been last night. Physical Exam 2 Constitutional: WD/WN, vitals as above Eyes: PERRL, conjunctivae normal, anicteric sclerae Respiratory: normal respiratory effort, lungs clear to auscultation Cardiovascular: RRR, mild b/l lower extremity edema and chronic venous stasis Skin: no rashes, warm and dry Psychiatric: A+Ox3, euthymic affect Results & Data Results & Data Vital Signs (Past 12 Hours) Vital Signs Temp Pulse Resp BP Pulse Ox O2 Del Method 03/12/24 07:25 36.7 C 93 H 18 161/72 H 95 Room Air Laboratory Results 03/12/24 08:32 03/12/24 08:32 PG Care Time/CCT Total # of Minutes Spent Total Time Spent with Patient: Total time spent is greater than 50% in coordination of care (as documented) at patient's floor/unit and/or counseling patient: Coding Level of Care Code 39179 SUB INP/OBS CARE 2/35MIN Diagnoses Confusion R41.0 Deep venous thrombosis (DVT) of right peroneal vein, unspecified chronicity I82.451 Affected thrombotic vein of extremity: peroneal Chronicity: unspecified DVT location: lower extremity Laterality: right Hx of falling Z91.81 Type 2 diabetes mellitus without complication, without long-term current use of insulin E11.9 Diabetes mellitus complication status: without complication Diabetes mellitus exterminator termite insulin use: without exterminator termite use UTI (urinary tract infection) N30.00 Hematuria presence: without hematuria Urinary tract infection type: acute cystitis Hypomagnesemia E83.42 (2) DVT (deep venous thrombosis) Affected thrombotic vein of extremity: peroneal Chronicity: unspecified DVT location: lower extremity Laterality: right Qualified Code(s): I82.451 - Acute embolism and thrombosis of right peroneal vein (4) Type 2 diabetes mellitus Diabetes mellitus complication status: without complication Diabetes mellitus exterminator termite insulin use: without exterminator termite use Qualified Code(s): E11.9 - Type 2 diabetes mellitus without complications (5) UTI (urinary tract infection) Hematuria presence: without hematuria Urinary tract infection type: acute cystitis Qualified Code(s): N30.00 - Acute cystitis without hematuria
[2024-03-12 17:07] LABS: ANTI-Xa, UFH(UnfractionatedHep 0.28 IU/ml (0.3-0.7)
[2024-03-13 06:56] LABS: Hematocrit (blood only) 36.3 % (37.0-47.0); Hemoglobin 12.3 g/dl (12.0-16.0); Mean Corpuscular Hemoglobin 30.2 pg (25.0-34.0); Mean Corpuscular Hgb Conc 33.9 g/dL (32.0-36.0); Mean Corpuscular Volume 89.2 fL (80.0-100.0); Platelet Count 270 K/uL (130-400); RDW Coefficient of Variation 12.8 % (11.5-14.5); RDW Standard Deviation 41.1 fL (36.4-46.3); Red Blood Count 4.07 M/uL (4.20-5.40); White Blood Count 8.22 K/ul (4.8-10.8)
[2024-03-13 07:38] LABS: BUN Creatinine Ratio 24.4 (10-20); Calcium 9.1 mg/dl (8.6-10.3); Creatinine Clr Calc Pharmacy 77.4 ml/min; Est GFR (African American) 83.4 ml/min; Magnesium 1.7 mg/dl (1.7-2.4)
[2024-03-13 07:43] LABS: ANTI-Xa, UFH(UnfractionatedHep 0.45 IU/ml (0.3-0.7)
[2024-03-13] MEDS: RIVAROXABAN 15 MG TAB PO SCH (12:41)
--- NOTE | 2024-03-13 13:55 | Hospitalist Progress Note ---
Date of Service March 13, 2024 Assessment & Plan (1) Confusion: Plan: This is a 73 year old female with past medical history of type 2 diabetes, lower extremity venous stasis, urinary incontinence who presented to the ED on 03/08 with chief complaint of confusion. 1.) Metabolic encephalopathy in setting of UTI and electrolyte deficiency (Hypokalemia and hypomagnesemia) -Urinalysis positive for UTI -Given 2g Rocephin in ED -plan to continue 03/09 - 03/14 - urine cultures: E. Coli -CXR reviewed, negative -head/neck CTA reviewed, negative -brain MRI reviewed 03/09: negative -CBC reviewed 03/13, WBC WNL, hgb 12.3 -BMP reviewed 03/13,stable -B12 reviewed 03/09: WNL -TSH reviewed : elevated at 5.618 with normal T4 of 0.92 AM labs include CBC, BMP (2) DVT (deep venous thrombosis): Plan: Patient endorses chronic history of venous stasis and episodes of cellulitis. Denies recent abx use. -b/l doppler positive for DVT in right lower extremity. -did not state chronic vs acute -patient did complain of right leg pain prior to hospitalization but also has chronic leg pain and recent fall exacerbating it b/l -improved -heparin drip, plan to transition to PO anticoagulation -transitioned to PO Xarelto 03/13. (3) Hx of falling: Plan: PT/OT consulted and reviewed 03/09 -recommended rehab, awaiting insurance auth (4) Type 2 diabetes mellitus: Plan: -Pharmacy consulted, appreciate recommendations -on home Tirzepatide injections and metformin -hold while inpatient -hemoglobin A1c 03/09: 6.2 (5) UTI (urinary tract infection): Plan: see confusion plan (6) Hypomagnesemia: Plan: Upon admission to ED magnesium found to be low at 1.5 -reviewed magnesium 03/13: WNL at 1.7 AM Magnesium Plan Pressure ulcer of right buttock, stage 2 POA wound nurse consulted -stoma powder to open areas and cover with barrier cream BID or prn, shift weight every 30 minutes to offload pressure Constipation: added 1 capful Miralax daily. -patient has bidirectional endoscopy set for May per patient. Chronic conditions: Hypertension: lisinopril, metoprolol Hypothyroidism: Levothyroxine Asthma/allergies: montelukast, loratadine, albuterol prn hyperlipidemia: simvastatin GERD: Omeprazole Anxiety/depression: venlafaxine Disposition: medical, awaiting bed placement for inpatient rehab Diet: heart heathy, carb consistent Code status: full DVT prophylaxis: Xarelto Admission and Anticipated Discharge Date Admission Date: March 08, 2024 Supervising Physician Co-Signing Physician Notes The patient was not seen by me. The chart was reviewed. Case discussed with ROSEANN Estrella. Agree with assessment and plan Subjective Patient seen and examined this afternoon. Patient reports to be feeling well and denies any complaints. She denies chest pain, SOB, leg pain Physical Exam 2 Constitutional: WD/WN, vitals as above Eyes: PERRL, conjunctivae normal, anicteric sclerae Respiratory: normal respiratory effort, lungs clear to auscultation Cardiovascular: RRR, no murmur, no edema Skin: no rashes, warm and dry Results & Data Results & Data Vital Signs (Past 12 Hours) Vital Signs Temp Pulse Resp BP Pulse Ox O2 Del Method 03/13/24 07:14 36.6 C 79 14 127/76 98 Room Air Laboratory Results 03/13/24 06:24 03/13/24 06:24 PG Care Time/CCT Total # of Minutes Spent Total Time Spent with Patient: Total time spent is greater than 50% in coordination of care (as documented) at patient's floor/unit and/or counseling patient: Coding Level of Care Code 83532 SUB INP/OBS CARE 2/35MIN Diagnoses Confusion R41.0 Deep venous thrombosis (DVT) of right peroneal vein, unspecified chronicity I82.451 Affected thrombotic vein of extremity: peroneal Chronicity: unspecified DVT location: lower extremity Laterality: right Hx of falling Z91.81 Type 2 diabetes mellitus without complication, without long-term current use of insulin E11.9 Diabetes mellitus complication status: without complication Diabetes mellitus group home insulin use: without group home use UTI (urinary tract infection) N30.00 Hematuria presence: without hematuria Urinary tract infection type: acute cystitis Hypomagnesemia E83.42 (2) DVT (deep venous thrombosis) Affected thrombotic vein of extremity: peroneal Chronicity: unspecified DVT location: lower extremity Laterality: right Qualified Code(s): I82.451 - Acute embolism and thrombosis of right peroneal vein (4) Type 2 diabetes mellitus Diabetes mellitus complication status: without complication Diabetes mellitus manager terminal insulin use: without group home use Qualified Code(s): E11.9 - Type 2 diabetes mellitus without complications (5) UTI (urinary tract infection) Hematuria presence: without hematuria Urinary tract infection type: acute cystitis Qualified Code(s): N30.00 - Acute cystitis without hematuria
[2024-03-14 07:45] LABS: Basophils # (auto) 0.06 K/uL (0.00-0.20); Basophils % (auto) 0.7 %; Eosinophils # (auto) 0.31 K/uL (0.00-0.50); Eosinophils % (auto) 3.6 %; Hematocrit (blood only) 37.4 % (37.0-47.0); Hemoglobin 12.4 g/dl (12.0-16.0); Immature Granulocytes # (auto) 0.05 K/uL (0.01-0.20); Immature Granulocytes % (auto) 0.6 %; Lymphocytes # (auto) 1.67 K/uL (1.20-3.40); Lymphocytes % (auto) 19.5 %; Mean Corpuscular Hemoglobin 29.4 pg (25.0-34.0); Mean Corpuscular Hgb Conc 33.2 g/dL (32.0-36.0); Mean Corpuscular Volume 88.6 fL (80.0-100.0); Monocytes # (auto) 0.67 K/uL (0.11-0.59); Monocytes % (auto) 7.8 %; Neutrophils # (auto) 5.82 K/uL (1.40-6.50); Neutrophils % (auto) 67.8 %; Platelet Count 287 K/uL (130-400); RDW Coefficient of Variation 13.2 % (11.5-14.5); RDW Standard Deviation 41.8 fL (36.4-46.3); Red Blood Count 4.22 M/uL (4.20-5.40); White Blood Count 8.58 K/ul (4.8-10.8)
[2024-03-14 08:07] LABS: BUN Creatinine Ratio 23.5 (10-20); Calcium 9.2 mg/dl (8.6-10.3); Creatinine Clr Calc Pharmacy 74.7 ml/min; Est GFR (African American) 79.9 ml/min; Est GFR (Non-African American) 68.9 ml/min; Potassium 3.9 mmol/L (3.5-5.1)
--- NOTE | 2024-03-14 12:32 | Discharge Summary ---
Discharge Summary Date of Service March 14, 2024 Principal Dx & Hospital Course #1 = Principal Diagnosis (1) Confusion: Metabolic encephalopathy in setting of UTI and electrolyte deficiency (Hypokalemia and hypomagnesemia) This is a 73 year old female with past medical history of type 2 diabetes, lower extremity venous stasis, urinary incontinence who presented to the ED on 03/08 with chief complaint of confusion. -Urinalysis positive for UTI, UC grew e.coli. Completed Course of Ceftriaxone -CXR: no acute process -head/neck CTA : no acute abnormality -brain MRI: no acute intracranial abnormality -B12 reviewed: WNL -TSH reviewed: elevated at 5.618 with normal T4 of 0.92 Confusion improved PT/OT - recommend rehab, discharge to [facility] today (2) DVT (deep venous thrombosis): Patient endorses chronic history of venous stasis and episodes of cellulitis. Denies recent abx use. -b/l doppler positive for DVT in right lower extremity. -did not state chronic vs acute -heparin transitioned to Xarelto 03/13 (continue BID dosing x 21 days 03/13- 04/03) - compression stocking, heat for pain Possibly related to underlying malignancy - encouraged follow up with Oncologist (3) Type 2 diabetes mellitus: -Continue home Tirzepatide injections and metformin at discharge -hemoglobin A1c 03/09: 6.2 (4) Hypomagnesemia: Upon admission to ED magnesium found to be low at 1.5 Received replacement Resolved Plan Pressure ulcer of right buttock, stage 2 POA wound nurse consulted -stoma powder to open areas and cover with barrier cream BID or prn, shift weight every 30 minutes to offload pressure Constipation: added 1 capful Miralax daily. -patient has bidirectional endoscopy set for May per patient. Chronic conditions: Hypertension: lisinopril, metoprolol Hypothyroidism: Levothyroxine Asthma/allergies: montelukast, loratadine, albuterol prn hyperlipidemia: simvastatin GERD: Omeprazole Anxiety/depression: venlafaxine Disposition: discharge to [facility] today Left for family 03/14 Notes For Next Care Provider Admitted with confusion found to have UTI, completed course of ABX while inpatient. Found to have DVT - should have follow up with oncologist. Started on Xarelto. Medication Changes From Visit Xarelto BID x 21 DAYS Admission HPI Per Admitting Provider This is a 73 year old female with past medical history of type 2 diabetes, lower extremity venous stasis, urinary incontinence who presented to the ED on 03/08 with chief complaint of confusion. Patient was relatively poor historian. Sister was present at bedside. Patient reports she has sustained several falls over the last month. She states that she has called the ambulance twice for help off the floor but does not believe she was evaluated. she struck her head on a fall about 1-2 weeks ago. She also reports about a month ago she fell and has been experiencing right arm numbness since. She reports no pain in her upper extremities. She has chronic venous stasis of her lower extremities and a history of cellulitis. She has also had worsening confusion over the last month. She states the other day she reported to her daughters at 2am to babysit instead of 2pm. she was confused why lights were off in the house so she sat in her car for 3 hours and cleaned out her purse. She reports occasional headaches. She reports constipation as well and states her stools are like ihsan. She denies nausea or vomiting. She denied any urinary complaints. She states she has chronic frequent urination but attributes this to medication she is on. She states she takes "a lot" of medications daily but could not recall what they were. She denied chest pain or shortness of breath. Denied any hearing or visual deficits. She denies recent illness or antibiotic use. Discharge Exam General: NAD, VS as above Resp: normal respiratory effort, lungs clear to auscultation CV: RRR, no murmur, Abd: normal bowel sounds, non tender, no hepatosplenomegaly Extremities: Moves all extremities, 2+ edema Right LE Neuro: A&O x3, Updated Medication List Medication Instructions Recorded Confirmed Type oeibtcvl-qmp-[id number] acid 0.4 1 tab PO QAM 02/05/19 03/08/24 History mg-lycopene 300 mcg-lutein 250 mcg tablet (Centrum Silver) loratadine 10 mg tablet (Claritin) 10 mg PO QAM #90 tabs 10/01/21 03/08/24 Rx lancing device with lancets kit #1 ea 01/14/22 03/08/24 Rx (Accu-Chek FastClix Lancing Device kit) lancets (Accu-Chek Fastclix Lancet #200 ea 02/03/22 03/08/24 Rx Drum) albuterol sulfate 90 mcg/actuation 2 puff inhalation QID PRN sob #18 02/16/23 03/08/24 Rx aerosol inhaler (Ventolin HFA) grams blood sugar diagnostic (Accu-Chek #100 ea 04/21/23 03/08/24 Rx Guide test strips) metformin 500 mg tablet 250 mg (1/2 x 500 mg) PO BID #90 08/24/23 03/08/24 Rx tabs omeprazole 20 mg capsule,delayed 40 mg (2 x 20 mg) PO DAILY #180 09/22/23 03/08/24 Rx release caps montelukast 10 mg tablet 10 mg PO QPM #90 tabs 10/19/23 03/08/24 Rx (Singulair) hydrochlorothiazide 25 mg tablet 25 mg PO QAM #90 tabs 11/16/23 03/08/24 Rx simvastatin 40 mg tablet (Zocor) 40 mg PO HS hypercholesterolemia 11/16/23 03/08/24 Rx #90 tabs omega 9-juf-ntt-fish oil 1,000 mg 1 cap PO QAM 11/18/23 03/08/24 History (120 mg-180 mg) capsule (Fish Oil) tirzepatide 2.5 mg/0.5 mL 2.5 mg (0.5 mL) subcut Q7D #2 mL 11/30/23 03/08/24 Rx subcutaneous pen injector (Rupert) lisinopril 20 mg tablet 10 mg PO QAM 12/04/23 03/08/24 History metoprolol succinate 25 mg 25 mg PO QAM 12/04/23 03/08/24 History tablet,extended release 24 hr mometasone 50 mcg/actuation nasal 2 spray intranasal DAILY 12/04/23 03/08/24 History spray solifenacin 10 mg tablet (Vesicare) 10 mg PO QPM 12/04/23 03/08/24 History tamoxifen 20 mg tablet 20 mg PO QAM 12/04/23 03/08/24 History venlafaxine 150 mg 150 mg PO QAM 12/04/23 03/08/24 History capsule,extended release 24 hr (Effexor XR) levothyroxine 200 mcg tablet 200 mcg PO QAM #90 tabs 02/16/24 03/08/24 Rx calcium carbonate (Tums Ultra) 400 mg PO DAILY 03/08/24 03/08/24 History sodium chloride 5 % eye ointment 1 applic ophthalmic (eye) DAILY 03/08/24 03/08/24 History (Iftikhar 128) vitamin E 268 mg (400 unit) capsule 268 mg PO DAILY 03/08/24 03/08/24 History miconazole nitrate 2 % topical 1 applic EXT PRN PRN skin 03/14/24 Rx powder (Desenex) irritation #85 grams rivaroxaban 15 mg tablet (Xarelto) 15 mg PO BID 20 days #40 tabs 03/14/24 Rx Hospital Stay Data Consultations 03/08/24 14:03 ED Decision to Admit Stat Diagnostic Imagining Performed Head CTA 03/08/24 11:57 HEAD CTA HISTORY: dizzy TECHNIQUE: Multiaxial CT images of the head were performed both before and after the intravenous administration of contrast to evaluate the major cerebral vessels. 3D/MIP images were also obtained. Sagittal and coronal reformats were reviewed. A dose lowering technique was utilized adhering to the principles of ALARA. COMPARISON: Head CT 11/18/2023. FINDINGS: Mild mucosal thickening and a trace fluid level within the left maxillary sinus. The remaining paranasal sinuses and mastoid air cells are clear . The calvarium and skull base are intact. There is no mass, hematoma, midline shift, or acute infarct. The ventricles and sulci are within normal limits. The major dural venous sinuses appear patent. Mild calcified plaque within the bilateral carotid siphons. Visualized intracranial internal carotid arteries, distal vertebral arteries, and basilar artery are widely patent. There is no significant stenosis, occlusion, or aneurysm seen within the bilateral ACAs, MCAs, or keel press operator. IMPRESSION: 1. No acute intracranial abnormality. 2. No significant stenosis, occlusion, or aneurysm within the [place] of [place]. ACT 112: Negative or not required by law. Electronically signed by: Ranjith Monae M.D. 03/08/2024 1:45 PM Neck CTA 03/08/24 11:57 CT angio neck with con CLINICAL HISTORY: 73 years-old Female with dizzy. Acute dizziness COMPARISON STUDY: CTA had of same day TECHNIQUE: Following the IV administration of 112 mL of Optiray, CT angiogram of the neck was performed from the aortic arch to the skull base. Images are reviewed in the axial, sagittal, and coronal planes. 3-D MIPS images are created and assessed. IV contrast was administered without complication. All measurements were calculated based on NASCET criteria. A dose lowering technique was utilized adhering to the principles of ALARA. FINDINGS: Three-vessel morphology of the thoracic aortic arch. Patency of the innominate and image subclavian arteries. The common carotid arteries are patent. Atherosclerosis of the carotid bulbs and proximal internal carotid arteries without high-grade stenosis. The vertebral arteries are codominant and widely patent. No aneurysm, dissection, high-grade stenosis or arterial occlusion. Lung apices are clear without pneumothorax. No acute fracture. Mild mucosal thickening of the maxillary sinuses. Degenerative changes of the cervical spine. IMPRESSION:Unremarkable CTA of the neck. ACT 112: Negative or not required by law. The above report was generated using voice recognition software. It may contain grammatical, syntax or spelling errors. Electronically signed by: Romario Paez M.D. 03/08/2024 1:37 PM Chest X-Ray 03/08/24 11:58 XR chest 1V portable HISTORY: 73 years-old Female weakness acute weakness COMPARISON: 11/18/2023 TECHNIQUE: AP view of the chest FINDINGS: Cardiac silhouette is enlarged. Atherosclerosis of the aorta. Mild right hemidiaphragmatic elevation. No pneumothorax or pleural effusion. The lungs are clear. Spondylotic spurring of the spine. IMPRESSION: No acute process of the chest. ACT 112: Negative or not required by law. The above report was generated using voice recognition software. It may contain grammatical, syntax or spelling errors. Electronically signed by: Romario Paez M.D. 03/08/2024 12:58 PM Venous Doppler Study 03/08/24 15:56 BILATERAL LOWER EXTREMITY VENOUS DOPPLER CLINICAL HISTORY: b/l calf swelling and pain COMPARISON STUDY: No previous studies for comparison. TECHNIQUE: Sonography of the deep venous system of the bilateral lower extremities was performed. Compression and augmentation were evaluated. FINDINGS: There is deep venous thrombus within one of 2 paired right peroneal veins. No additional sites of deep venous thrombus within the right lower extremity are present. There is no deep venous thrombus within the left lower extremity. IMPRESSION: Deep venous thrombus within one of two paired right peroneal veins. No additional sites of deep venous thrombus within the lower extremities. ACT 112: Negative or not required by law. Electronically signed by: Seun Whitley M.D. 03/08/2024 5:20 PM Brain MRI 03/08/24 18:53 Exam(s): MRI HEAD Without Contrast EXAM: MR Head Without Intravenous Contrast CLINICAL HISTORY: Reason for exam: dysdiadochokinesia ?CVA. TECHNIQUE: Magnetic resonance images of the head/brain without intravenous contrast in multiple planes. COMPARISON: Prior head CT from March 08, 2024. FINDINGS: Brain: Minimal nonspecific white matter changes. No mass. No hemorrhage. No acute infarct. The flow voids of the base of the brain are intact. Ventricles: Unremarkable. No ventriculomegaly. Bones/joints: Unremarkable. No acute fracture. Sinuses: Chronic maxillary and ethmoid sinusitis. No acute sinusitis. Mastoid air cells: Unremarkable as visualized. No mastoid effusion. Orbits: Unremarkable as visualized. IMPRESSION: No evidence of acute intracranial pathology. Electronically signed by: Amy Angelo MD 03/09/24 02:06 AM Pending Results Patient Have Any Pending Studies at Discharge: No Discharge Instructions Given to Patient (Per Discharging Provider) Mrs. Avalos, You were hospitalized after periods of confusion, found to be a UTI. You were treated with IV antibiotics and symptoms resolved. You were also found to have a DVT (deep vein thrombosis - blood clot) in your right leg. For this you were started on Xarelto, you will take it twice a day for a total of 21 days (03/13 - 04/03) and then transition to once a day. I have attached information below about this - it is very important that you do NOT take NSAIDs (aleve, mortin, ibuprofen, advil) while taking this. The clot was likely provoked by your underlying cancer history. It is very important that you keep your mammogram appointment as scheduled and follow up with your oncologist. If you do not have an oncologist I have attached the information for Dr. Hoffman, who works locally. For the blood clot, you can use a heat pad if you are having any pain. Encouraging movement and wearing the compression stocking. No other changes to your home medications. For [facility]: * Xarelto 15mg BID 03/13-04/03. then transition to 20mg once daily ------- Here are some guidelines about taking Xarelto: XARELTO may cause serious side effects, including: Increased risk of blood clots if you stop taking XARELTO.Do not stop taking XARELTO without talking to your doctor who prescribes it for you. Stopping XARELTO increases your risk of having a stroke. Increased risk of bleeding. XARELTO can cause bleeding which can be serious and may lead to . This is because XARELTO is a blood thinner medicine (anticoagulant) that lowers blood clotting. During treatment with XARELTO you are likely to bruise more easily, and it may take longer for bleeding to stop. * If you ever cannot get bleeding to stop please report to the ER * If you have a bruise that is large/painful or swollen you should also be seen by a medical provider Call your doctor or get medical help right away if you or your child develop any of these signs or symptoms of bleeding: unexpected bleeding or bleeding that lasts a long time, such as: * nose bleeds that happen often * unusual bleeding from the gums * bleeding that is severe or you cannot control * red, pink or brown urine * bright red or black stools (looks like tar) * cough up blood or blood clots * vomit blood or your vomit looks like coffee grounds If you have a fall and hit your head, please come to the ER and get checked out. Being on a blood thinner increases your risk of brain bleeding with falls. Avoid high risk activities, such as: * standing on tall ladders * riding motorcyles * anything where you are high risk for falls or trauma Avoid taking NSAIDs (pain medication) while you are taking a blood thinner. This includes: * Ibuprofen, Aleve Advil, Naproxen. * If you are ever unsure you can ask your doctor or pharmacist. * Tylenol is SAFE to take. Remember to always take Xarelto with food. If you have any new or worsening chest pain or shortness of breath please return to the ER. It was our pleasure taking care of you. Total Time Total Time Spent Total Time Spent (In Minutes): Time spend day of discharge 40 minutes including direct patient care, medication reconciliation, documentation, review of labs and images, and coordination of care. Supervising Physician Co-Signing Physician Notes ROSEANN Supervision Note: I personally saw and examined the patient. I verified all tony points and agree with ROSEANN Baum with the following exceptions and/or additions: S-patient feels improved and is just generally weak and needs to go to rehab. She understands that she needs follow-up with her mammogram and oncologist to ensure her breast cancer has not returned given that she has a new acute DVT. However, she is also morbidly obese and leads a sedentary lifestyle which may be the cause of her DVT O- Vitals reviewed Gen: AAOx3, NAD, obese HEENT: Anicteric sclerae, EOMI CV: RRR no mgr nl S1S2 Pulm: CTAB no wcr Ext: No edema Skin: No rashes, warm/dry Neuro: Full strength throughout A/L-[id number]-old female here with acute metabolic encephalopathy from UTI, incidentally noted to have right peroneal vein DVT Recommend Xarelto anticoagulation for at least 3 months or longer if has recurrent malignancy Follow-up with oncology and mammogram Coding Level of Care Code 14047 INP/OBS DISCH >30 MIN Diagnoses Confusion R41.0 Deep venous thrombosis (DVT) of right peroneal vein, unspecified chronicity I82.451 Affected thrombotic vein of extremity: peroneal Chronicity: unspecified DVT location: lower extremity Laterality: right Type 2 diabetes mellitus without complication, without long-term current use of insulin E11.9 Diabetes mellitus complication status: without complication Diabetes mellitus group home insulin use: without group home use Hypomagnesemia E83.42
[2024-03-14 13:58] VITALS: BP 140/80; PULSE 84; RESP 18; TEMP 98.8; O2SAT 96
== END 2024-03-14 14:45 | DRG 689 ==
LOC: ED 11:29 → 2N 15:44 → SUATTDRO 15:44 → 2N 17:29 → 3W 03-11 21:35

== ENCOUNTER 2025-02-07 18:09 | Inpatient (IN) ==
[2025-02-07 19:03] LABS: Hematocrit (blood only) 31.6 % (37.0-47.0); Hemoglobin 10.6 g/dl (12.0-16.0); Immature Granulocytes # (auto) 0.03 K/uL (0.01-0.20); Immature Granulocytes % (auto) 0.4 %; Mean Corpuscular Hemoglobin 28.7 pg (25.0-34.0); Mean Corpuscular Volume 85.6 fL (80.0-100.0); Platelet Count 288 K/uL (130-400); RDW Standard Deviation 39.1 fL (36.4-46.3); Red Blood Count 3.69 M/uL (4.20-5.40); White Blood Count 8.25 K/ul (4.8-10.8)
--- NOTE | 2025-02-07 19:22 | XRay Report ---
EXAM: X-ray chest one-view portable CLINICAL HISTORY: CHF PRIORS: 03/08/2024 TECHNIQUE: Frontal view chest FINDINGS: Lung volumes are diminished. Patient is rotated. Mediastinum is unchanged, allowing for patient rotation. Mild interstitial changes noted. Heart size is normal. No pneumothorax. Trachea is patent. Osseous structures demonstrate no acute abnormality. No radiopaque foreign body. IMPRESSION: No plain film evidence of an acute cardiopulmonary process. Electronically signed by Elvira Chance 02-07-2025 7:22 PM
--- NOTE | 2025-02-07 19:24 | XRay Report ---
INDICATION: Pain TECHNIQUE: 3 views of the left foot were obtained. COMPARISON: None FINDINGS: No displaced acute osseous process is identified. No suspicious marrow changes are identified in these radiographs. 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 There is diffuse soft tissue swelling of the lower extremity and the foot. IMPRESSION: No displaced acute osseous process is identified. Diffuse soft tissue swelling of the lower extremity in the foot without suspicious marrow changes identified in these radiographs. Electronically signed by Marco Johnson 02-07-2025 7:24 PM
--- NOTE | 2025-02-07 19:24 | XRay Report ---
INDICATION: Pain TECHNIQUE: 3 views of the right foot were obtained. COMPARISON: None FINDINGS: No displaced acute osseous process is identified. No suspicious marrow changes are identified in these radiographs. 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 There is diffuse soft tissue swelling of the lower extremity and the foot. IMPRESSION: No displaced acute osseous process is identified. Diffuse soft tissue swelling of the lower extremity in the foot without suspicious marrow changes identified in these radiographs. Electronically signed by Marco Johnson 02-07-2025 7:24 PM
[2025-02-07 19:37] LABS: Alanine Aminotransferase 11.0 U/L (7-52); Albumin Globulin Ratio 0.9 (0.9-2); Alkaline Phosphatase 70.0 U/L (34-104); Anion Gap 10.0 (3-11); Bilirubin,Total 0.6 mg/dl (0.2-1.0); Blood Urea Nitrogen 65.0 mg/dl (6-23); Calcium 9.4 mg/dl (8.6-10.3); Carbon Dioxide 35.0 mmol/L (21-32); Chloride 88.0 mmol/L (98-107); Creatinine Clr Calc Pharmacy 29.4 ml/min; Globulin 4.1 gm/dl (2.5-4.0); Glucose 83.0 mg/dl (70-99(Fasting)); Potassium 3.4 mmol/L (3.5-5.1); Sodium 133.0 mmol/L (136-145); Total Protein 7.7 gm/dl (6.0-8.3)
--- NOTE | 2025-02-07 20:35 | History & Physical Report ---
Date of Service February 07, 2025 Assessment & Plan (1) Lower extremity venous stasis: (2) Type 2 diabetes mellitus: (3) DVT (deep venous thrombosis): (4) DCIS (ductal carcinoma in situ) of breast: Plan 74-year-old female presents with lower extremity swelling erythema and acute kidney injury. 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 #Acute kidney injury. Patient has chronic kidney disease based upon hypertension and diabetes. Patient was recently put on Lasix and hydrochlorothiazide for lower extremity swelling and subsequently has developed acute kidney injury. There is no urine analysis this will be obtained to look for active sediment patient will have a renal ultrasound to look for structural kidney disease but this is likely ATN from her diuretics. Subsequently we will hold her lisinopril hold her Lasix and hydrochlorothiazide because of her lower extremity swelling we will give her a very gentle IV fluid rate for total of 500 reassessing labs in the morning #Lower extremity swelling. This appears to be chronic venous stasis likely contributed to by her morbid obesity and previous DVT. Her last echocardiogram was 2021 at that time she had a normal echocardiogram. Subsequently her lower extremities are likely chronic venous stasis and difficult to treat with loop diuretics. Will have wound care evaluate the patient's wounds and also to determine if compression wraps are good for her. She has used prescribed has not worn them for some time. Her family is out of town which usually provides her care and she says she has been eating canned vegetable soup at home which likely creates an increase salt load to increase her swelling #Ambulatory dysfunction reportedly the patient lives alone although only having 4 stairs having difficulty getting around due to her lower extremity swelling deceptively a PT OT evaluation later taken determine if rehab is needed. #Regarding her diabetes she typically is on Mounjaro metformin. These will currently be held we will place on a sliding scale and determine if she needs any basal insulin as we move forward and A1c will be checked #Hypertension patient continues on metoprolol 25 mg a day holding dehydrate chlorothiazide and lisinopril we will watch to see if this dose needs to be adjusted #History of breast cancer patient remains on tamoxifen therapy #DVT prevention is Xarelto which she takes for chronic lower extremity DVT treatment History of Present Illness Primary Care Provider: Hailey Munoz MD 34-year-old female presents with complaints of difficulty walking due to leg swelling. Patient history of chronic venous stasis and history of right lower extremity DVT. She reportedly was started on Lasix as an outpatient for lower extremity swelling. This did not help. At that time her primary care also was concerned about infection and put her on cephalexin. The patient today has acute kidney injury with a baseline history of chronic kidney disease based on hypertension and diabetes. Her BUN/creatinine are 65 and 2.02. He is recommended for admission due to acute kidney injury. Patient seems somewhat this invested in her health care she reportedly ate vegetable soup for lunch out of a can we talked little bit about salt restriction she does live alone. She also her daughter who is her local caregiver who is away on a trip which likely leads to some worsening of her chronic conditions. Allergies Allergy/AdvReac Type Severity Reaction Status Date / Time codeine Allergy Mild RASH Verified 01/23/25 11:10 Sulfa (Sulfonamide Allergy Mild RASH Verified 01/23/25 11:10 Antibiotics) sulfamethoxazole Allergy Mild RASH Verified 01/23/25 11:10 trimethoprim Allergy Mild RASH Verified 01/23/25 11:10 Home Medications Medication Instructions Recorded Confirmed Type ggcyoxgh-tzx-ghcmt acid 0.4 1 tab PO QAM 02/05/19 01/23/25 History mg-lycopene 300 mcg-lutein 250 mcg tablet (Centrum Silver) loratadine 10 mg tablet (Claritin) 10 mg PO QAM #90 tabs 10/01/21 01/23/25 Rx albuterol sulfate 90 mcg/actuation 2 puff inhalation QID PRN sob #18 02/16/23 01/23/25 Rx aerosol inhaler (Ventolin HFA) grams blood sugar diagnostic (Accu-Chek #100 ea 04/21/23 01/23/25 Rx Guide test strips) omega 6-mec-qth-fish oil 1,000 mg 1 cap PO QPM 11/18/23 01/23/25 History (120 mg-180 mg) capsule (Fish Oil) mometasone 50 mcg/actuation nasal 2 spray intranasal DAILY 12/04/23 01/23/25 History spray calcium carbonate (Tums Ultra) 400 mg PO QAM 03/08/24 01/23/25 History sodium chloride 5 % eye ointment 1 applic ophthalmic (eye) HS 03/08/24 01/23/25 History (Iftikhar 128) vitamin E 268 mg (400 unit) capsule 268 mg PO QPM 03/08/24 01/23/25 History miconazole nitrate 2 % topical 1 applic EXT PRN PRN skin 03/14/24 01/23/25 Rx powder (Desenex) irritation #85 grams lancing device with lancets kit #1 ea 04/20/24 01/23/25 Rx (Accu-Chek FastClix Lancing Device kit) lancets (Accu-Chek Fastclix Lancet #200 ea 05/02/24 01/23/25 Rx Drum) venlafaxine 150 mg 150 mg PO DAILY #90 caps 06/17/24 01/23/25 Rx capsule,extended release 24 hr (Effexor XR) rivaroxaban 20 mg tablet (Xarelto) 20 mg PO QPM #90 tabs 06/27/24 01/23/25 Rx lisinopril 20 mg tablet 10 mg (1/2 x 20 mg) PO QAM #45 tabs 07/20/24 01/23/25 Rx tamoxifen 20 mg tablet 20 mg PO QAM #90 tabs 07/20/24 01/23/25 Rx oxybutynin chloride 10 mg 10 mg PO QAM #90 tabs 10/17/24 01/23/25 Rx tablet,extended release 24 hr compress.stocking,knee,reg,lrg #2 ea 10/19/24 01/23/25 Rx omeprazole 20 mg capsule,delayed 40 mg (2 x 20 mg) PO QPM #180 caps 11/18/24 01/23/25 Rx release metformin 500 mg tablet 250 mg (1/2 x 500 mg) PO BID #90 11/22/24 01/23/25 Rx tabs metoprolol succinate 25 mg See Rx Instructions .Route 11/22/24 01/23/25 Rx tablet,extended release 24 hr .COMPLEX #90 tabs montelukast 10 mg tablet 10 mg PO QPM #90 tabs 12/13/24 01/23/25 Rx (Singulair) tirzepatide 5 mg/0.5 mL 5 mg (0.5 mL) subcut WK #4 mL 12/13/24 01/23/25 Rx subcutaneous pen injector (Rupert) hydrochlorothiazide 25 mg tablet 25 mg PO QAM #90 tabs 01/02/25 01/23/25 Rx simvastatin 40 mg tablet (Zocor) 40 mg PO HS hypercholesterolemia 01/02/2505/11 Rx #90 tabs levothyroxine 200 mcg capsule 200 mcg PO DAILY 01/19/25 01/23/25 History nystatin 100,000 unit/gram topical 1 applic topical BID PRN 01/19/25 01/23/25 History powder cephalexin 500 mg capsule 500 mg PO Q8H #30 caps 01/23/25 01/23/25 Rx furosemide 40 mg tablet 40 mg PO DAILY PRN edema #30 tabs 01/23/25 01/23/25 Rx Past Med/Surg History Problem List (Updated 01/23/25 @ 11:17 by Siddharth Elizondo, DO) Morbid obesity Paresthesias in right hand Left foot pain Urinary symptom or sign Encounter for immunization Skin tear of right lower leg without complication Right shoulder pain Encounter for examination following treatment at hospital Anemia (Acute) Dysphagia Urinary incontinence Elbow injury Constipation Chest pressure Medical History Constipation Right shoulder pain Urinary incontinence Dysphagia Anemia DVT (deep venous thrombosis) (03/09/24) Lower extremity venous stasis 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) History of left breast cancer Type 2 diabetes mellitus Hx of falling Cellulitis Allergic rhinitis Cervical somatic dysfunction Cranial somatic dysfunction Hypercholesterolemia Hypertension Hypothyroidism Idiopathic peripheral neuropathy Obesity MILTON (obstructive sleep apnea) Asthma Macular degeneration Osteoarthritis Fatty liver GERD (gastroesophageal reflux disease) Depression Chronic venous insufficiency Bilateral lower extremity edema Surgical History History of tooth extraction S/P arthroscopy of left shoulder (01/2019) History of nasal surgery History of partial hysterectomy History of colonoscopy History of lumpectomy of left breast (2020) Family History Brother Diabetes Non-Hodgkins lymphoma Waldenstrom's disease Father Heart disease Melanoma Myocardial infarction Diabetes Mother Hepatitis Hepatic cirrhosis Sister No problems noted. Sister Fibromyalgia Arthritis Daughter No problems noted. Other No family history of adverse response to anesthesia Denies family history of Ovarian cancer Prostate cancer Breast cancer Colorectal cancer Social History Smoking Status: Never smoker Second Hand Exposure: No; Do You Dip or Chew Tobacco: No; Hx Alcohol Use: No Hx Substance Use: No Preferred Language: Sinhala Communication Ability: Effective Visual Impairment: Limited Hearing Ability: Normal Ground Equipment Mechanic Required: No Beliefs That Will Affect Care: None marital status: / Current Living Situation: Alone Current Living Situation Comment: lives alone current occupational status: retired How many Children do You have: 1 Feels Safe at Home: Yes Childhood Exposure to Second-Hand Smoke: No Diet: regular caffeine: Yes (Soda) during the past year weight has: remained stable Dental Care, Regularly: Yes Physical Activity Frequency: 1-2 Times per Week Seatbelt Use: always Sunscreen Use: No Do you think of yourself as: straight/heterosexual Sexual Activity: has been sexually active, but not for at least 12 months Gender Identity: Female Assistive Devices: Glasses and Walker Review of Systems Review of Systems: Mild distress and fatigue patient has a flat affect no headache, no visual changes no speech or swallowing issues no chest pain, pressure or palpitations no shortness of breath, cough or wheezes no abdominal pain, nausea or vomiting, diarrhea or constipation no dysuria, hematuria or frequency no focal joint pain or swelling no back pain, CVA tenderness or radicular pain Open areas on lower legs bilaterally no focal signs of weakness or numbness or altered sensation no complaints of anxiety or depression.. Physical Exam Physical Exam: The patient appeared well nourished and normally developed. Patient is a flat affect Vital signs as documented. Head exam is normocephalic atraumatic Neck is without JVD, thyromegaly, or carotid bruits. Lungs are clear to auscultation, no focal loss of breath sounds Cardiac exam, Rhythm is regular.. No murmurs, rubs or gallops. Abdominal exam reveals normal bowel sounds, soft non tender, no masses Extremities are 2+ edema bilaterally. Shipping bottle legs. Circumferential erythema consistent with venous stasis dermatitis. Open areas worse on the right and left in the anterior aspect of her legs but this does not appear to be actively infected Neurologic exam is alert and oriented, no focal loss of strength or sensation Skin is with chronic venous stasis dermatitis Psychologically is without concerns for anxiety or depression.. Results & Data Results & Data Vital Signs (Past 12 Hours) Vital Signs Temp Pulse Pulse Resp BP BP Pulse Ox 02/07/25 20:03 90 20 109/72 96 02/07/25 18:11 98.4 F 94 H 20 122/66 97 O2 Del Method 02/07/25 20:03 Room Air 02/07/25 18:11 Room Air Laboratory Results Reviewed laboratory showing acute kidney injury with history of chronic kidney disease stage II Code Status & VTE Plan VTE Prophylaxis Plan VTE Prophylaxis will be ordered: Yes PG Care Time/CCT Total # of Minutes Spent Total Time Spent with Patient: Total time spent is greater than 50% in coordination of care (as documented) at patient's floor/unit and/or counseling patient: Coding Level of Care Code 78804 INT INP/OBS CARE 3/75MIN Diagnoses Lower extremity venous stasis I87.8 Type 2 diabetes mellitus without complication, without long-term current use of insulin E11.9 Diabetes mellitus penitentiary insulin use: without oysterman use Diabetes mellitus complication status: without complication Deep venous thrombosis (DVT) of right peroneal vein, unspecified chronicity I82.451 DVT location: lower extremity Affected thrombotic vein of extremity: peroneal Chronicity: unspecified Laterality: right 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.12 Laterality: left (2) Type 2 diabetes mellitus Diabetes mellitus oysterman insulin use: without oysterman use Diabetes mellitus complication status: without complication Qualified Code(s): E11.9 - Type 2 diabetes mellitus without complications (3) DVT (deep venous thrombosis) DVT location: lower extremity Affected thrombotic vein of extremity: peroneal Chronicity: unspecified Laterality: right Qualified Code(s): I82.451 - Acute embolism and thrombosis of right peroneal vein (4) DCIS (ductal carcinoma in situ) of breast Laterality: left Qualified Code(s): D05.12 - Intraductal carcinoma in situ of left breast
--- NOTE | 2025-02-07 21:01 | Emergency Department Note ---
Impression & Plan YADY (acute kidney injury), Bilateral edema of lower extremity ED Provider Note NAME: SREEKANTH RAMIREZ AGE: 74 SEX: F : 1950 ARRIVES VIA: Walk-In INFORMANT: Patient, ED PROVIDER(S): Kiana Puckett MD CHIEF COMPLAINT: Lower extremity edema, left heel pain HPI: This is a 74-year-old female present for lower extremity edema and heel pain. Patient notes that she has had increasing leg swelling to bilateral legs. She was prescribed a second diuretic for the last 1 week. She notes she has been incontinent due to this. She knows she have difficulty walking due to the leg swelling. She reports pain in her left heel as well. She reports drainage from both legs, weeping. She reports no fevers, chills, nausea, vomiting or shortness of breath. ROS: See above HPI for pertinent positives & negatives. A total of 10 systems reviewed and were otherwise negative. PAST MEDICAL HISTORY: See Below PAST SURGICAL HISTORY: See Below FAMILY HISTORY: See Below SOCIAL HISTORY: See Below HOME MEDICATIONS: See Below ALLERGIES: See Below VITALS: See Below PHYSICAL EXAMINATION: General: resting comfortably in no acute distress Head: Normocephalic and atraumatic Eyes: Normal inspection, extraocular muscles intact Ear, nose, throat: Normal external exam Neck: Normal range of motion Respiratory: lungs clear to auscultation bilaterally Cardiovascular: Regular rate/rhythm, no murmur GI: soft, nontender, no guarding or rebound Extremities: 2+ pitting edema to bilateral lower extremities, chronic venous skin changes, weeping skin, left heel superficial ulcer Neuro: The patient awake and alert, appropriately conversive, no focal deficits, symmetric faces Skin: Warm, dry, and intact MEDICAL DECISION MAKING: This is a 74-year-old female present for lower extreme edema and heel pain. Consider fluid overload as likely etiology. Family concerned about cellulitis versus fluid overload. - Patient currently on Xarelto does not express calf pain. Low concern for DVT clinically. - Concern more for fluid overload based on clinical appearance. - Will get x-rays to evaluate for deep space infection/osteomyelitis - X-rays are currently negative for osteomyelitis -Patient's creatinine has more than doubled since her last creatinine check few months ago. Suspect due to the diuretics. - Will admit the patient currently for YADY, fluid overload -Chest Xray independently interpreted by me showing no pneumothorax, focal opacity, or pleural effusions. Differential diagnosis: CHF, lower extremity edema, cellulitis, YADY Independent History obtained from: Daughter Diagnostics interpreted by me: ECG: None Cardiac Monitoring: An order was placed for continuous cardiac monitoring. The monitor shows a rate of 70 with sinus rhythm. Past Med/Surg History Problem List (Updated 02/09/25 @ 01:28 by Kiana Puckett MD) Bilateral edema of lower extremity (Acute) YADY (acute kidney injury) (Acute) YADY (acute kidney injury) Morbid obesity Paresthesias in right hand Left foot pain Urinary symptom or sign Encounter for immunization Skin tear of right lower leg without complication Right shoulder pain Encounter for examination following treatment at hospital Anemia (Acute) Dysphagia Urinary incontinence Elbow injury Constipation Chest pressure Medical History Constipation Right shoulder pain Urinary incontinence Dysphagia Anemia DVT (deep venous thrombosis) (03/09/24) Lower extremity venous stasis 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) History of left breast cancer Type 2 diabetes mellitus Hx of falling Cellulitis Allergic rhinitis Cervical somatic dysfunction Cranial somatic dysfunction Hypercholesterolemia Hypertension Hypothyroidism Idiopathic peripheral neuropathy Obesity MILTON (obstructive sleep apnea) Asthma Macular degeneration Osteoarthritis Fatty liver GERD (gastroesophageal reflux disease) Depression Chronic venous insufficiency Bilateral lower extremity edema Surgical History History of tooth extraction S/P arthroscopy of left shoulder (01/2019) History of nasal surgery History of partial hysterectomy History of colonoscopy History of lumpectomy of left breast (2020) Family History Brother Diabetes Non-Hodgkins lymphoma Waldenstrom's disease Father Heart disease Melanoma Myocardial infarction Diabetes Mother Hepatitis Hepatic cirrhosis Sister No problems noted. Sister Fibromyalgia Arthritis Daughter No problems noted. Other No family history of adverse response to anesthesia Denies family history of Ovarian cancer Prostate cancer Breast cancer Colorectal cancer Social History Smoking Status: Never smoker Second Hand Exposure: No; Do You Dip or Chew Tobacco: No; Hx Alcohol Use: No Hx Substance Use: No Preferred Language: Citizen Of [place] Communication Ability: Effective Visual Impairment: Limited Hearing Ability: Normal Invasive Cardiovascular Technologist Required: No Beliefs That Will Affect Care: None marital status: / Current Living Situation: Alone Current Living Situation Comment: lives alone current occupational status: retired How many Children do You have: 1 Other Information That Helps Us Care for You: No Feels Safe at Home: Yes Safety Concerns: Feels Safe At This Time Childhood Exposure to Second-Hand Smoke: No Diet: regular caffeine: Yes (Soda) during the past year weight has: remained stable Dental Care, Regularly: Yes Physical Activity Frequency: 1-2 Times per Week Seatbelt Use: always Sunscreen Use: No Do you think of yourself as: straight/heterosexual Sexual Activity: has been sexually active, but not for at least 12 months Gender Identity: Female Assistive Devices: Cane and Walker Allergies Allergies Allergy/AdvReac Type Severity Reaction Status Date / Time codeine Allergy Mild RASH Verified 01/23/25 11:10 Sulfa (Sulfonamide Allergy Mild RASH Verified 01/23/25 11:10 Antibiotics) sulfamethoxazole Allergy Mild RASH Verified 01/23/25 11:10 trimethoprim Allergy Mild RASH Verified 01/23/25 11:10 Home Meds Home Medications Medication Instructions Recorded Confirmed [id number] acid 0.4 1 tab PO QAM 02/05/19 01/23/25 mg-lycopene 300 mcg-lutein 250 mcg tablet (Centrum Silver) omega 2-tms-ujv-fish oil 1,000 mg 1 cap PO QPM 11/18/23 01/23/25 (120 mg-180 mg) capsule (Fish Oil) mometasone 50 mcg/actuation nasal 2 spray intranasal DAILY 12/04/23 01/23/25 spray calcium carbonate (Tums Ultra) 400 mg PO QAM 03/08/24 01/23/25 sodium chloride 5 % eye ointment 1 applic ophthalmic (eye) HS 03/08/24 01/23/25 (Iftikhar 128) vitamin E 268 mg (400 unit) capsule 268 mg PO QPM 03/08/24 01/23/25 levothyroxine 200 mcg capsule 200 mcg PO DAILY 01/19/25 01/23/25 nystatin 100,000 unit/gram topical 1 applic topical BID PRN 01/19/25 01/23/25 powder Previous Rx's Medication Instructions Recorded loratadine 10 mg tablet (Claritin) 10 mg PO QAM #90 tabs 10/01/21 albuterol sulfate 90 mcg/actuation 2 puff inhalation QID PRN sob #18 02/16/23 aerosol inhaler (Ventolin HFA) grams blood sugar diagnostic (Accu-Chek #100 ea 04/21/23 Guide test strips) miconazole nitrate 2 % topical 1 applic EXT PRN PRN skin 03/14/24 powder (Desenex) irritation #85 grams lancing device with lancets kit #1 ea 04/20/24 (Accu-Chek FastClix Lancing Device kit) lancets (Accu-Chek Fastclix Lancet #200 ea 05/02/24 Drum) venlafaxine 150 mg 150 mg PO DAILY #90 caps 06/17/24 capsule,extended release 24 hr (Effexor XR) rivaroxaban 20 mg tablet (Xarelto) 20 mg PO QPM #90 tabs 06/27/24 lisinopril 20 mg tablet 10 mg (1/2 x 20 mg) PO QAM #45 tabs 07/20/24 tamoxifen 20 mg tablet 20 mg PO QAM #90 tabs 07/20/24 oxybutynin chloride 10 mg 10 mg PO QAM #90 tabs 10/17/24 tablet,extended release 24 hr compress.stocking,knee,reg,lrg #2 ea 10/19/24 omeprazole 20 mg capsule,delayed 40 mg (2 x 20 mg) PO QPM #180 caps 11/18/24 release metformin 500 mg tablet 250 mg (1/2 x 500 mg) PO BID #90 11/22/24 tabs metoprolol succinate 25 mg See Rx Instructions .Route 11/22/24 tablet,extended release 24 hr .COMPLEX #90 tabs montelukast 10 mg tablet 10 mg PO QPM #90 tabs 12/13/24 (Singulair) tirzepatide 5 mg/0.5 mL 5 mg (0.5 mL) subcut WK #4 mL 12/13/24 subcutaneous pen injector (Rupert) hydrochlorothiazide 25 mg tablet 25 mg PO QAM #90 tabs 01/02/25 simvastatin 40 mg tablet (Zocor) 40 mg PO HS hypercholesterolemia 01/02/25 #90 tabs cephalexin 500 mg capsule 500 mg PO Q8H #30 caps 01/23/25 furosemide 40 mg tablet 40 mg PO DAILY PRN edema #30 tabs 01/23/25 Results & Data (ED) Vital Signs Vital Signs - 24 hr 02/07/25 18:11 02/07/25 20:03 Temperature 36.9 C Temperature Source Oral Pulse Rate 94 H Pulse Rate [Apical] 90 Respiratory Rate 20 20 Respiratory Effort / Characteristics Non-Labored Spontaneous Respiratory Depth Normal Respiratory Pattern Regular Blood Pressure 122/66 Blood Pressure [Right Arm] 109/72 Blood Pressure Mean 84 Blood Pressure Mean [Right Arm] 84 Pulse Oximetry 97 96 Oxygen Delivery Method Room Air Room Air Sepsis Recent Fever Within 48 Hours No Sepsis New/Unexplained Change in Mental Status N/A Sepsis Action Taken by Nursing No Action Required Laboratory Data 02/08/25 04:15 02/08/25 04:15 Lab Results 02/07/25 Range/Units 18:32 WBC 8.25 (4.8-10.8) K/ul RBC 3.69 L (4.20-5.40) M/uL Hgb 10.6 L (12.0-16.0) g/dl Hct 31.6 L (37.0-47.0) % MCV 85.6 (80.0-100.0) fL MCH 28.7 (25.0-34.0) pg MCHC 33.5 (32.0-36.0) g/dL RDW Std Deviation 39.1 (36.4-46.3) fL RDW Coeff of Shantelle 12.5 (11.5-14.5) % Plt Count 288 (130-400) K/uL MPV 9.6 (9.4-12.4) fL Immature Gran % (Auto) 0.4 % Neut % (Auto) 68.3 % Lymph % (Auto) 19.0 % Benzie % (Auto) 11.2 % Eos % (Auto) 0.7 % Baso % (Auto) 0.4 % Neut # (Auto) 5.64 (1.40-6.50) K/uL Lymph # (Auto) 1.57 (1.20-3.40) K/uL Benzie # (Auto) 0.92 H (0.11-0.59) K/uL Eos # (Auto) 0.06 (0.00-0.50) K/uL Baso # (Auto) 0.03 (0.00-0.20) K/uL Immature Gran # (Auto) 0.03 (0.01-0.20) K/uL Sodium 133 L (136-145) mmol/L Potassium 3.4 L (3.5-5.1) mmol/L Chloride 88 L (98-107) mmol/L Carbon Dioxide 35 H (21-32) mmol/L Anion Gap 10 (3-11) BUN 65 H (6-23) mg/dl Creatinine 2.02 H (0.6-1.2) mg/dl Est Cr Clr Drug Dosing 29.4 ml/min eGFR 25.75 BUN/Creatinine Ratio 32.2 H (10-20) Glucose 83 (70-99(Fasting)) mg/dl Calcium 9.4 (8.6-10.3) mg/dl Total Bilirubin 0.6 (0.2-1.0) mg/dl AST 20 (13-39) U/L ALT 11 (7-52) U/L Alkaline Phosphatase 70 (34-104) U/L B-Natriuretic Peptide 18 (0-100) pg/ml Total Protein 7.7 (6.0-8.3) gm/dl Albumin 3.6 (3.4-5.0) gm/dl Globulin 4.1 H (2.5-4.0) gm/dl Albumin/Globulin Ratio 0.9 (0.9-2) Administered Medications Acetaminophen (Acetaminophen 325 Mg Tab) 650 mg PO Q4H [facility] Stop: 03/10/25 19:14 Last Admin: 02/08/25 23:22 Dose: Not Given Documented By: Admin: 02/08/25 20:08 Dose: Not Given Documented By: EL Fluticasone Propionate (Fluticasone Propionate Na Spr 16 Gm Btl) 2 sprays NA DAILY NURYS Stop: 03/10/25 08:59 Last Admin: 02/08/25 09:26 Dose: 2 sprays Documented By: VGFeliciano Insulin Aspart (Insulin Aspart Per Unit Charge) 0 units SC ACHS NURYS Stop: 03/10/25 07:29 Last Admin: 02/08/25 20:57 Dose: 1 units Documented By: EL Co-signed By: YADIRA Admin: 02/08/25 16:46 Dose: Not Given Documented By: Admin: 02/08/25 12:12 Dose: 1 units Documented By: EVERTON Co-signed By: PME Admin: 02/08/25 09:30 Dose: Not Given Documented By: EVERTON Co-signed By: [facility] Levothyroxine Sodium (Levothyroxine Sodium 200 Mcg Tablet) 200 mcg PO DAILYBB [facility] Stop: 03/10/25 06:29 Last Admin: 02/08/25 05:54 Dose: 200 mcg Documented By: EL Metoprolol Succinate (Metoprolol Succ 25mg Ext Rel Tab) [facility] Stop: 03/10/25 08:59 Last Admin: 02/08/25 09:26 Dose: 25 mg Documented By: EVERTON Miconazole Nitrate (Miconazole Nitrate Powder 85 Gm) 1 appln EXT PRN PRN PRN Reason: skin irritation Stop: 03/09/25 22:12 Last Admin: 02/08/25 17:25 Dose: 1 appln Documented By: EVERTON Montelukast Sodium (Montelukast Sodium 10 Mg Tablet) 10 mg PO QPM [facility] Stop: 03/09/25 22:12 Last Admin: 02/08/25 20:08 Dose: 10 mg Documented By: Admin: 02/07/25 23:07 Dose: 10 mg Documented By: EL Oxybutynin Chloride (Oxybutynin Chloride Xl 5 Mg Tabcr) 10 mg PO QAM [facility] Stop: 03/10/25 08:59 Last Admin: 02/08/25 09:26 Dose: 10 mg Documented By: EVERTON Pantoprazole Sodium (Pantoprazole 40 Mg Tab) 40 mg PO QPM [facility] Stop: 03/09/25 22:29 Last Admin: 02/08/25 20:09 Dose: 40 mg Documented By: Admin: 02/07/25 23:06 Dose: 40 mg Documented By: EL Rivaroxaban (Rivaroxaban 20 Mg Tab) 20 mg PO QPM [facility] Stop: 03/09/25 22:12 Last Admin: 02/08/25 20:09 Dose: 20 mg Documented By: Admin: 02/07/25 23:07 Dose: 20 mg Documented By: EL Tamoxifen Citrate (Tamoxifen Citrate 10 Mg Tablet) 20 mg PO QAM [facility] Stop: 03/10/25 08:59 Last Admin: 02/08/25 09:30 Dose: 20 mg Documented By: ALEXIS Co-signed By: [facility] Venlafaxine HCl (Venlafaxine Hcl Xr 150 Mg Capxr) 150 mg PO DAILY NURYS Stop: 03/10/25 08:59 Last Admin: 02/08/25 09:27 Dose: 150 mg Documented By: VGS Discontinued Medications Al Hydrox/Mg Hydrox/Simethicone (Aluminum/Magnesium Susp 30 Ml Udc) 30 ml PO NOW STA Stop: 02/08/25 18:52 Last Admin: 02/08/25 20:10 Dose: Not Given Documented By: KML Sodium Chloride (Nss) 1,000 mls @ 80 mls/hr IV .[id number] NURYS Stop: 02/08/25 10:42 Last Infusion: 02/08/25 11:23 Dose: Infused Documented By: Admin: 02/07/25 22:53 Dose: 80 mls/hr Documented By: KML Sodium Chloride (Nss) 1,000 mls @ 125 mls/hr IV .Q8H NURYS Stop: 02/08/25 13:29 Last Infusion: 02/08/25 18:35 Dose: Infused Documented By: Admin: 02/08/25 11:08 Dose: 125 mls/hr Documented By: VGS Potassium Chloride (Potassium Chloride Crtab 20 Meq Tabcr) 20 meq PO NOW ONE Stop: 02/08/25 10:31 Last Admin: 02/08/25 11:08 Dose: 20 meq Documented By: VGS Imaging Data Radiologist's Impression: Chest X-Ray 02/07/25 18:30 EXAM: X-ray chest one-view portable CLINICAL HISTORY: CHF PRIORS: 03/08/2024 TECHNIQUE: Frontal view chest FINDINGS: Lung volumes are diminished. Patient is rotated. Mediastinum is unchanged, allowing for patient rotation. Mild interstitial changes noted. Heart size is normal. No pneumothorax. Trachea is patent. Osseous structures demonstrate no acute abnormality. No radiopaque foreign body. IMPRESSION: No plain film evidence of an acute cardiopulmonary process. Electronically signed by Elvira Chance 02-07-2025 7:22 PM Foot X-Ray 02/07/25 18:31 INDICATION: Pain TECHNIQUE: 3 views of the left foot were obtained. COMPARISON: None FINDINGS: No displaced acute osseous process is identified. No suspicious marrow changes are identified in these radiographs. 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 There is diffuse soft tissue swelling of the lower extremity and the foot. IMPRESSION: No displaced acute osseous process is identified. Diffuse soft tissue swelling of the lower extremity in the foot without suspicious marrow changes identified in these radiographs. Electronically signed by Marco Johnson 02-07-2025 7:24 PM Foot X-Ray 02/07/25 18:31 INDICATION: Pain TECHNIQUE: 3 views of the right foot were obtained. COMPARISON: None FINDINGS: No displaced acute osseous process is identified. No suspicious marrow changes are identified in these radiographs. 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 There is diffuse soft tissue swelling of the lower extremity and the foot. IMPRESSION: No displaced acute osseous process is identified. Diffuse soft tissue swelling of the lower extremity in the foot without suspicious marrow changes identified in these radiographs. Electronically signed by Marco Johnson 02-07-2025 7:24 PM Discharge Plan Visit Data Chief Complaint: Foot Injury/Pain Stated Complaint: L HEEL PAIN,CELLULITIS IN BOTH LEGS ED Provider: Kiana Puckett Discharge Problem: YADY (acute kidney injury), Bilateral edema of lower extremity Patient Disposition: Admitted As Inpatient Condition: Fair Discharge Instructions Interventions: ED Discharge Assessment Last Done: 02/07/25 21:27
[2025-02-07] MEDS ORDERED: DEXTROSE 50% 50 ML SYRINGE IV PRN (22:13)
[2025-02-07] MEDS ORDERED: GLUCAGON FOR INJ 1 MG VIAL SQ PRN (22:13)
[2025-02-07] MEDS ORDERED: ALBUTEROL HFA 8 GM INHALER INH PRN (22:13)
[2025-02-07] MEDS ORDERED: ONDANSETRON INJ 2 MG/ML 2 ML VIAL IV PRN (22:13)
[2025-02-07] MEDS ORDERED: CARBOHYDRATES FOR HYPOGLYCEMIA PO PRN (22:13)
[2025-02-07] MEDS ORDERED: GLUCOSE 40% GEL 15 GM TUBE PO PRN (22:13)
[2025-02-07] MEDS ORDERED: GLUCOSE 10 TAB/TUBE PO PRN (22:13)
[2025-02-07] MEDS ORDERED: ACETAMINOPHEN 325 MG TAB PO PRN (22:13)
[2025-02-07] MEDS: SODIUM CHLORIDE 0.9% 1,000 ML IV SCH (22:53)
[2025-02-07] MEDS: MONTELUKAST SODIUM 10 MG TABLET PO SCH (23:07)
[2025-02-07] MEDS: RIVAROXABAN 20 MG TAB PO SCH (23:07)
[2025-02-07 23:26] LABS: Appearance Urine Clear (Clear); Glucose Urine UA Negative (Negative)
[2025-02-08 04:56] LABS: Hematocrit (blood only) 27.9 % (37.0-47.0); Hemoglobin 9.5 g/dl (12.0-16.0); Mean Corpuscular Hemoglobin 29.2 pg (25.0-34.0); Mean Corpuscular Volume 85.8 fL (80.0-100.0); Platelet Count 240 K/uL (130-400); RDW Standard Deviation 38.3 fL (36.4-46.3); Red Blood Count 3.25 M/uL (4.20-5.40); White Blood Count 6.39 K/ul (4.8-10.8)
[2025-02-08 05:14] LABS: Anion Gap 7.0 (3-11); Blood Urea Nitrogen 53.0 mg/dl (6-23); Calcium 8.7 mg/dl (8.6-10.3); Carbon Dioxide 35.0 mmol/L (21-32); Chloride 93.0 mmol/L (98-107); Creatinine Clr Calc Pharmacy 41.6 ml/min; Glucose 114.0 mg/dl (70-99(Fasting)); Potassium 3.2 mmol/L (3.5-5.1); Sodium 135.0 mmol/L (136-145)
[2025-02-08 05:27] LABS: Thyroid Stimulating Hormone 0.384 uIu/ml (0.300-4.500)
[2025-02-08] MEDS: LEVOTHYROXINE SODIUM 200 MCG TABLET PO SCH (05:54)
[2025-02-08 07:16] LABS: Hemoglobin A1C 6.1 % (4.5-5.6)
--- NOTE | 2025-02-08 08:56 | Ultrasound Report ---
RENAL ULTRASOUND HISTORY: acute renal failure COMPARISON: CT abdomen and pelvis 11/18/2023 FINDINGS: Right kidney: 10.9 cm. No hydronephrosis. Normal corticomedullary differentiation and cortical thickn ess. Left kidney: 10.0 cm. No hydronephrosis. Normal corticomedullary differentiation and cortical thickne ss. Bladder: Mild nonspecific wall thickening. The bilateral ureteral jets were not identified. Cholelithiasis incidentally noted without sonographic evidence of acute cholecystitis. IMPRESSION: 1. No renal calculi or hydronephrosis. 2. Cholelithiasis. ACT 112: Negative or not required by law. Electronically signed by: Romario Paez M.D. 02/08/2025 8:55 AM
[2025-02-08] MEDS: METOPROLOL SUCC 25MG EXT REL TAB PO SCH (09:26)
[2025-02-08] MEDS: FLUTICASONE PROPIONATE NA SPR 16 GM BTL SCH (09:26)
[2025-02-08] MEDS: OXYBUTYNIN CHLORIDE XL 5 MG TABCR PO SCH (09:26)
[2025-02-08] MEDS: VENLAFAXINE HCL XR 150 MG CAPXR PO SCH (09:27)
[2025-02-08] MEDS: TAMOXIFEN CITRATE 10 MG TABLET PO SCH (09:30)
[2025-02-08] MEDS: INSULIN ASPART PER UNIT CHARGE SC SCH (09:30)
[2025-02-08] MEDS: SODIUM CHLORIDE 0.9% 1,000 ML IV SCH (11:08)
[2025-02-08] MEDS: POTASSIUM CHLORIDE CRTAB 20 MEQ TABCR PO ONE (11:08)
[2025-02-08 15:26] LABS: Protein Creatinine Ratio Urine 0.2 (0-0.2); Total Protein Urine Random 8.3 mg/dl (0-11.9)
[2025-02-08] MEDS: MICONAZOLE NITRATE POWDER 85 GM EXT PRN (17:25)
--- NOTE | 2025-02-08 19:07 | Hospitalist Progress Note ---
Date of Service February 08, 2025 Assessment & Plan (1) YADY (acute kidney injury): (2) Lower extremity venous stasis: (3) Type 2 diabetes mellitus: (4) DVT (deep venous thrombosis): (5) DCIS (ductal carcinoma in situ) of breast: Plan 74-year-old female presents with lower extremity swelling erythema and acute kidney injury. 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 #Acute kidney injury. Patient has chronic kidney disease based upon hypertension and diabetes. Patient was recently put on Lasix and hydrochlorothiazide for lower extremity swelling and subsequently has developed acute kidney injury. She has been taking daily ibuprofen. We are in a heat wave so possibly was volume depleted -UA was negative no sediment, obtained prot/Cr which was normal, urine sodium very elevated c/w recent diuretic, renal ultrasound normal -Cr improved to 1.77 overnight after some gentle IVF -500 mL NS IV today -monitor Cr and UOP -medically ready for discharge in AM if continued improvement #Chest pain/pressure - nonexertional and reported this evening -not very suspicious for angina but has numerous CV risk factors -ordered STAT EKG and HS-troponin. Personally reviewed EKG tracing - sinus, occ PVC, poor RWP, no acute ischemic changes -ordered trial dose of maalox, scheduled APAP for arthritis/MSK -discussed with bedside RN #Lower extremity swelling. This appears to be chronic venous stasis likely contributed to by her morbid obesity and previous DVT. Her last echocardiogram was 2021 at that time she had a normal echocardiogram. Subsequently her lower extremities are likely chronic venous stasis and difficult to treat with loop diuretics. Will have wound care evaluate the patient's wounds and also to determine if compression wraps are good for her. She has used prescribed has not worn them for some time. Her family is out of town which usually provides her care and she says she has been eating canned vegetable soup at home which likely creates an increase salt load to increase her swelling -counseled on elevation of LE at home and reduced salt intake #Ambulatory dysfunction reportedly the patient lives alone although only having 4 stairs having difficulty getting around due to her lower extremity swelling deceptively a PT OT evaluation later taken determine if rehab is needed. -PT/OT - recommendations reviewed - short term rehab at [facility] #Regarding her diabetes she typically is on Mounjaro metformin. A1c at goal of 6.1% -held, continue PRN premeal insulin #Hypertension patient continues on metoprolol 25 mg a day holding HCTZ/lisinopril #History of breast cancer patient remains on tamoxifen therapy #DVT prevention is Xarelto which she takes for chronic lower extremity DVT treatment Admission and Anticipated Discharge Date Admission Date: February 07, 2025 Subjective I saw her midday She has no A/C, using a fan and drinking water No N/V/D Had been taking ibuprofen maybe daily for joint pains This evening c/o intermittent nonexertional chest pain/tightness Physical Exam 2 Physical Exam: Last 24h vitals reviewed GEN: no acute distress, sitting in bed HEENT: pupils equal, sclerae anicteric, moist MM RESP: normal WOB, CTAB CV: reg no mrg ABD: soft/nt/nd +BT : no pinon - good UOP in purewick, yellow urine EXT: moderate bilateral LE edema, kerlix wraps around both shins SKIN: warm and dry, no generalized rashes NEURO: AOx person, place, and situation. Face symmetric, speech normal, moves 4 ext spontaneously and equally Results & Data Results & Data Vital Signs (Past 12 Hours) Vital Signs Temp Pulse Pulse Resp BP BP Pulse Ox 02/08/25 18:41 36.8 C 81 103/57 L 92 02/08/25 15:43 36.3 C L 67 18 106/68 92 02/08/25 07:44 36.7 C 86 18 117/71 93 O2 Del Method 02/08/25 18:41 Room Air 02/08/25 15:43 Room Air 02/08/25 07:44 Room Air Laboratory Results 02/08/25 04:15 02/08/25 04:15 Urine Cr 54 [place] 93 Prot/Cr 0.2 A1c 6.1% PG Care Time/CCT Total # of Minutes Spent Total Time Spent with Patient: Total time spent is greater than 50% in coordination of care (as documented) at patient's floor/unit and/or counseling patient: Coding Level of Care Code 98818 SUB INP/OBS CARE 3/50MIN Diagnoses YADY (acute kidney injury) N17.9 Lower extremity venous stasis I87.8 Type 2 diabetes mellitus without complication, without long-term current use of insulin E11.9 Diabetes mellitus termite treater helper insulin use: without fci use Diabetes mellitus complication status: without complication Deep venous thrombosis (DVT) of right peroneal vein, unspecified chronicity I82.451 DVT location: lower extremity Affected thrombotic vein of extremity: peroneal Chronicity: unspecified Laterality: right 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.12 Laterality: left (3) Type 2 diabetes mellitus Diabetes mellitus fci insulin use: without termite treater helper use Diabetes mellitus complication status: without complication Qualified Code(s): E11.9 - Type 2 diabetes mellitus without complications (4) DVT (deep venous thrombosis) DVT location: lower extremity Affected thrombotic vein of extremity: peroneal Chronicity: unspecified Laterality: right Qualified Code(s): I82.451 - Acute embolism and thrombosis of right peroneal vein (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
[2025-02-08] MEDS: ACETAMINOPHEN 325 MG TAB PO SCH (20:08)
[2025-02-08] MEDS: ALUMINUM/MAGNESIUM SUSP 30 ML UDC PO STA (20:10)
[2025-02-09 07:29] LABS: Anion Gap 4.0 (3-11); Blood Urea Nitrogen 23.0 mg/dl (6-23); Calcium 8.5 mg/dl (8.6-10.3); Carbon Dioxide 32.0 mmol/L (21-32); Chloride 92.0 mmol/L (98-107); Creatinine Clr Calc Pharmacy 75.8 ml/min; Glucose 104.0 mg/dl (70-99(Fasting)); Potassium 3.4 mmol/L (3.5-5.1); Sodium 128.0 mmol/L (136-145)
[2025-02-09] MEDS: cefTRIAXone SODIUM 2,000 MG/50 ML BAG IV SCH (13:32)
--- NOTE | 2025-02-09 15:40 | Electrocardiogram Report ---
Test Reason : Blood Pressure : */* mmHG Vent. Rate : 82 BPM Atrial Rate : 82 BPM P-R Int : 166 ms QRS Dur : 90 ms QT Int : 376 ms P-R-T Axes : 36 -29 14 degrees QTcB Int : 439 ms Sinus rhythm with occasional Premature ventricular complexes Voltage criteria for left ventricular hypertrophy Abnormal ECG When compared with ECG of 08-Mar-2024 11:58, Premature ventricular complexes are now Present Borderline criteria for Lateral infarct are no longer Present Nonspecific T wave abnormality no longer evident in Lateral leads Confirmed by Evelio Yuan ([id number]) on 02/09/2025 3:40:38 PM Referred By: REFERRED SELF Confirmed By: Evelio Yuan
[2025-02-09] MEDS: RIVAROXABAN 20 MG TAB PO SCH (16:44)
--- NOTE | 2025-02-09 19:26 | Discharge Summary ---
Discharge Summary Date of Service February 09, 2025 Principal Dx & Hospital Course #1 = Principal Diagnosis Admission HPI Per Admitting Provider 34-year-old female presents with complaints of difficulty walking due to leg swelling. Patient history of chronic venous stasis and history of right lower extremity DVT. She reportedly was started on Lasix as an outpatient for lower extremity swelling. This did not help. At that time her primary care also was concerned about infection and put her on cephalexin. The patient today has acute kidney injury with a baseline history of chronic kidney disease based on hypertension and diabetes. Her BUN/creatinine are 65 and 2.02. He is recommended for admission due to acute kidney injury. Patient seems somewhat this invested in her health care she reportedly ate vegetable soup for lunch out of a can we talked little bit about salt restriction she does live alone. She also her daughter who is her local caregiver who is away on a trip which likely leads to some worsening of her chronic conditions. Discharge Plan Discharge Items Reason For Visit: ACUTE KIDNEY INJURY Condition on Discharge: Fair Follow-up/Referrals: Hailey Munoz MD [Primary Care Provider] - Medications and DC Order Prescriptions: No Action levothyroxine 200 mcg capsule 200 mcg PO DAILY nystatin 100,000 unit/gram powder 1 applic topical BID PRN loratadine [Claritin] 10 mg tablet 10 mg PO QAM Qty: 90 0RF albuterol sulfate [Ventolin HFA] 90 mcg/actuation HFA aerosol inhaler 2 puff INH QID PRN (Reason: sob) Qty: 18 1RF (DME) Accu-Chek Guide test strips Strip See Dose Instructions .ROUTE .MEDSUPPLY Qty: 100 1RF Dose Instruction: As directed Rx Instructions: check blood sugar 1 time per week; dx code- E11.9 (DME) lancets [Accu-Chek Fastclix Lancet Drum] [facility] See Dose Instructions .ROUTE .MEDSUPPLY Qty: 200 1RF Dose Instruction: As directed Rx Instructions: test one time per week; dx code- E11.9 venlafaxine [Effexor XR] 150 mg capsule,extended release 24hr 150 mg PO DAILY Qty: 90 3RF Xarelto 20 mg tablet 20 mg PO QPM Qty: 90 1RF Rx Instructions: must administer with evening meal tamoxifen 20 mg tablet 20 mg PO QAM Qty: 90 2RF lisinopril 20 mg tablet 10 mg PO QAM Qty: 45 3RF Patient Comments: QAM oxybutynin chloride 10 mg tablet extended release 24hr 10 mg PO QAM Qty: 90 3RF omeprazole 20 mg capsule,delayed release(DR/EC) 40 mg PO QPM Qty: 180 1RF metformin 500 mg tablet 250 mg PO BID Qty: 90 3RF metoprolol succinate 25 mg tablet extended release 24 hr See Rx Instructions .ROUTE .COMPLEX Qty: 90 3RF Dose Instruction: TAKE 1 TABLET BY MOUTH DAILY. Rx Instructions: TAKE 1 TABLET BY MOUTH DAILY. Mounjaro 5 mg/0.5 mL pen injector 5 mg SUBCUT WK Qty: 4 3RF montelukast [Singulair] 10 mg tablet 10 mg PO QPM Qty: 90 1RF Patient Comments: HS simvastatin [Zocor] 40 mg tablet 40 mg PO HS Qty: 90 1RF hydrochlorothiazide 25 mg tablet 25 mg PO QAM Qty: 90 1RF Patient Comments: QAM Centrum Silver 0.4-300-250 mg-mcg-mcg tablet 1 tab PO QAM cephalexin 500 mg capsule 500 mg PO Q8H Qty: 30 0RF furosemide 40 mg tablet 40 mg PO DAILY PRN (Reason: edema) Qty: 30 5RF (DME) lancing device with lancets [Accu-Chek FastClix Lancing Dev] Kit See Rx Instructions .Route Qty: 1 3RF Rx Instructions: TEST ONCE WEEKLY (DME) compress.stocking,knee,reg,lrg Misc See Rx Instructions .Route Qty: 2 0RF Rx Instructions: Use for swelling mometasone 50 mcg/actuation [place],Non-Aerosol 2 spray INTRANASAL DAILY sodium chloride [Iftikhar 128] 5 % Ointment 1 applic OPHTHALMIC (EYE) HS vitamin E 268 mg (400 unit) Capsule 268 mg PO QPM calcium carbonate [Tums Ultra] 400 mg calcium (1,000 mg) Tablet,Chewable 400 mg PO QAM miconazole nitrate [Desenex] 2 % Powder 1 applic EXT PRN PRN (Reason: skin irritation) Qty: 85 0RF omega 5-wxt-dgp-fish oil [Fish Oil] 1,000 mg (120 mg-180 mg) Capsule 1 cap PO QPM Krames/Other Patient Handouts: Managing Type 2 Diabetes Admission Data Admit Date/Time: 02/07/25 20:30 Attending Provider: Leena Portillo Admit Provider: Lloyd Patricio Primary Care Provider: Hailey Munoz Other Providers: Lloyd Patricio; IRB Approved Study,Shanice; [facility]; [facility]; [place],[facility] Stay Data Consultations 02/07/25 20:18 ED Decision to Admit Stat Diagnostic Imagining Performed 02/08/25 US renal/blad retro comp Routine Coding
--- NOTE | 2025-02-09 19:32 | Hospitalist Progress Note ---
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 #Acute kidney injury. Patient has chronic kidney disease based upon hypertension and diabetes. Patient was recently put on Lasix and hydrochlorothiazide for lower extremity swelling and subsequently has developed acute kidney injury. She has been taking daily ibuprofen. We are in a heat wave so possibly was volume depleted -UA was negative no sediment, obtained prot/Cr which was normal, urine sodium very elevated c/w recent diuretic, renal ultrasound normal - Treated with gentle IV fluids diuretics and lisinopril have been held -Cr resolved to baseline of 0.8 today - she is more hyponatremic with sodium of 127 this could be related to some mild volume overload, will simply observe and recheck BMP tomorrow morning I doubt this is symptomatic -monitor Cr and UOP #Chest pain/pressure - nonexertional and reported evening 02/08 -not very suspicious for angina but has numerous CV risk factors - EKG stable without acute ischemic changes, serial troponin was normal -ordered trial dose of maalox, scheduled APAP for arthritis/MSK - no further chest pain reported #Lower extremity swelling. This appears to be chronic venous stasis likely contributed to by her morbid obesity and previous DVT. Her last echocardiogram was 2021 at that time she had a normal echocardiogram. Subsequently her lower extremities are likely chronic venous stasis and difficult to treat with loop diuretics. -counseled on elevation of LE at home and reduced salt intake wound nurse consulted, appreciate input Danielle however refused compression wraps today - she may have a mild cellulitis around the right lower extremity venous stasis ulcer I started some ceftriaxone we will see if there is any improvement in the erythema overnight #Ambulatory dysfunction reportedly the patient lives alone although only having 4 stairs having difficulty getting around due to her lower extremity swelling deceptively a PT OT evaluation later taken determine if rehab is needed. -PT/OT - recommendations reviewed - short term rehab at [facility] #Regarding her diabetes she typically is on Mounjaro metformin. A1c at goal of 6.1% -held, continue PRN premeal insulin. Blood glucoses reviewed and at goal last 24 hours #Hypertension patient continues on metoprolol 25 mg a day holding HCTZ/lisinopril. remains normotensive #History of breast cancer patient remains on tamoxifen therapy #DVT prevention is Xarelto which she takes for chronic lower extremity DVT treatment Admission and Anticipated Discharge Date Admission Date: February 07, 2025 Subjective feeling okay and no physical complaints, allen wounds are a little bit less painful, seems to be a little confused and with some questionable asterixis no sedating medications were given Physical Exam 2 Physical Exam: Last 24h vitals reviewed GEN: no acute distress, sitting in bed awake HEENT: pupils equal, sclerae anicteric, moist MM RESP: normal WOB, CTAB CV: reg no mrg ABD: soft/nt/nd +BT : no pinon - good UOP in purewick, yellow urine EXT: bilateral woody lower extremity edema and venous stasis dermatitis, edema improved compared to admission, large venous stasis ulcer medial right allen with surrounding erythema that is a bit out of proportion to the rest of her venous stasis changes, the wound is a bit gooey but this may be from the Aquacel. Left lower extremity without any appearance of cellulitis or wound infection SKIN: warm and dry, no generalized rashes NEURO: AOx person, place, and situation. seems a little bit more lethargic and slightly confused. She is having some asterixis type movements of her feet but not exactly reproducible with her hands/arms. Face symmetric, speech normal, moves 4 ext spontaneously and equally Results & Data Results & Data Vital Signs (Past 12 Hours) Vital Signs Temp Pulse Resp BP Pulse Ox O2 Del Method 02/09/25 19:20 36.3 C L 72 16 113/66 93 Room Air 02/09/25 15:39 36.5 C 73 16 126/79 96 Room Air 02/09/25 09:33 36.6 C 84 18 119/77 93 Room Air Laboratory Results 02/08/25 04:15 02/09/25 06:42 PG Care Time/CCT Total # of Minutes Spent Total Time Spent with Patient: Total time spent is greater than 50% in coordination of care (as documented) at patient's floor/unit and/or counseling patient: Coding Level of Care Code 96773 SUB INP/OBS CARE MIN Diagnoses YADY (acute kidney injury) N17.9 Lower extremity venous stasis I87.8 Type 2 diabetes mellitus without complication, without long-term current use of insulin E11.9 Diabetes mellitus senior living insulin use: without senior living use Diabetes mellitus complication status: without complication Deep venous thrombosis (DVT) of right peroneal vein, unspecified chronicity I82.451 DVT location: lower extremity Affected thrombotic vein of extremity: peroneal Chronicity: unspecified Laterality: right 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.12 Laterality: left (3) Type 2 diabetes mellitus Diabetes mellitus senior living insulin use: without senior living use Diabetes mellitus complication status: without complication Qualified Code(s): E11.9 - Type 2 diabetes mellitus without complications (4) DVT (deep venous thrombosis) DVT location: lower extremity Affected thrombotic vein of extremity: peroneal Chronicity: unspecified Laterality: right Qualified Code(s): I82.451 - Acute embolism and thrombosis of right peroneal vein (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
[2025-02-10 08:27] LABS: Hematocrit (blood only) 29.6 % (37.0-47.0); Hemoglobin 10.5 g/dl (12.0-16.0); Mean Corpuscular Hemoglobin 29.7 pg (25.0-34.0); Mean Corpuscular Volume 83.9 fL (80.0-100.0); Platelet Count 238 K/uL (130-400); RDW Standard Deviation 36.1 fL (36.4-46.3); Red Blood Count 3.53 M/uL (4.20-5.40); White Blood Count 8.74 K/ul (4.8-10.8)
[2025-02-10 08:39] LABS: Anion Gap 4.0 (3-11); Blood Urea Nitrogen 14.0 mg/dl (6-23); Calcium 8.3 mg/dl (8.6-10.3); Carbon Dioxide 30.0 mmol/L (21-32); Chloride 89.0 mmol/L (98-107); Creatinine Clr Calc Pharmacy 96.5 ml/min; Glucose 89.0 mg/dl (70-99(Fasting)); Potassium 3.5 mmol/L (3.5-5.1); Sodium 123.0 mmol/L (136-145)
[2025-02-10] MEDS: FUROSEMIDE 40 MG/4 ML VIAL IV ONE (16:17)
[2025-02-10] MEDS: POTASSIUM CHLORIDE CRTAB 20 MEQ TABCR PO ONE (16:25)
[2025-02-10 19:11] LABS: Anion Gap 7.0 (3-11); Blood Urea Nitrogen 12.0 mg/dl (6-23); Calcium 8.6 mg/dl (8.6-10.3); Carbon Dioxide 31.0 mmol/L (21-32); Chloride 85.0 mmol/L (98-107); Creatinine Clr Calc Pharmacy 83.1 ml/min; Glucose 109.0 mg/dl (70-99(Fasting)); Potassium 3.5 mmol/L (3.5-5.1); Sodium 123.0 mmol/L (136-145)
--- NOTE | 2025-02-10 19:42 | Hospitalist Progress Note ---
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 #Acute kidney injury. Patient has chronic kidney disease based upon hypertension and diabetes. Patient was recently put on Lasix and hydrochlorothiazide for lower extremity swelling and subsequently has developed acute kidney injury. She has been taking daily ibuprofen. We are in a heat wave so possibly was volume depleted -UA was negative no sediment, obtained prot/Cr which was normal, urine sodium very elevated c/w recent diuretic, renal ultrasound normal - Treated with gentle IV fluids diuretics and lisinopril were held -Cr resolved to baseline of 0.72 today #Acute hyponatremia - developed since admission. She was clearly hypovolemic on admission treated with judicious IV saline and diuretics held. Now she appears hypervolemic on exam. Repeat urine sodium lower today but still quite elevated and unclear whether still effect of previous diuretics (has been apx 48h since dose). Na 127 yesterday and 123 today. Gave lasix 40 mg IV x 1 for possible hypervolemic hyponatremia but sodium stayed 123 tonight. Has not been symptomatic. If she has component of SIADH I do not know what the acute trigger would be. Could be renal salt wasting in recovery phase of YADY. Sodium mid 130s on review of old labs -repeat BMP in AM -continue assess response to lasix -normal salt diet, salt tab 1g bid -gentle fluid restriction of 2L to prevent overdrinking -bid protein supplement #Chest pain/pressure - nonexertional and reported evening 02/08 -not very suspicious for angina but has numerous CV risk factors - EKG stable without acute ischemic changes, serial troponin was normal -ordered trial dose of maalox, scheduled APAP for arthritis/MSK - no further chest pain reported #Lower extremity swelling. This appears to be chronic venous stasis likely contributed to by her morbid obesity and previous DVT. Her last echocardiogram was 2021 at that time she had a normal echocardiogram. Subsequently her lower extremities are likely chronic venous stasis and difficult to treat with loop diuretics. -counseled on elevation of LE at home and reduced salt intake wound nurse consulted, appreciate input Danielle however refused compression wraps - she may have a mild cellulitis around the right lower extremity venous stasis ulcer I started some ceftriaxone = examine in AM #Ambulatory dysfunction -PT/OT - recommendations reviewed - short term rehab at SNF. insurance did not approve acute rehab #Regarding her diabetes she typically is on Mounjaro metformin. A1c at goal of 6.1% -held, continue PRN premeal insulin. Blood glucoses reviewed and at goal last 24 hours #Hypertension patient continues on metoprolol 25 mg a day holding HCTZ/lisinopril. remains normotensive #History of breast cancer patient remains on tamoxifen therapy #DVT prevention is Xarelto which she takes for chronic lower extremity DVT treatment Admission and Anticipated Discharge Date Admission Date: February 07, 2025 Subjective feeling pretty ok. LE wounds not painful at rest. Not short of breath. Physical Exam 2 Physical Exam: Last 24h vitals reviewed GEN: no acute distress, sitting in bed awake HEENT: pupils equal, sclerae anicteric, moist MM RESP: normal wob, bilateral crackles posteriorly 3/[address] up no wheezing CV: reg no mrg, JVD present ABD: soft/nt/nd +BT : no pinon - good UOP in purewick, yellow urine EXT: bilateral woody lower extremity edema and venous stasis dermatitis, edema improved compared to admission, wounds oralia LE dressed no strikethrough NEURO: AOx person, place, and situation. more alert and not sleepy or lethargic. gets up to EOB with OT, needed help, moves 4 ext spontaneously and equally Results & Data Results & Data Vital Signs (Past 12 Hours) Vital Signs Temp Pulse Resp BP Pulse Ox O2 Del Method 02/10/25 16:16 131/67 02/10/25 15:23 36.5 C 69 16 130/78 95 Room Air 02/10/25 08:10 82 133/68 Laboratory Results 02/10/25 07:57 02/10/25 18:32 PG Care Time/CCT Total # of Minutes Spent Total Time Spent with Patient: Total time spent is greater than 50% in coordination of care (as documented) at patient's floor/unit and/or counseling patient: Coding Level of Care Code 85994 SUB INP/OBS CARE 50MIN Diagnoses YADY (acute kidney injury) N17.9 Lower extremity venous stasis I87.8 Type 2 diabetes mellitus without complication, without long-term current use of insulin E11.9 Diabetes mellitus rn long term care insulin use: without penitentiary use Diabetes mellitus complication status: without complication Deep venous thrombosis (DVT) of right peroneal vein, unspecified chronicity I82.451 DVT location: lower extremity Affected thrombotic vein of extremity: peroneal Chronicity: unspecified Laterality: right 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.12 Laterality: left (3) Type 2 diabetes mellitus Diabetes mellitus rn long term care insulin use: without penitentiary use Diabetes mellitus complication status: without complication Qualified Code(s): E11.9 - Type 2 diabetes mellitus without complications (4) DVT (deep venous thrombosis) DVT location: lower extremity Affected thrombotic vein of extremity: peroneal Chronicity: unspecified Laterality: right Qualified Code(s): I82.451 - Acute embolism and thrombosis of right peroneal vein (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
[2025-02-10] MEDS: SODIUM CHLORIDE 1 GM TABLET PO SCH (20:29)
[2025-02-11 07:32] LABS: Anion Gap 6.0 (3-11); Blood Urea Nitrogen 10.0 mg/dl (6-23); Calcium 8.5 mg/dl (8.6-10.3); Carbon Dioxide 31.0 mmol/L (21-32); Chloride 91.0 mmol/L (98-107); Creatinine Clr Calc Pharmacy 95.0 ml/min; Glucose 84.0 mg/dl (70-99(Fasting)); Potassium 3.6 mmol/L (3.5-5.1); Sodium 128.0 mmol/L (136-145)
--- NOTE | 2025-02-11 08:21 | Hospitalist Progress Note ---
Date of Service February 11, 2025 Assessment & Plan (1) YADY (acute kidney injury): (2) Lower extremity venous stasis: (3) Type 2 diabetes mellitus: (4) DVT (deep venous thrombosis): Plan 74-year-old female presents with lower extremity swelling erythema and acute kidney injury. 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 #Acute kidney injury. Patient has chronic kidney disease based upon hypertension and diabetes. Patient was recently put on Lasix and hydrochlorothiazide for lower extremity swelling and subsequently has developed acute kidney injury. She has been taking daily ibuprofen. We are in a heat wave so possibly was volume depleted -UA was negative no sediment, obtained prot/Cr which was normal, urine sodium very elevated c/w recent diuretic, renal ultrasound normal -Treated with gentle IV fluids diuretics and lisinopril held. Resolved -Cr remains normal today, 0.6 #Acute hyponatremia - developed since admission. She was clearly hypovolemic on admission treated with judicious IV saline and diuretics held. hypervolemic on exam 02/10 Repeat urine sodium still quite elevated and unclear whether still effect of previous diuretics (had been apx 48h since dose). -[place] 50s and FeNa 0.9% on 02/10. Lasix 40 IV x 1 given 02/10 with no improvement in sodium -normal salt diet, salt tab 1g bid -gentle fluid restriction of 2L to prevent overdrinking - states she was drinking water constantly -bid protein supplement -improved from 123-->128 since last night -resume Lasix at 40 mg p.o. with 20 mill equivalents of potassium every other day, will not continue hydrochlorothiazide on discharge -recheck BMP now and every morning #Lower extremity swelling. primarily venous stasis disease -counseled on elevation of LE at home and reduced salt intake wound nurse consulted, appreciate input Danielle however refused compression wraps # right allen cellulitis surrounding venous stasis ulcertreated with ceftriaxone and nearly resolved, changed to p.o. Keflex total 5-day course #Ambulatory dysfunction -PT/OT - recommendations reviewed - short term rehab at SNF. insurance did not approve acute rehab #Regarding her diabetes she typically is on Mounjaro metformin. A1c at goal of 6.1% -held, continue PRN premeal insulin. BG at goal 02/11 #Hypertension patient continues on metoprolol 25 mg a day still holding lisinopril and I do not plan to resume hydrochlorothiazide. remains normotensive #History of breast cancer patient remains on tamoxifen therapy #DVT prevention is Xarelto which she takes for chronic lower extremity DVT treatment Admission and Anticipated Discharge Date Admission Date: February 07, 2025 Subjective Danielle is feeling pretty good this morning, she is eating no confusion or nausea vomiting. Seems that her bilateral lower extremity pain may be improved no shortness of breath or coughing Physical Exam 2 Physical Exam: Last 24h vitals reviewed GEN: no acute distress, sitting in bed awake, eating lunch HEENT: pupils equal, sclerae anicteric, moist MM RESP: normal wob, clear anteriorly CV: reg no mrg, cannot see JVP ABD: soft/nt/nd +BT EXT: bilateral woody lower extremity edema and venous stasis dermatitis, edema improved a lot compared to admission, right lower allen cellulitis surrounding medial venous stasis ulcer has improved a lot virtually resolved. Left ankle also less erythematous NEURO: AOx person, place, and situation. normal speech and mentation moves 4 extremities spontaneously Results & Data Results & Data Vital Signs (Past 12 Hours) Vital Signs Temp Pulse Resp BP Pulse Ox O2 Del Method 02/11/25 07:42 36.7 C 80 16 143/79 H 98 Room Air Laboratory Results 02/10/25 07:57 02/11/25 06:34 PG Care Time/CCT Total # of Minutes Spent Total Time Spent with Patient: Total time spent is greater than 50% in coordination of care (as documented) at patient's floor/unit and/or counseling patient: Coding Level of Care Code 95292 SUB INP/OBS CARE 2/35MIN Diagnoses YADY (acute kidney injury) N17.9 Lower extremity venous stasis I87.8 Type 2 diabetes mellitus without complication, without long-term current use of insulin E11.9 Diabetes mellitus complication status: without complication Diabetes mellitus penitentiary insulin use: without survey research professor use Deep venous thrombosis (DVT) of right peroneal vein, unspecified chronicity I82.451 Affected thrombotic vein of extremity: peroneal Chronicity: unspecified DVT location: lower extremity Laterality: right (3) Type 2 diabetes mellitus Diabetes mellitus complication status: without complication Diabetes mellitus survey research professor insulin use: without survey research professor use Qualified Code(s): E11.9 - Type 2 diabetes mellitus without complications (4) DVT (deep venous thrombosis) Affected thrombotic vein of extremity: peroneal Chronicity: unspecified DVT location: lower extremity Laterality: right Qualified Code(s): I82.451 - Acute embolism and thrombosis of right peroneal vein
[2025-02-11] MEDS: POTASSIUM CHLORIDE CRTAB 20 MEQ TABCR PO SCH (16:11)
[2025-02-11] MEDS: FUROSEMIDE 40 MG TAB PO ONE (16:11)
[2025-02-11 16:54] LABS: Anion Gap 5.0 (3-11); Blood Urea Nitrogen 11.0 mg/dl (6-23); Calcium 8.4 mg/dl (8.6-10.3); Carbon Dioxide 31.0 mmol/L (21-32); Chloride 91.0 mmol/L (98-107); Creatinine Clr Calc Pharmacy 99.7 ml/min; Glucose 107.0 mg/dl (70-99(Fasting)); Potassium 4.2 mmol/L (3.5-5.1); Sodium 127.0 mmol/L (136-145)
[2025-02-12 06:48] LABS: Hematocrit (blood only) 29.9 % (37.0-47.0); Hemoglobin 10.6 g/dl (12.0-16.0); Mean Corpuscular Hemoglobin 29.8 pg (25.0-34.0); Mean Corpuscular Volume 84.0 fL (80.0-100.0); Platelet Count 276 K/uL (130-400); RDW Standard Deviation 37.0 fL (36.4-46.3); Red Blood Count 3.56 M/uL (4.20-5.40); White Blood Count 7.32 K/ul (4.8-10.8)
[2025-02-12 07:08] LABS: Anion Gap 4.0 (3-11); Blood Urea Nitrogen 12.0 mg/dl (6-23); Calcium 8.3 mg/dl (8.6-10.3); Carbon Dioxide 31.0 mmol/L (21-32); Chloride 94.0 mmol/L (98-107); Creatinine Clr Calc Pharmacy 108.8 ml/min; Glucose 89.0 mg/dl (70-99(Fasting)); Potassium 3.9 mmol/L (3.5-5.1); Sodium 129.0 mmol/L (136-145)
[2025-02-12] MEDS: FUROSEMIDE 40 MG TAB PO SCH (08:44)
--- NOTE | 2025-02-12 14:31 | Hospitalist Progress Note ---
Date of Service February 12, 2025 Assessment & Plan (1) YADY (acute kidney injury): (2) Lower extremity venous stasis: (3) Type 2 diabetes mellitus: (4) DVT (deep venous thrombosis): Plan 74-year-old female presents with lower extremity swelling erythema and acute kidney injury. 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 #Acute kidney injury. Patient has chronic kidney disease based upon hypertension and diabetes. Patient was recently put on Lasix and hydrochlorothiazide for lower extremity swelling and subsequently has developed acute kidney injury. She has been taking daily ibuprofen. We are in a heat wave so possibly was volume depleted -UA was negative no sediment, obtained prot/Cr which was normal, urine sodium very elevated c/w recent diuretic, renal ultrasound normal -Treated with gentle IV fluids diuretics and lisinopril held. Resolved -Cr remains normal today, 0.55 -resume lisiniopril at lower dose once we're done diuresing -no NSAIDS #Acute hyponatremia - developed since admission. She was clearly hypovolemic on admission treated with judicious IV saline and diuretics held. hypervolemic on exam 02/10 Repeat urine sodium still quite elevated and unclear whether still effect of previous diuretics (had been apx 48h since dose). -[place] 50s and FeNa 0.9% on 02/10. Lasix 40 IV x 1 given 02/10 with no improvement in sodium -normal salt diet, salt tab 1g bid -gentle fluid restriction of 2L to prevent overdrinking - states she was drinking water constantly -bid protein supplement -improved from 123-->129 -resume Lasix at 40 mg p.o. with 20 mill equivalents of potassium every other day, will not continue hydrochlorothiazide on discharge. Cough/lung crackles today. Will add lasix 40 IV x 1 -recheck BMP now and every morning #Lower extremity swelling. primarily venous stasis disease -counseled on elevation of LE at home and reduced salt intake wound nurse consulted, appreciate input Danielle however refused compression wraps # right allen cellulitis surrounding venous stasis ulcertreated with ceftriaxone and nearly resolved, however culture just grew MRSA - ordered po doxy 100 mg bid x 1 week #Ambulatory dysfunction -PT/OT - recommendations reviewed - short term rehab at [facility]. insurance did not approve acute rehab #Regarding her diabetes she typically is on Mounjaro metformin. A1c at goal of 6.1% -held, continue PRN premeal insulin. BG at goal 02/12 #Hypertension patient continues on metoprolol 25 mg a day still holding lisinopril and I do not plan to resume hydrochlorothiazide. remains normotensive #History of breast cancer patient remains on tamoxifen therapy #DVT prevention is Xarelto which she takes for chronic lower extremity DVT treatment Admission and Anticipated Discharge Date Admission Date: February 07, 2025 Subjective has cough and heard wheeze this AM. Not on O2 not short of breath nonproductive cough. no chest pain legs doing much better Physical Exam 2 Physical Exam: Last 24h vitals reviewed GEN: awake sitting up in bed HEENT: pupils equal, sclerae anicteric, moist MM RESP: normal wob, bilateral fine crackles 2/[address] up CV: reg no mrg, cannot see JVP ABD: soft/nt/nd +BT EXT: bilateral woody lower extremity edema and venous stasis dermatitis, edema improved a lot compared to admission, bilateral LE redness resolved. Left ankle also less erythematous NEURO: AOx person, place, and situation. normal speech and mentation moves 4 extremities spontaneously Results & Data Results & Data Vital Signs (Past 12 Hours) Vital Signs Temp Pulse Resp BP Pulse Ox O2 Del Method 02/12/25 07:41 36.5 C 82 16 147/76 H 98 Room Air Laboratory Results 02/12/25 06:27 02/12/25 06:27 PG Care Time/CCT Total # of Minutes Spent Total Time Spent with Patient: Total time spent is greater than 50% in coordination of care (as documented) at patient's floor/unit and/or counseling patient: Coding Level of Care Code 79034 SUB INP/OBS CARE 2/35MIN Diagnoses YADY (acute kidney injury) N17.9 Lower extremity venous stasis I87.8 Type 2 diabetes mellitus without complication, without long-term current use of insulin E11.9 Diabetes mellitus terminal computer operator insulin use: without longterm use Diabetes mellitus complication status: without complication Deep venous thrombosis (DVT) of right peroneal vein, unspecified chronicity I82.451 DVT location: lower extremity Affected thrombotic vein of extremity: peroneal Chronicity: unspecified Laterality: right (3) Type 2 diabetes mellitus Diabetes mellitus terminal computer operator insulin use: without longterm use Diabetes mellitus complication status: without complication Qualified Code(s): E11.9 - Type 2 diabetes mellitus without complications (4) DVT (deep venous thrombosis) DVT location: lower extremity Affected thrombotic vein of extremity: peroneal Chronicity: unspecified Laterality: right Qualified Code(s): I82.451 - Acute embolism and thrombosis of right peroneal vein
[2025-02-12] MEDS: POTASSIUM CHLORIDE CRTAB 20 MEQ TABCR PO ONE (15:36)
[2025-02-12] MEDS: DOXYCYCLINE HYCLATE 100 MG CAP PO SCH (20:20)
[2025-02-13 07:19] LABS: Anion Gap 5.0 (3-11); Calcium 8.6 mg/dl (8.6-10.3); Carbon Dioxide 28.0 mmol/L (21-32); Chloride 97.0 mmol/L (98-107); Potassium 4.8 mmol/L (3.5-5.1); Sodium 130.0 mmol/L (136-145)
[2025-02-13 07:23] LABS: Blood Urea Nitrogen 20.0 mg/dl (6-23); Creatinine Clr Calc Pharmacy 82.0 ml/min; Glucose 92.0 mg/dl (70-99(Fasting))
--- NOTE | 2025-02-13 18:53 | Hospitalist Progress Note ---
Date of Service February 13, 2025 Assessment & Plan (1) YADY (acute kidney injury): (2) Lower extremity venous stasis: (3) Type 2 diabetes mellitus: (4) DVT (deep venous thrombosis): Plan 74-year-old female presents with lower extremity swelling erythema and acute kidney injury. Patient has a history of diabetes, hypertension, chronic lower extremity swelling with venous stasis disease, previous right lower extremity DVT on chronic anticoagulation, recurrent breast cancer treated with radiation chemotherapy and currently on tamoxifen, and COPD although no smoking history. overall this hospital course the first 2 days were focused on treating the YADY. She received gentle IV fluids probably a total of 2 L over 48 hours. Lisinopril was held. YADY resolved. At that point she developed abrupt onset of acute hyponatremia and had evidence of volume overload and pulmonary edema on exam. Urine sodium persisted high on recheck even after 48 hours without diuretics. IV Lasix was given but sodium did not initially increase. Sodium eventually increased to 130 with several days of gentle diuresis and salt tabs, gentle fluid restriction. Currently she is medically ready for discharge to half-way facility, awaiting a bed. #Acute kidney injury. Patient has chronic kidney disease based upon hypertension and diabetes. Patient was recently put on Lasix and hydrochlorothiazide for lower extremity swelling and subsequently has developed acute kidney injury. She has been taking daily ibuprofen. We are in a heat wave so possibly was volume depleted. -UA was negative no sediment, obtained prot/Cr which was normal, urine sodium very elevated c/w recent diuretic, renal ultrasound normal -Treated with gentle IV fluids diuretics and lisinopril held. Resolved -Cr remains normal today, though slightly more elevated after diuresis at 0.7 -resume lisinopril at lower dose once we're done diuresing - perhaps tomorrow -no NSAIDS #Acute hyponatremia - developed after admission. treated with judicious IV saline and diuretics held First few days of admission. hypervolemic on exam 02/10-02/12 # acute diastolic heart failure - developed after gentle fluid resuscitation at the beginning of the admission. Unable to determine whether there is any chronic component at this time. Notably her leg edema markedly improved this admission with elevation and diuresis. Repeat urine sodium still quite elevated and unclear whether still effect of previous diuretics (had been apx 48h since dose). hyponatremia is probably a mixed picture, cannot rule out some component of renal salt wasting either because of recovery of YADY or some SIADH, she was also hypervolemic. -[place] 50s and FeNa 0.9% on 02/10 -normal salt diet, salt tab 1g bid -gentle fluid restriction of 2L to prevent overdrinking - states she was drinking water constantly -bid protein supplement -cautiously diuresed approaching euvolemia today -improved from 123-->129-->130 -resume Lasix at 40 mg p.o. with 20 mill equivalents of potassium every other day, will not continue hydrochlorothiazide on discharge. lung exam has cleared up a lot - a.m. BMP, Monitor at least weekly as outpatient and adjust diuretics/salt replacement as indicated. unclear whether this issue will persist or resolved within a few weeks. #Lower extremity swelling. primarily venous stasis disease, Possibility of chronic diastolic heart failure as discussed above -counseled on elevation of LE at home and reduced salt intake wound nurse consulted, appreciate input Danielle however refused compression wraps - continue diuretics as discussed above # right allen cellulitis surrounding venous stasis ulcertreated with ceftriaxone and nearly resolved, however culture grew MRSA - ordered po doxy 100 mg bid x 1 week #Ambulatory dysfunction -PT/OT - recommendations reviewed - short term rehab at [facility]. #Regarding her diabetes she typically is on Mounjaro metformin. A1c at goal of 6.1% -held, continue PRN premeal insulin. BG at goal 02/13 #Hypertension patient continues on metoprolol 25 mg a day still holding lisinopril and I do not plan to resume hydrochlorothiazide. remains normotensive on the balance #History of breast cancer patient remains on tamoxifen therapy #chronic lower extremity DVT treatment - continue Xarelto Admission and Anticipated Discharge Date Admission Date: February 07, 2025 Subjective Danielle is doing well breathing continues to improve, cough is improved not short of breath today no wheezing both legs with much less edema and less tender, redness resolved Physical Exam 2 Physical Exam: Last 24h vitals reviewed GEN: sitting in chair with feet up HEENT: pupils equal, sclerae anicteric, moist MM RESP: normal wob, mild bibasilar crackles which are faint, significant improvement, no wheezing CV: reg no mrg, cannot see JVP ABD: soft/nt/nd +BT EXT: bilateral woody lower extremity edema and venous stasis dermatitis, massive improvement since admission, bilateral LE redness resolved. bilateral venous stasis ulcers dressed NEURO: AOx person, place, and situation. normal speech and mentation moves 4 extremities spontaneously Results & Data Results & Data Vital Signs (Past 12 Hours) Vital Signs Temp Pulse Resp BP Pulse Ox O2 Del Method 02/13/25 14:36 36.6 C 79 16 105/66 96 Room Air 02/13/25 07:20 36.4 C L 86 16 151/83 H 96 Room Air Laboratory Results 02/12/25 06:27 02/13/25 06:18 PG Care Time/CCT Total # of Minutes Spent Total Time Spent with Patient: Total time spent is greater than 50% in coordination of care (as documented) at patient's floor/unit and/or counseling patient: Coding Level of Care Code 87384 SUB INP/OBS CARE 2MIN Diagnoses YADY (acute kidney injury) N17.9 Lower extremity venous stasis I87.8 Type 2 diabetes mellitus without complication, without long-term current use of insulin E11.9 Diabetes mellitus senior living insulin use: without senior living use Diabetes mellitus complication status: without complication Deep venous thrombosis (DVT) of right peroneal vein, unspecified chronicity I82.451 DVT location: lower extremity Affected thrombotic vein of extremity: peroneal Chronicity: unspecified Laterality: right (3) Type 2 diabetes mellitus Diabetes mellitus senior living insulin use: without termite technician use Diabetes mellitus complication status: without complication Qualified Code(s): E11.9 - Type 2 diabetes mellitus without complications (4) DVT (deep venous thrombosis) DVT location: lower extremity Affected thrombotic vein of extremity: peroneal Chronicity: unspecified Laterality: right Qualified Code(s): I82.451 - Acute embolism and thrombosis of right peroneal vein
[2025-02-14 07:17] VITALS: RESP 16; TEMP 98.1; O2SAT 94
[2025-02-14 07:41] LABS: Anion Gap 5.0 (3-11); Blood Urea Nitrogen 26.0 mg/dl (6-23); Calcium 8.7 mg/dl (8.6-10.3); Carbon Dioxide 29.0 mmol/L (21-32); Chloride 98.0 mmol/L (98-107); Creatinine Clr Calc Pharmacy 79.8 ml/min; Glucose 88.0 mg/dl (70-99(Fasting)); Potassium 4.8 mmol/L (3.5-5.1); Sodium 132.0 mmol/L (136-145)
[2025-02-14 08:06] VITALS: BP 120/73; PULSE 87
--- NOTE | 2025-02-14 13:08 | Discharge Summary ---
Discharge Summary Date of Service February 14, 2025 Principal Dx & Hospital Course #1 = Principal Diagnosis (1) YADY (acute kidney injury): (2) Lower extremity venous stasis: (3) Type 2 diabetes mellitus: (4) DVT (deep venous thrombosis): Plan 74-year-old female presents with lower extremity swelling erythema and acute kidney injury. Patient has a history of diabetes, hypertension, chronic lower extremity swelling with venous stasis disease, previous right lower extremity DVT on chronic anticoagulation, recurrent breast cancer treated with radiation chemotherapy and currently on tamoxifen, and COPD although no smoking history. Overall this hospital course the first 2 days were focused on treating the YADY. She received gentle IV fluids probably a total of 2 L over 48 hours. Lisinopril was held. YADY resolved. At that point she developed abrupt onset of acute hyponatremia and had evidence of volume overload and pulmonary edema on exam. Urine sodium persisted high on recheck even after 48 hours without diuretics. IV Lasix was given but sodium did not initially increase. Sodium eventually increased to 132 with several days of gentle diuresis and salt tabs, gentle fluid restriction. Patient lives alone. Daughter is local caregiver. She is still having balance deficits at time of discharge. While both PT and OT recommended short rehab stay or SNF placement given global weakness, deconditioning, and significantly impaired ADLs, rehab authorization was denied on 02/11 and SNF authorization was denied on 02/14. Called for peer to peer on 02/14, this was denied due to patient's ability to walk on 125 feet with a walker; it was also stated that her wound care needs were not complex enough for SNF placement. We will plan to be discharged home on 02/14 with follow-up home health services (PT/OT/wound care) starting on 02/16. Day of discharge 02/14: Patient reports that she is tired, and had some difficulty sleeping last night, but she is in good spirits this morning. She is still having intermittent pain in her legs, which she attributes to her cellulitis and venous stasis ulcers. Patient reconfirms that she lives at home, and does report having "frequent falls" mainly when she is outside. Otherwise, she feels good and is eager for discharge today if possible. She reports she does have a good support system with her daughter (who lives nearby (at home, and manages her own medicine. ROS: Patient endorses pain in the lower extremities bilaterally, and generalized fatigue. Patient denies fever, chills, night sweats, chest pain, chest palpitations, SOB, abdominal pain, N/V/D, changes in urinary bowel habits, or numbness tingling in the arms or legs. #Acute kidney injury (Resolved) Patient has chronic kidney disease based upon hypertension and diabetes. Patient was recently put on Lasix and hydrochlorothiazide for lower extremity swelling and subsequently has developed acute kidney injury. She has been taking daily ibuprofen. We are in a heat wave so possibly was volume depleted. - UA was negative no sediment, obtained prot/Cr which was normal, urine sodium very elevated c/w recent diuretic, renal ultrasound normal - Treated with gentle IV fluids; diuretics and lisinopril initially held - Cr has improved from 2.02 on arrival to 0.75 on day of discharge - Recommend avoiding NSAIDs moving forward - HCTZ has been discontinued - Given resolution of patient's YADY, will plan to restart patient on lisinopril on discharge #Acute hyponatremia - developed after admission. treated with judicious IV saline and diuretics held First few days of admission. hypervolemic on exam 02/10-02/12 # acute diastolic heart failure - developed after gentle fluid resuscitation at the beginning of the admission. Unable to determine whether there is any chronic component at this time. Notably her leg edema markedly improved this admission with elevation and diuresis. Repeat urine sodium still quite elevated and unclear whether still effect of previous diuretics (had been apx 48h since dose). hyponatremia is probably a mixed picture, cannot rule out some component of renal salt wasting either because of recovery of YADY or some SIADH, she was also hypervolemic. -[place] 50s and FeNa 0.9% on 02/10 -normal salt diet, salt tab 1g bid -gentle fluid restriction of 2L to prevent overdrinking - states she was drinking water constantly -bid protein supplement -cautiously diuresed approaching euvolemia today -improved from 123-->129-->130-->132 -resume Lasix at 40 mg p.o. with 10 mill equivalents of potassium every other day - Will not resume HCTZ at time of discharge - a.m. BMP, Monitor at least weekly as outpatient and adjust diuretics/salt replacement as indicated. unclear whether this issue will persist or resolved within a few weeks. Recommend BMP 1 week after discharge #Lower extremity swelling. primarily venous stasis disease, Possibility of chronic diastolic heart failure as discussed above - counseled on elevation of LE at home and reduced salt intake wound nurse consulted, appreciate input Danielle however refused compression wraps - continue diuretics as discussed above #Right allen cellulitis surrounding venous stasis ulcertreated with ceftriaxone and nearly resolved, however culture grew MRSA - ordered po doxy 100 mg bid x 1 week Complete course of p.o. doxycycline upon discharge #Ambulatory dysfunction -PT/OT - recommendations reviewed -short-term rehab/SNF denied by insurance authorization Will plan for home health with PT/OT/wound care #Diabetes -She typically is on Mounjaro metformin. A1c at goal of 6.1% -Held, continue PRN premeal insulin. BG at goal 02/13 #Hypertension Patient continues on metoprolol 25 mg a day Restart lisinopril on discharge #History of breast cancer Patient remains on tamoxifen therapy #chronic lower extremity DVT treatment Continue Xarelto Disposition: Discharge home with home health follow-up Admission Exam Per Admitting Provider The patient appeared well nourished and normally developed. Patient is a flat affect Vital signs as documented. Head exam is normocephalic atraumatic Neck is without JVD, thyromegaly, or carotid bruits. Lungs are clear to auscultation, no focal loss of breath sounds Cardiac exam, Rhythm is regular.. No murmurs, rubs or gallops. Abdominal exam reveals normal bowel sounds, soft non tender, no masses Extremities are 2+ edema bilaterally. Shipping bottle legs. Circumferential erythema consistent with venous stasis dermatitis. Open areas worse on the right and left in the anterior aspect of her legs but this does not appear to be actively infected Neurologic exam is alert and oriented, no focal loss of strength or sensation Skin is with chronic venous stasis dermatitis Psychologically is without concerns for anxiety or depression. Discharge Exam General: no acute distress; pleasant affect; sitting upright in her chair doing crossword puzzles; non-toxic appearing; well-nourished; cooperative; SpO2 94% on RA HEENT: normocephalic, atraumatic; no scleral icterus; PERRLA; vision and hearing grossly intact Neck: supple; no lymphadenopathy; trachea midline Skin: warm, dry without signs of tenting; no cyanosis; no rashes, bruising, lesions, or erythema noted CV: chest wall NTP; RRR; S1/S2 normal; no murmurs/rubs/gallops; pulses intact and symmetric at radial, DP, and PT Lungs: no acute respiratory distress; symmetrical chest wall expansion; clear breath sounds across all lung meeks w/o adventitious sounds; no wheezing ABD: Soft, NTP; BS present; no rebound/guarding; no distention MSK: no tics or fasciculations LEs: Lower EXTR minus with +1 pitting edema extending to the knees bilaterally; dressing is in place circumferentially around the lower legs; the dorsal aspect of both feet are purple/mildly TTP; neurovascularly intact at DP/PT pulses; patient demonstrates ability to wiggle toes/plantarflex/dorsiflex bilaterally without unilateral deficits Neuro: A&Ox3; normal mood and affect; fluent speech; no focal deficits; sensation intact and symmetric in the lower extremity bilaterally Discharge Plan Discharge Items Patient Disposition: Home - Home Health Services Reason For Visit: ACUTE KIDNEY INJURY Discharge Diagnosis: Acute kidney injury, ambulatory dysfunction, hyponatremia Condition on Discharge: Fair Activity: As commented below Activity Comment: Gradually resume activity as tolerated; follow-up PT/OT JING hollis Non-emergency contact: Primary Care Provider Call non-emergency contact if: you have any medication questions, your symptoms worsen, your pain is not controlled, your pain is worsening and you have a fever Follow-up/Referrals: Hailey Munoz MD [Primary Care Provider] - 02/21/25 10:00 am Diet: Carb Consistent or DM2 Addtl Attending Provider Instructions: You are hospitalized at [facility] from 02/07 - 02/14 for for leg swelling and difficulty walking. On arrival, your blood work showed that you had an acute kidney injury, likely due to your current medications (Lasix, hydrochlorothiazide, and lisinopril). Additionally, your sodium levels dropped to a low of 123 (normal reference range 136-145). Over the course of your hospital stay, both your kidney function and sodium levels improved. However, we recommend that you stop taking hydrochlorothiazide upon discharge. Please plan to have repeat blood work drawn approximately 1 week following discharge to check your kidney function (this blood test is called a "basic metabolic panel" or BMP). Please also plan to follow-up with your PCP in the next 1 to 2 weeks for a transitional care appointment. NEW MEDICATIONS: We will be sending you home on a antibiotic called doxycycline for your venous stasis ulcers and lower extremity cellulitis. Please take this medication twice daily for the next 5 days to complete your 7-day course. For your leg swelling, we plan to send you home on Lasix 40 mg by mouth, which should be taken every other. Your next dose is scheduled for the morning of 02/16. Please take supplemental potassium pills (10mEq) every other day at the same time you take Lasix. The following medications have been sent to your pharmacy: - Doxycycline 100 mg twice daily x 5 additional days (10 tablets) - Sodium chloride 1000 mg tablets x 7 additional days (7 tablets) - Furosemide (i.e. Lasix) 40 mg every other day - Potassium 10 mEq every other day We have attached a pamphlet to your discharge paperwork outlining ways to prevent falls at home. Please follow PT/OT home health recommendations. Our family caseworker have set you up with [facility]" for home health, who are available to start services on 02/16. They will also help to manage wound care for your legs. Please be on the look out for further correspondence this week. If you develop any new or worsening symptoms, such as chest pain, shortness of breath, fevers, decreased urinary frequency, burning urination, blood in the urine, or difficulty walking, please return to the emergency department immediately. It was a pleasure taking care of you. Please reach out with any questions or concerns. Sincerely, The Hospital Medicine team at [facility] Pending Studies at Discharge: No Stand-Alone Forms: My [facility] Medications and DC Order Prescriptions: New furosemide 40 mg Tablet 40 mg PO Q2D Qty: 30 0RF Rx Instructions: Take 1 tablet by mouth every other day (starting on 02/16) doxycycline hyclate 100 mg Capsule 100 mg PO BID Qty: 10 0RF Rx Instructions: Take 1 tablet by mouth twice daily to complete 7-day course potassium chloride 10 mEq Tablet Extended Release 10 meq PO Q2D Qty: 30 0RF Rx Instructions: Take 1 tablet by mouth every other day (only take at the same time as furosemide, AKA "Lasix") sodium chloride 1,000 mg tablet,soluble 1,000 mg PO DAILY Qty: 7 0RF Rx Instructions: Take 1 tablet by mouth daily x 7 days Continued levothyroxine 200 mcg capsule 200 mcg PO DAILY nystatin 100,000 unit/gram powder 1 applic topical BID PRN loratadine [Claritin] 10 mg tablet 10 mg PO QAM Qty: 90 0RF albuterol sulfate [Ventolin HFA] 90 mcg/actuation HFA aerosol inhaler 2 puff INH QID PRN (Reason: sob) Qty: 18 1RF (DME) Accu-Chek Guide test strips Strip See Dose Instructions .ROUTE .MEDSUPPLY Qty: 100 1RF Dose Instruction: As directed Rx Instructions: check blood sugar 1 time per week; dx code- E11.9 (DME) lancets [Accu-Chek Fastclix Lancet Drum] Misc See Dose Instructions .ROUTE .MEDSUPPLY Qty: 200 1RF Dose Instruction: As directed Rx Instructions: test one time per week; dx code- E11.9 venlafaxine [Effexor XR] 150 mg capsule,extended release 24hr 150 mg PO DAILY Qty: 90 3RF Xarelto 20 mg tablet 20 mg PO QPM Qty: 90 1RF Rx Instructions: must administer with evening meal tamoxifen 20 mg tablet 20 mg PO QAM Qty: 90 2RF lisinopril 20 mg tablet 10 mg PO QAM Qty: 45 3RF Patient Comments: QAM oxybutynin chloride 10 mg tablet extended release 24hr 10 mg PO QAM Qty: 90 3RF omeprazole 20 mg capsule,delayed release(DR/EC) 40 mg PO QPM Qty: 180 1RF metformin 500 mg tablet 250 mg PO BID Qty: 90 3RF metoprolol succinate 25 mg tablet extended release 24 hr See Rx Instructions .ROUTE .COMPLEX Qty: 90 3RF Dose Instruction: TAKE 1 TABLET BY MOUTH DAILY. Rx Instructions: TAKE 1 TABLET BY MOUTH DAILY. Mounjaro 5 mg/0.5 mL pen injector 5 mg SUBCUT WK Qty: 4 3RF montelukast [Singulair] 10 mg tablet 10 mg PO QPM Qty: 90 1RF Patient Comments: HS simvastatin [Zocor] 40 mg tablet 40 mg PO HS Qty: 90 1RF Centrum Silver 0.4-300-250 mg-mcg-mcg tablet 1 tab PO QAM (DME) lancing device with lancets [Accu-Chek FastClix Lancing Dev] Kit See Rx Instructions .Route Qty: 1 3RF Rx Instructions: TEST ONCE WEEKLY (DME) compress.stocking,knee,reg,lrg Misc See Rx Instructions .Route Qty: 2 0RF Rx Instructions: Use for swelling mometasone 50 mcg/actuation Economy,Non-Aerosol 2 spray INTRANASAL DAILY sodium chloride [Iftikhar 128] 5 % Ointment 1 applic OPHTHALMIC (EYE) HS vitamin E 268 mg (400 unit) Capsule 268 mg PO QPM calcium carbonate [Tums Ultra] 400 mg calcium (1,000 mg) Tablet,Chewable 400 mg PO QAM miconazole nitrate [Desenex] 2 % Powder 1 applic EXT PRN PRN (Reason: skin irritation) Qty: 85 0RF omega 4-qfa-zsb-fish oil [Fish Oil] 1,000 mg (120 mg-180 mg) Capsule 1 cap PO QPM Discontinued hydrochlorothiazide 25 mg tablet 25 mg PO QAM Qty: 90 1RF Patient Comments: QAM cephalexin 500 mg capsule 500 mg PO Q8H Qty: 30 0RF furosemide 40 mg tablet 40 mg PO DAILY PRN (Reason: edema) Qty: 30 5RF Discharge Orders: Discharge Order (Routine); Ordered 02/14/25 Ordered By: Ranjith Garcia/Other Patient Handouts: Managing Type 2 Diabetes, Preventing Falls in the Home, ED Cellulitis, Staph MRSA Admission Data Admit Date/Time: 02/07/25 20:30 Attending Provider: Jessica Newton Admit Provider: Lloyd Patricio Primary Care Provider: Hailey Munoz Other Providers: Lloyd Patricio; IRB Approved Study,Shanice; [facility]; [facility]; [place]; [place] Other Interventions: Discharge Summary Assessment (RN) Last Done: 02/14/25 14:54 Hospital Stay Data Consultations 02/07/25 20:18 ED Decision to Admit Stat Diagnostic Imagining Performed 02/08/25 US renal/blad retro comp Routine Discharge Instructions Given to Patient (Per Discharging Provider) You are hospitalized at [facility] from 02/07 - 02/14 for for leg swelling and difficulty walking. On arrival, your blood work showed that you had an acute kidney injury, likely due to your current medications (Lasix, hydrochlorothiazide, and lisinopril). Additionally, your sodium levels dropped to a low of 123 (normal reference range 136-145). Over the course of your hospital stay, both your kidney function and sodium levels improved. However, we recommend that you stop taking hydrochlorothiazide upon discharge. Please plan to have repeat blood work drawn approximately 1 week following discharge to check your kidney function (this blood test is called a "basic metabolic panel" or BMP). Please also plan to follow-up with your PCP in the next 1 to 2 weeks for a transitional care appointment. NEW MEDICATIONS: We will be sending you home on a antibiotic called doxycycline for your venous stasis ulcers and lower extremity cellulitis. Please take this medication twice daily for the next 5 days to complete your 7-day course. For your leg swelling, we plan to send you home on Lasix 40 mg by mouth, which should be taken every other. Your next dose is scheduled for the morning of 02/16. Please take supplemental potassium pills (10mEq) every other day at the same time you take Lasix. The following medications have been sent to your pharmacy: - Doxycycline 100 mg twice daily x 5 additional days (10 tablets) - Sodium chloride 1000 mg tablets x 7 additional days (7 tablets) - Furosemide (i.e. Lasix) 40 mg every other day - Potassium 10 mEq every other day We have attached a pamphlet to your discharge paperwork outlining ways to prevent falls at home. Please follow PT/OT home health recommendations. Our family caseworker have set you up with "[facility]" for home health, who are available to start services on 02/16. They will also help to manage wound care for your legs. Please be on the look out for further correspondence this week. If you develop any new or worsening symptoms, such as chest pain, shortness of breath, fevers, decreased urinary frequency, burning urination, blood in the urine, or difficulty walking, please return to the emergency department immediately. It was a pleasure taking care of you. Please reach out with any questions or concerns. Sincerely, The Hospital Medicine team at [facility] Supervising Physician Co-Signing Physician Notes ROSEANN Supervision Note: I did not personally see or examine the patient today, but I verified all tony points of ROSEANN Hollingsworth's assessment and plan with the following exceptions/additions: None Total Time Total Time Spent Total Time Spent (In Minutes): 45 Coding [place] [address] INP/OBS DISCH >30 MIN Patient Type Established Medical Decision Making High Complexity Diagnoses YADY (acute kidney injury) N17.9 Lower extremity venous stasis I87.8 Type 2 diabetes mellitus without complication, without long-term current use of insulin E11.9 Diabetes mellitus complication status: without complication Diabetes mellitus long term acute care registered nurse insulin use: without long term acute care registered nurse use Deep venous thrombosis (DVT) of right peroneal vein, unspecified chronicity I82.451 Affected thrombotic vein of extremity: peroneal Chronicity: unspecified DVT location: lower extremity Laterality: right
[2025-02-16] MEDS ORDERED: POTASSIUM CHLORIDE 10 MEQ TABCR PO SCH (09:00)
== END 2025-02-14 16:39 | disposition home health service (06) | DRG 682 ==
LOC: ED 18:09 → 3W 20:30 → SUATTDRO 20:30 → 3W 21:27